=== PATIENT | female | born 1980 | race Caucasian/White ===

== ENCOUNTER 2020-05-04 12:46 | Emergency (ER) | payer BC, SELFPAY ==
[2020-05-04 13:30] VITALS: BP 128/87; PULSE 71; RESP 19; TEMP 36.8; O2SAT 98; BMI 35.1
--- NOTE | 2020-05-04 13:54 | HMH.EDUTC ---
[facility] [place] Clinical Impression: Exposure to COVID-19 virus Disposition: Home, Self-Care Condition on Discharge: Good Instructions: DI for COVID-19 (Suspected or Confirmed ), COVID-19: Testing and Tracing, Preventing the Spread of Coronavirus Discharge Instructions Additional Instructions: *Monitor Temp, Over the counter Motrin or Tylenol as directed/as needed Tylenol every 4 hours and Motrin every 6 hours (as long as your family doctor has told you that you can take it) for fever or pain. and straight to ER if unable to lower temp less than 101.0 after medication given Follow up IMMEDIATELY for new or worsening symptoms or no Noticeable improvement over the next 48-72 hours. 911 for difficulty breathing or swallowing You were tested for today for COVID19 your test result should be back in the next 24-48 hours, you may call to the [facility] to see if your test results are back in the next 48 hours [phone] [facility] hours are 9am-9pm You was given a handout with instructions for Self Quarantine and Self isolation for while you wait on test results and what to do if they are positive If you are positive the Health Dept will be contacting you also Referrals: Jemima Hayes MD [Primary Care Provider] - As needed Forms: Work/School Release Time of Disposition: 13:55 Medical Decision Making - Molina Inquiry Pt receiving controlled substance: No Molina was queried for this patient: No Vital Signs: 05/04/20 13:30 Temperature 98.2 F Temperature Source Oral Pulse Rate [Right Brachial] 71 Respiratory Rate 19 Blood Pressure [Right Arm] 128/87 Blood Pressure Mean [Right Arm] 100 Blood Pressure Source [Right Arm] Automatic Cuff Blood Pressure Position [Right Arm] Sitting 02 Sat by Pulse Oximetry 98 Oxygen Delivery Method Room Air Orders (Tests/Meds): ORDERS Category Date Time Status Covid-19 Nasal PCR ([facility]) Routine Lab 05/04/20 13:30 Received [facility] [place] - General Stated complaint: covid test Time Seen by Provider: 05/04/20 13:54 Mode of Arrival: Ambulatory Source of Information: Patient Limitations: No Limitations Description of Symptoms (Recalled from Triage Doc. by RN): PATIENT REQUESTING COVID TEST D/T EXPOSURE; DENIES SYMPTOMS HEENT Symptoms (Recalled from RN notes): No Resp Symptoms (Recalled from RN notes): No Skin Symptoms (Recalled from RN notes): No MS Symptoms (Recalled from RN notes): No Functional Status (Recalled from RN notes): WNL - History of Present Illness Provider Complaint: Patient states that she was recently around both her children that has since tested positive for COVID States that she isnt having any symptoms but wanted to get tested - Related Data Home Medications Medication Instructions Recorded Confirmed Buspirone HCl [Buspar 5mg tablet] 5 mg PO DAILY 11/17/17 02/28/19 Eletriptan Hydrobromide [Relpax] 20 mg PO NEEDED PRN 02/28/19 02/28/19 Allergies Allergy/AdvReac Type Severity Reaction Status Date / Time No Known Allergies Allergy Verified 02/28/19 15:00 - Worker's Comp Is this a Worker's Comp case?: No [facility] History - Hepatitis A Screen Drug use history?: No High risk sexual behaviors?: No History of sexually transmitted infection?: No Currently employed?: No Childcare worker?: No Do you have indoor plumbing?: Yes Do you have electricity?: Yes Attestation statement:: This patient has been screened for Hepatitis A risk factors. I have reviewed the patient's past medical history: Yes Medical History: Denies:: Cancer, Diabetes Mellitus Type 1, Diabetes Mellitus Type 2, MRSA Amputation: No Fractures: No - Social History Smoking Status: Current every day smoker # Packs/Day (cigarettes): 1 Alcohol Intake: never Occupational Status: other Household Members: children Family Hx:: Cancer, Coronary Artery Disease, Hyperlipidemia, Hypertension ROS Obtained: Yes All systems reviewed & no additional complaints, Yes Systems reviewed as appropriate & n
[2020-05-04 14:08] VITALS: BP 128/87; PULSE 71; RESP 19; TEMP 36.8; O2SAT 98
== END 2020-05-04 14:10 | disposition home or self-care (01) ==
PROVIDERS: Emergency Provider Nurse Practitioner; PCP Family Medicine
DX: Z20.822 Contact with and (suspected) exposure to COVID-19 (principal)
CPT/HCPCS: 99202; G0463; U0003

== ENCOUNTER 2020-05-13 10:23 | Emergency (ER) | payer BC, SELFPAY ==
[2020-05-13 10:23] VITALS: BP 133/68; PULSE 77; RESP 18; TEMP 36.6; O2SAT 98; BMI 30.9
--- NOTE | 2020-05-13 10:43 | HMH.EDUTC ---
[facility] [place] Disposition Clinical Impression: Encounter for laboratory testing for COVID-19 virus Disposition: Home, Self-Care Condition on Discharge: Good Instructions: DI for COVID-19 (Suspected or Confirmed ), Coronavirus Disease 2019, Preventing the Spread of Coronavirus Discharge Instructions Additional Instructions: *Monitor Temp, Over the counter Motrin or Tylenol as directed/as needed Tylenol every 4 hours and Motrin every 6 hours (as long as your family doctor has told you that you can take it) for fever or pain. and straight to ER if unable to lower temp less than 101.0 after medication given Follow up IMMEDIATELY for new or worsening symptoms or no Noticeable improvement over the next 48-72 hours. 911 for difficulty breathing or swallowing You were tested for today for COVID19 your test result should be back in the next 24-48 hours, you may call to the [facility] to see if your test results are back in the next 48 hours [phone] [facility] hours are 9am-9pm You was given a handout with instructions for Self Quarantine and Self isolation for while you wait on test results and what to do if they are positive If you are positive the Health Dept will be contacting you also Referrals: Jemima Hayes MD [Primary Care Provider] - As needed Forms: Work/School Release Time of Disposition: 10:45 Medical Decision Making - Molina Inquiry Pt receiving controlled substance: No Molina was queried for this patient: No Vital Signs: 05/13/20 10:23 Temperature 97.8 F Temperature Source Oral Pulse Rate [Right] 77 Respiratory Rate 18 Blood Pressure [Right Arm] 133/68 Blood Pressure Mean [Right Arm] 89 02 Sat by Pulse Oximetry 98 Orders (Tests/Meds): ORDERS Category Date Time Status Covid-19 Nasal PCR Sendout P&C Stat Lab 05/13/20 10:25 Ordered [facility] [place] HPI - General Stated complaint: exposure Time Seen by Provider: 05/13/20 10:43 Description of Symptoms (Recalled from Triage Doc. by RN): pt request covid test pt has no symptoms HEENT Symptoms (Recalled from RN notes): No Resp Symptoms (Recalled from RN notes): No Skin Symptoms (Recalled from RN notes): No MS Symptoms (Recalled from RN notes): No Functional Status (Recalled from RN notes): wnl - History of Present Illness Provider Complaint: Patient states that she needs to get a COVID test to return to work State that her daughters recently was positive for COVID and she has to have a test to return to work - Related Data Home Medications Medication Instructions Recorded Confirmed Buspirone HCl [Buspar 5mg tablet] 5 mg PO DAILY 11/17/17 02/28/19 Eletriptan Hydrobromide [Relpax] 20 mg PO NEEDED PRN 02/28/19 02/28/19 Allergies Allergy/AdvReac Type Severity Reaction Status Date / Time No Known Allergies Allergy Verified 05/13/20 10:39 - Worker's Comp Is this a Worker's Comp case?: No Is this an H Worker's Comp?: No Is this a Leo Worker's Comp?: No [facility] History - Hepatitis A Screen Drug use history?: No High risk sexual behaviors?: No History of sexually transmitted infection?: No Currently employed?: No Childcare worker?: No Do you have indoor plumbing?: Yes Do you have electricity?: Yes Attestation statement:: This patient has been screened for Hepatitis A risk factors. I have reviewed the patient's past medical history: Yes Medical History: Denies:: Cancer, Diabetes Mellitus Type 1, Diabetes Mellitus Type 2, MRSA Amputation: No Fractures: No - Social History Smoking Status: Current every day smoker # Packs/Day (cigarettes): 1 Alcohol Intake: never Occupational Status: other Household Members: children Family Hx:: Cancer, Coronary Artery Disease, Hyperlipidemia, Hypertension ROS Obtained: Yes All systems reviewed & no additional complaints, Yes Systems reviewed as appropriate & no additional complaints - Constitutional Constitutional: Reports system reviewed and no additional complaints, except as docu, Denies body ache,
[2020-05-13 10:51] VITALS: BP 133/68; PULSE 77; RESP 18; TEMP 36.6; O2SAT 98
[2020-05-14 11:39] LABS: Covid-19 Nasal PCR Sendout P&C NEGATIVE
== END 2020-05-13 10:57 | disposition home or self-care (01) ==
PROVIDERS: Emergency Provider Nurse Practitioner; PCP Family Medicine
DX: Z20.822 Contact with and (suspected) exposure to COVID-19 (principal); F17.210 Nicotine dependence, cigarettes, uncomplicated
CPT/HCPCS: 99202; G0463; U0004

== ENCOUNTER → 2020-09-18 07:58 | Outpatient (CLI) | payer BC, SELFPAY ==
--- NOTE | 2020-09-18 08:05 | US_ITS ---
PROCEDURE: US ABDOMEN COMPLETE CLINICAL INDICATION: RUQ PAIN COMPARISON: US RUQ US RUQ-(ABD LTD)1ORGAN/QUAD/FU from 08/12/2016 FINDINGS: PANCREAS: Unremarkable. No obvious mass or abnormal fluid collection. No ductal dilatation LIVER: No focal liver lesions demonstrated. Homogeneous echogenicity. No intrahepatic biliary ductal dilatation evident. There is appropriate direction of blood flow within a non dilated portal vein RIGHT KIDNEY: Unremarkable. Normal size and echogenicity. No hydronephrosis LEFT KIDNEY: Unremarkable. Normal size and echogenicity. No hydronephrosis GALLBLADDER: No gallstones, gallbladder wall thickening, pericholecystic fluid, or biliary dilatation. AORTA: No evidence of aneurysmal dilatation. SPLEEN: Unremarkable. Normal size and echogenicity ASCITES: None demonstrated. IMPRESSION: Unremarkable abdominal ultrasound. Dictated by: Marcus Ferreira MD 09/19/2020 07:09 Marcus Ferreira MD in [place] 09/19/2020 07:09
== END ==
PROVIDERS: PCP Family Medicine; Visit Provider Family Medicine
DX: R10.11 Right upper quadrant pain (principal)
CPT/HCPCS: 76700

== ENCOUNTER → 2020-10-13 10:06 | Outpatient (CLI) | payer BC, SELFPAY ==
--- NOTE | 2020-10-13 10:09 | NM_ITS ---
PROCEDURE: NM HEPATOBILIARY W PHARM CLINICAL INDICATION: RUQ PAIN COMPARISON: No exams were available for comparison FINDINGS: There is normal homogeneous uptake within the liver with normal uptake in the biliary tree and gallbladder and normal excretion of radiotracer into the duodenum by 1 hour. With IV injection of CCK, the gallbladder ejection fraction is normal at 50 percent (normal is 35 percent or greater). The patient did complain of mild 3/10 upper abdominal pain with IV injection of CCK. IMPRESSION: Normal hepatobiliary scan with normal gallbladder ejection fraction of 50 percent. Mild 3/10 upper abdominal pain with IV injection of CCK. Dictated by: Delonte Ying MD 10/13/2020 15:47 Delonte Ying MD in [place] 10/13/2020 15:47
--- NOTE | 2020-10-13 10:43 | HMH.ITSHM ---
Current Home Medications as stated by this patient Tori Earl or commercial representative. []MARIAELENA
== END ==
PROVIDERS: PCP Family Medicine; Visit Provider Family Medicine
DX: R10.11 Right upper quadrant pain (principal)
CPT/HCPCS: 78227; A9537; J2805

== ENCOUNTER 2020-12-28 09:14 | Emergency (ER) | payer BC, SELFPAY ==
[2020-12-28 10:05] VITALS: BP 123/74; PULSE 76; RESP 19; TEMP 37.1; O2SAT 98; BMI 33.0
--- NOTE | 2020-12-28 10:35 | HMH.EDUTC ---
[facility] [place] Disposition Clinical Impression: Encounter for laboratory testing for COVID-19 virus Disposition: Home, Self-Care Condition on Discharge: Good Instructions: DI for COVID-19 (Suspected or Confirmed ), Preventing the Spread of Coronavirus Discharge Instructions Additional Instructions: *Monitor Temp, Over the counter Motrin or Tylenol as directed/as needed Tylenol every 4 hours and Motrin every 6 hours (as long as your family doctor has told you that you can take it) for fever or pa-in. and straight to ER if unable to lower temp less than 101.0 after medication given Follow up IMMEDIATELY for new or worsening symptoms or no Noticeable improvement over the next 48-72 hours. 911 for difficulty breathing or swallowing You were tested for today for COVID19 your test result should be back in the next 24-48 hours, Check the [facility] Portal to see if your test results are back in the next 48 it may say detected that means your result is positive.You was given handout instructions on how log on and see your results. If you do not have internet access you may call the [facility] for your results [phone] You was given a handout with instructions for Self Quarantine and Self isolation for while you wait on test results and what to do if they are positive If you are positive the Health Dept will be contacting you also Make sure to take your Vitamins Vit. C Vit D and Zinc if you can take them Referrals: Ronak Reyna MD [Primary Care Provider] - As needed Forms: Work/School Release Time of Disposition: 10:36 Medical Decision Making - Molina Inquiry Pt receiving controlled substance: No Molina was queried for this patient: No Vital Signs: 12/28/20 10:05 Temperature 98.7 F Temperature Source Oral Pulse Rate [Right Brachial] 76 Respiratory Rate 19 Blood Pressure [Right Arm] 123/74 Blood Pressure Mean [Right Arm] 90 Blood Pressure Source [Right Arm] Automatic Cuff Blood Pressure Position [Right Arm] Sitting 02 Sat by Pulse Oximetry 98 Oxygen Delivery Method Room Air [facility] [place] HPI - General Stated complaint: covid test Time Seen by Provider: 12/28/20 10:36 Mode of Arrival: Ambulatory Source of Information: Patient Limitations: No Limitations Description of Symptoms (Recalled from Triage Doc. by RN): COVID TEST D/T EXPOSURE. DENIES SYMPTOMS HEENT Symptoms (Recalled from RN notes): No Resp Symptoms (Recalled from RN notes): No Skin Symptoms (Recalled from RN notes): No MS Symptoms (Recalled from RN notes): No Functional Status (Recalled from RN notes): WNL - History of Present Illness Provider Complaint: Patient state that she has been on quarantine at work due to exposure to COVID State that she has to have a negative COVID test before she can return to work Denies symptoms - Related Data Home Medications Medication Instructions Recorded Confirmed Buspirone HCl [Buspar 5mg tablet] 5 mg PO DAILY 11/17/17 02/28/19 Eletriptan Hydrobromide [Relpax] 20 mg PO NEEDED PRN 02/28/19 02/28/19 Allergies Allergy/AdvReac Type Severity Reaction Status Date / Time No Known Allergies Allergy Verified 05/13/20 10:39 - Worker's Comp Is this a Worker's Comp case?: No [facility] History - Hepatitis A Screen Drug use history?: No High risk sexual behaviors?: No History of sexually transmitted infection?: No Currently employed?: No Childcare worker?: No Do you have indoor plumbing?: Yes Do you have electricity?: Yes Attestation statement:: This patient has been screened for Hepatitis A risk factors. I have reviewed the patient's past medical history: Yes Medical History: Denies:: Cancer, Diabetes Mellitus Type 1, Diabetes Mellitus Type 2, MRSA Amputation: No Fractures: No - Social History Smoking Status: Current every day smoker # Packs/Day (cigarettes): 1 Alcohol Intake: never Occupational Status: other Household Members: children Family Hx:: Cancer, Coronary Artery Disease, Hyperlipidemia, Hypertension R
[2020-12-28 10:40] VITALS: BP 123/74; PULSE 76; RESP 19; TEMP 37.1; O2SAT 98
--- NOTE | 2020-12-29 12:48 | PC.NURSE ---
Notified pt of positive results
== END 2020-12-28 10:44 | disposition home or self-care (01) ==
PROVIDERS: Emergency Provider Nurse Practitioner; PCP Family Medicine
DX: U07.1 COVID-19 (principal); F17.210 Nicotine dependence, cigarettes, uncomplicated
CPT/HCPCS: 99202; G0463; U0003

== ENCOUNTER 2021-01-04 20:01 | Emergency (ER) | payer BC, SELFPAY ==
[2021-01-04 20:45] VITALS: BP 150/80; PULSE 63; RESP 18; TEMP 36.4; O2SAT 97; BMI 33.0
--- NOTE | 2021-01-04 21:16 | HMH.EDUTC ---
[facility] [place] Disposition Clinical Impression: Encounter for laboratory testing for COVID-19 virus Disposition: Home, Self-Care Condition on Discharge: Good Instructions: DI for COVID-19 (Suspected or Confirmed ), Preventing the Spread of Coronavirus Discharge Instructions Additional Instructions: *Monitor Temp, Over the counter Motrin or Tylenol as directed/as needed Tylenol every 4 hours and Motrin every 6 hours (as long as your family doctor has told you that you can take it) for fever or pain. and straight to ER if unable to lower temp less than 101.0 after medication given Follow up IMMEDIATELY for new or worsening symptoms or no Noticeable improvement over the next 48-72 hours. 911 for difficulty breathing or swallowing You were tested for today for COVID19 your test result should be back in the next 24-48 hours, You was given instructions to check on [facility] for your results if you do not have internet access you may call the [facility] You was given a handout with instructions for Self Quarantine and Self isolation for while you wait on test results and what to do if they are positive If you are positive the Health Dept will be contacting you also Make sure to take your Vitamins Vit. C Vit D and Zinc if you can take them Referrals: Ronak Reyna MD [Primary Care Provider] - As needed Forms: Work/School Release Time of Disposition: 21:20 Medical Decision Making - Molina Inquiry Pt receiving controlled substance: No Molina was queried for this patient: No Vital Signs: 01/04/21 20:45 Temperature 97.5 F L Temperature Source Oral Pulse Rate [Right Brachial] 63 Respiratory Rate 18 Blood Pressure [Right Arm] 150/80 H Blood Pressure Mean [Right Arm] 103 Blood Pressure Source [Right Arm] Automatic Cuff Blood Pressure Position [Right Arm] Sitting 02 Sat by Pulse Oximetry 97 Oxygen Delivery Method Room Air Orders (Tests/Meds): ORDERS Category Date Time Status Covid-19 Nasal PCR ([facility]) Routine Lab 01/04/21 21:11 Ordered [facility] HPI - General Stated complaint: Covid test (12/28 Was +) Time Seen by Provider: 01/04/21 21:16 Mode of Arrival: Ambulatory Source of Information: Patient Limitations: No Limitations Description of Symptoms (Recalled from Triage Doc. by RN): PATIENT TESTED POSITIVE A WEEK AGO. NEEDING NEGATIVE COVID TEST TO RETURN TO WORK HEENT Symptoms (Recalled from RN notes): No Resp Symptoms (Recalled from RN notes): No Skin Symptoms (Recalled from RN notes): No MS Symptoms (Recalled from RN notes): No Functional Status (Recalled from RN notes): WNL - History of Present Illness Provider Complaint: Patient states that she was exposed to COVID several weeks ago and was in quarantine States that they made her get tested for COVID before she could return on 12/28 and she was positive for COVID states that she is not having any symptoms and came back in to get tested again to see if she was negative so she can return to work - Related Data Home Medications Medication Instructions Recorded Confirmed Buspirone HCl [Buspar 5mg tablet] 5 mg PO DAILY 11/17/17 02/28/19 Eletriptan Hydrobromide [Relpax] 20 mg PO NEEDED PRN 02/28/19 02/28/19 Allergies Allergy/AdvReac Type Severity Reaction Status Date / Time No Known Allergies Allergy Verified 05/13/20 10:39 - Worker's Comp Is this a Worker's Comp case?: No [facility] History - Hepatitis A Screen Drug use history?: No High risk sexual behaviors?: No History of sexually transmitted infection?: No Currently employed?: No Childcare worker?: No Do you have indoor plumbing?: Yes Do you have electricity?: Yes Attestation statement:: This patient has been screened for Hepatitis A risk factors. I have reviewed the patient's past medical history: Yes Medical History: Denies:: Cancer, Diabetes Mellitus Type 1, Diabetes Mellitus Type 2, MRSA Amputation: No Fractures: No - Social History Smoking Status: Current every day smoker # P
[2021-01-04 21:22] VITALS: BP 150/80; PULSE 63; RESP 18; TEMP 36.4; O2SAT 97
== END 2021-01-04 21:23 | disposition home or self-care (01) ==
PROVIDERS: Emergency Provider Nurse Practitioner; PCP Family Medicine
DX: Z20.822 Contact with and (suspected) exposure to COVID-19 (principal)
CPT/HCPCS: 99202; G0463; U0003

== ENCOUNTER → 2021-02-17 17:59 | Outpatient (CLI) | payer BC, SELFPAY | PROVIDERS: PCP Family Medicine; Visit Provider Nurse Practitioner | DX: Z20.822 Contact with and (suspected) exposure to COVID-19 (principal) | CPT/HCPCS: C9803; U0003; U0005 ==

== ENCOUNTER 2021-03-13 18:55 | Emergency (ER) | payer BC, SELFPAY ==
[2021-03-13 19:00] VITALS: BP 177/81; PULSE 88; RESP 18; TEMP 37.1; O2SAT 97; BMI 30.8
[2021-03-13 19:34] LABS: UTC Strep Screen (Rapid) Negative (Negative)
--- NOTE | 2021-03-13 19:48 | HMH.EDUTC ---
[facility] [place]ression: Bronchitis Disposition: Home, Self-Care Condition on Discharge: Good Instructions: Acute Bronchitis, DI for Acute Bronchitis Additional Instructions: Start antibiotic today. Be sure to complete entire prescription even if feeling better Tylenol and ibuprofen as needed for pain or fever Humidifier/vaporizer/hot steamy shower Follow-up with primary care tomorrow. Follow-up immediately in the ER of the [facility] for new or worsening symptoms or no noticeable improvement over the next 48-72 hours. Stop smoking Yolanda Isabel will not cause drowsiness to use at bedtime to help stop cough so that she can get some sleep Start steroids tomorrow. Helps with inflammation therefore coughing and wheezing. Follow directions on package. Prescriptions: predniSONE [Prednisone 20mg Tab] 20 mg PO BID #10 tab Transmission Status: Pending to [facility] Azithromycin [Zithromax 250mg tab] 250 mg PO DIRECTED 4 Days #4 tab Transmission Status: Pending to [facility] Referrals: Ronak Reyna MD [Primary Care Provider] - Time of Disposition: 19:52 Medical Decision Making - Molina Inquiry Pt receiving controlled substance: No Vital Signs: 03/13/21 19:00 Temperature 98.7 F Temperature Source Oral Pulse Rate [Right Brachial] 88 Respiratory Rate 18 Blood Pressure [Left Arm] 177/81 H Blood Pressure Mean [Left Arm] 113 Blood Pressure Source [Left Arm] Automatic Cuff Blood Pressure Position [Left Arm] Sitting 02 Sat by Pulse Oximetry 97 Oxygen Delivery Method Room Air - Lab Data Lab Results 03/13/21 19:16: Strep Scn Rapid Clinic Negative Orders (Tests/Meds): ORDERS Category Date Time Status Strep Screen Confirmation Stat Micro 03/13/21 19:16 Re[place] [facility] [place] - General Chief complaint: [facility] Stated complaint: sore throat, wheezing,cough Time Seen by Provider: 03/13/21 19:48 Mode of Arrival: Ambulatory Source of Information: Patient Limitations: No Limitations Description of Symptoms (Recalled from Triage Doc. by RN): PATIENT C/O SORE THROAT, COUGH AND WHEEZING SINCE MONDAY HEENT Symptoms (Recalled from RN notes): Yes Resp Symptoms (Recalled from RN notes): Yes Skin Symptoms (Recalled from RN notes): No MS Symptoms (Recalled from RN notes): No Functional Status (Recalled from RN notes): WNL - History of Present Illness Provider Complaint: 40 yr old female presents for sore throat, cough, wheezing and congestion since monday. - Related Data Home Medications Medication Instructions Recorded Confirmed Buspirone HCl [Buspar 5mg tablet] 5 mg PO DAILY 11/17/17 02/28/19 Eletriptan Hydrobromide [Relpax] 20 mg PO NEEDED PRN 02/28/19 02/28/19 Previous Rx's Medication Instructions Recorded Azithromycin [Zithromax 250mg 250 mg PO DIRECTED 4 Days #4 tab 03/13/21 tab] predniSONE [Prednisone 20mg 20 mg PO BID #10 tab 03/13/21 Tab] Allergies Allergy/AdvReac Type Severity Reaction Status Date / Time No Known Allergies Allergy Verified 05/13/20 10:39 - Worker's Comp Is this a Worker's Comp case?: No [facility] History - Hepatitis A Screen Drug use history?: No High risk sexual behaviors?: No History of sexually transmitted infection?: No Currently employed?: No Childcare worker?: No Do you have indoor plumbing?: Yes Do you have electricity?: Yes Attestation statement:: This patient has been screened for Hepatitis A risk factors. I have reviewed the patient's past medical history: Yes Medical History: Denies:: Cancer, Diabetes Mellitus Type 1, Diabetes Mellitus Type 2, MRSA Amputation: No Fractures: No - Social History Smoking Status: Current every day smoker # Packs/Day (cigarettes): 1 Alcohol Intake: never Occupational Status: other Household Members: children Family Hx:: Cancer, Coronary Artery Disease, Hyperlipidemia, Hypertension ROS Obtained: Yes Systems reviewed as appr
[2021-03-13 19:56] VITALS: BP 177/81; PULSE 88; RESP 18; TEMP 37.1; O2SAT 97
== END 2021-03-13 20:00 | disposition home or self-care (01) ==
PROVIDERS: Emergency Provider Nurse Practitioner Family; PCP Family Medicine
DX: J20.9 Acute bronchitis, unspecified (principal); F17.210 Nicotine dependence, cigarettes, uncomplicated
CPT/HCPCS: 87880; 99202; G0463

== ENCOUNTER 2021-05-01 11:34 | Emergency (ER) | payer BC, SELFPAY ==
[2021-05-01 11:48] VITALS: BP 200/110; PULSE 67; RESP 16; TEMP 37.1; O2SAT 97; BMI 26.6
--- NOTE | 2021-05-01 12:19 | HMH.EDGENADL ---
ED Disposition Clinical Impression: Migraine Qualifiers: Migraine type: with aura Status migrainosus presence: without status migrainosus Intractability: not intractable Qualified Code(s): G43.109 - Migraine with aura, not intractable, without status migrainosus Disposition: Home, Self-Care Condition on Discharge: Good Instructions: DI for Migraine Additional Instructions: You have been evaluated for migraine headaches. Please continue to monitor your symptoms. Keep a headache journal. Take medication as prescribed. Avoid migraine triggers. Follow-up with your primary care doctor and neurologist. Return to the emergency department at once for any new or worsening symptoms. Referrals: Jemima Hayes MD [Primary Care Provider] - Time of Disposition: 13:55 - Critical Care Critical Care Time: No Attestation: On 05/01/21, the high probability of a clinically significant, sudden or life threatening deterioration of the following system(s) required my full and direct attention, intervention and personal management. The time I documented below is in addition to time spent performing reported procedures but includes the following listed in this critical care notation. Medical Decision Making - Medical Records Medical records reviewed: Yes: I reviewed the patient's medical records. - Molina Inquiry Pt receiving controlled substance: No Vital Signs: 05/01/21 11:48 Temperature 98.7 F Temperature Source Oral Pulse Rate [Left Radial] 67 Respiratory Rate 16 02 Sat by Pulse Oximetry 97 - Lab Data Lab Results 05/01/21 12:07: Urine HCG, Qual Negative 05/01/21 12:20: WBC 10.6, RBC 4.83, Hgb 14.8, Hct 45.8, MCV 94.7, MCH 30.6, MCHC 32.3, RDW 14.5, Plt Count 320, MPV 7.8, Neut % (Auto) 75.4, Lymph % (Auto) 18.3, [place] % (Auto) 4.3, Eos % (Auto) 1.0, Baso % (Auto) 0.8, Neut # (Auto) 8.0 H, Lymph # (Auto) 2.0, [place] # (Auto) 0.5, Eos # (Auto) 0.1, Baso # (Auto) 0.1 05/01/21 12:20: Sodium 137, Potassium 3.4 L, Chloride 96 L, Carbon Dioxide 32 H, Anion Gap 12.4, BUN 9, Creatinine 0.80, Estimated Creat Clear 122, Estimated GFR 80, Est GFR ( Amer) 97, Glucose 117 H, Calcium 9.2, Total Bilirubin 0.4, AST 27, ALT 17, Alkaline Phosphatase 82, Total Protein 7.2, Albumin 4.3, Globulin 2.9, Albumin/Globulin Ratio 1.5 Result diagrams: 05/01/21 12:20 05/01/21 12:20 Orders (Tests/Meds): ED MEDICATIONS Discontinued Medications Generic Name Dose Route Start Last Admin Trade Name Romulo PRN Reason Stop Dose Admin Dexamethasone Sodium Phosphate 8 mg 05/01/21 12:39 05/01/21 12:50 Dexamethasone 4mg/Ml 1ml Vial IV 05/01/21 12:40 8 mg ONCE ONE Administration Diphenhydramine HCl 25 mg 05/01/21 12:39 05/01/21 12:51 Diphenhydramine 50mg/Ml Vial IV 05/01/21 12:40 25 mg ONCE ONE Administration Sodium Chloride 1,000 mls @ 999 mls/hr 05/01/21 12:45 05/01/21 13:10 Sod Chlor 0.9% 1000ml Bag IV 05/01/21 13:45 999 mls/hr .Q1H1M HANNAH Administration Ketorolac Tromethamine 15 mg 05/01/21 12:39 05/01/21 12:51 Ketorolac 30mg/Ml Vial IV 05/01/21 12:40 15 mg ONCE ONE Administration Metoclopramide HCl 10 mg 05/01/21 12:39 05/01/21 12:51 Metoclopramide Hcl 10mg/2ml Vial IVP 05/01/21 12:40 10 mg ONCE ONE Administration Medical Decision Narrative: In summary this is a 40-year-old female with history of migraine headaches presenting to the emergency department with a headache. Patient clinically stable on arrival. Vital signs within normal limits. Most likely diagnosis is migraine. Will obtain screening CBC, CMP, hCG. CT negative. Laboratory results show slight hypokalemia. No other acute abnormality. Patient given IV Toradol, Reglan, Benadryl, dexamethasone. On reassessment, after fluids and medication she was feeling better. Headache had decreased to more than 50%. No new or concerning features. No vision changes. No dizziness. No nausea or vomiting. Offered her next line m
[2021-05-01 12:25] LABS: Urine Pregnancy, HCG Qual. Negative (Negative)
[2021-05-01 12:30] VITALS: BP 190/98; PULSE 64; RESP 18; O2SAT 98
[2021-05-01 12:51] LABS: Basophils # 0.1 K/mm3 (0-0.2); Basophils % 0.8 % (0.1-2.0); Eosinophils # 0.1 K/mm3 (0.0-0.4); Hematocrit 45.8 % (37.0-47.0); Hemoglobin 14.8 g/dL (12.2-16.2); Lymphocytes % 18.3 % (10-50); Mean Corpuscular HGB Conc 32.3 g/dL (31.8-35.4); Mean Corpuscular Hemoglobin 30.6 pg (27.0-31.2); Mean Corpuscular Volume 94.7 fl (81-99); Mean Platelet Volume 7.8 fl (7.4-10.4); Monocytes # 0.5 K/mm3 (0.1-1.0); Monocytes % 4.3 % (1.7-9.3); Neutrophils % 75.4 % (37.0-80.0); Platelet Count 320 K/mm3 (142-424); Red Blood Count 4.83 M/mm3 (4.20-5.40); Red Cell Distribution Width 14.5 % (11.5-17.5); White Blood Count 10.6 K/mm3 (4.8-10.8)
[2021-05-01 12:52] LABS: Chloride 96 mmol/L (98-107); Sodium 137 mmol/L (136-145)
[2021-05-01 12:53] LABS: Potassium 3.4 mmoL/L (3.5-5.1)
[2021-05-01 12:55] LABS: Alanine Aminotransferase 17 U/L (12-78); Alkaline Phosphatase 82 U/L (38-126); Anion Gap 12.4 mEq/L (5-15); Aspartate Amino Transferase 27 U/L (14-36); Bilirubin,Total 0.4 mg/dl (0.2-1.3); Blood Urea Nitrogen 9 mg/dl (7-17); Calcium 9.2 mg/dl (8.4-10.2); Carbon Dioxide 32 mmol/L (22.0-30.0); Creatinine Clearance Estimated 122 mL/min (50-200); Estimated Glomerular Filt Rate 80 ml/min (>60); GFR (African American) 97 ML/MIN (>60); Glucose 117 mg/dl (74-100)
[2021-05-01 12:56] LABS: Albumin Level 4.3 g/dl (3.5-5.0); Albumin/Globulin Ratio 1.5 (1.1-1.8); Globulin 2.9 g/dL (1.3-3.2); Total Protein,Serum 7.2 g/dl (6.3-8.2)
[2021-05-01 13:13] VITALS: BP 192/91; PULSE 66; RESP 17; O2SAT 99
[2021-05-01 14:22] VITALS: BP 189/86; PULSE 70; RESP 17; TEMP 37.1; O2SAT 99
== END 2021-05-01 14:25 | disposition home or self-care (01) ==
PROVIDERS: Emergency Provider Emergency Medicine; PCP Family Medicine
DX: G43.109 Migraine with aura, not intractable, without status migrainosus (principal); F17.210 Nicotine dependence, cigarettes, uncomplicated
CPT/HCPCS: 80053; 81025; 85025; 96365; 96375; 99283

== ENCOUNTER → 2021-05-03 13:03 | Outpatient (CLI) | payer BC, SELFPAY | PROVIDERS: PCP Family Medicine; Visit Provider Nurse Practitioner | DX: Z20.822 Contact with and (suspected) exposure to COVID-19 (principal) | CPT/HCPCS: C9803; U0003; U0005 ==

== ENCOUNTER 2021-05-09 13:09 | Emergency (ER) | payer BC, SELFPAY ==
[2021-05-09 14:30] VITALS: BP 133/87; PULSE 96; RESP 20; TEMP 38.1; O2SAT 96; BMI 30.2
[2021-05-09 14:44] LABS: Adenovirus,PCR Not Detected (NotDetected); Bordetella Pertussis Not Detected (NotDetected); Chlamydophila Pneumoniae, PCR Not Detected (NotDetected); Coronavirus 19, PCR Not Detected (NotDetected); Coronavirus 229E Not Detected (NotDetected); Coronavirus NL63 Not Detected (NotDetected); Coronavirus OC43 Not Detected (NotDetected); Coronovirus HKU1,PCR Not Detected (NotDetected); Human Metapneumovirus Not Detected (NotDetected); Influenza A, PCR Not Detected (NotDetected); Influenza AH1, 2009 Not Detected (NotDetected); Influenza AH1, PCR Not Detected (NotDetected); Influenza AH3,PCR Not Detected (NotDetected); Influenza B, PCR Not Detected (NotDetected); Mycoplasma Pneumoniae, PCR Not Detected (NotDetected); Parainfluenza 1, PCR Not Detected (NotDetected); Parainfluenza 2, PCR Not Detected (NotDetected); Parainfluenza 3, PCR Not Detected (NotDetected); Parainfluenza 4, PCR Not Detected (NotDetected); Respiratory Syncytial Virus Not Detected (NotDetected); Rhinovirus/Enterovirus Not Detected (NotDetected)
[2021-05-09 14:46] LABS: UTC Influenza A Antigen Negative (Negative)
[2021-05-09 14:47] LABS: UTC Influenza B Antigen Negative (Negative)
--- NOTE | 2021-05-09 15:37 | HMH.EDUTC ---
[facility] [place] Disposition Clinical Impression: Encounter for laboratory testing for COVID-19 virus, Upper respiratory infection, viral Disposition: Home, Self-Care Condition on Discharge: Good Instructions: DI for Viral Upper Respiratory Infection -- Adult Additional Instructions: covid swab was sent to lab, call tomorrow for results. self isolate until test results are known to be negative No sign of a bacterial infection. Likely viral. Viruses can take 7-14 days to run their course. Nasal saline and bulb syringe or nose Lavonne to remove nasal drainage to help with nasal congestion. Hard to eat, drink, sleep with nasal congestion so important to keep this cleaned out. Monitor temp. Tylenol or Motrin as needed for pain or fever Encourage fluids, water, Gatorade, Powerade, Pedialyte if infant/toddler/child Warm salt water gargles Warm fluids Sore throat lozenges Sleep elevated Humidifier/vaporizer Follow-up immediately for new or worsening symptoms or no noticeable improvement over the next 48-72 hours. Referrals: Jemima Hayes MD [Primary Care Provider] - Time of Disposition: 15:40 Medical Decision Making - Molina Inquiry Pt receiving controlled substance: No Vital Signs: 05/09/21 14:30 Temperature 100.5 F H Temperature Source Oral Pulse Rate [Right Brachial] 96 H Respiratory Rate 20 Blood Pressure [Right Arm] 133/87 Blood Pressure Mean [Right Arm] 102 Blood Pressure Source [Right Arm] Automatic Cuff Blood Pressure Position [Right Arm] Sitting 02 Sat by Pulse Oximetry 96 Oxygen Delivery Method Room Air - Lab Data Lab Results 05/09/21 14:35: Influenza Type A Ag Negative, Influenza Type B Ag Negative Orders (Tests/Meds): ORDERS Category Date Time Status Full Resp Panel w/COVID ([facility]) Routine Lab 05/09/21 14:[address] [facility] [place] HPI - General Chief complaint: [facility] Stated complaint: covid test, symptoms Time Seen by Provider: 05/09/21 15:37 Mode of Arrival: Ambulatory Source of Information: Patient Limitations: No Limitations Description of Symptoms (Recalled from Triage Doc. by RN): PATIENT C/O FEVER, FATIGUE AND FEELING BAD THIS WEEKEND. REQUESTING COVID TEST HEENT Symptoms (Recalled from RN notes): No Resp Symptoms (Recalled from RN notes): No Skin Symptoms (Recalled from RN notes): No MS Symptoms (Recalled from RN notes): No Functional Status (Recalled from RN notes): WNL - History of Present Illness Provider Complaint: 40 yr old female presnets for cough,body aches,sore throat and nasal congestion request covid test - Related Data Home Medications Medication Instructions Recorded Confirmed Buspirone HCl [Buspar 5mg tablet] 5 mg PO DAILY 11/17/17 02/28/19 Eletriptan Hydrobromide [Relpax] 20 mg PO NEEDED PRN 02/28/19 02/28/19 Previous Rx's Medication Instructions Recorded Azithromycin [Zithromax 250mg 250 mg PO DIRECTED 4 Days #4 tab 03/13/21 tab] Benzonatate [Benzonatate 100mg 100 mg PO BID PRN 7 Days #14 cap 03/13/21 cap] predniSONE [Prednisone 20mg 20 mg PO BID #10 tab 03/13/21 Tab] Allergies Allergy/AdvReac Type Severity Reaction Status Date / Time No Known Allergies Allergy Verified 05/13/20 10:39 - Worker's Comp Is this a Worker's Comp case?: No [facility] History - Hepatitis A Screen Drug use history?: No High risk sexual behaviors?: No History of sexually transmitted infection?: No Currently employed?: No Childcare worker?: No Do you have indoor plumbing?: Yes Do you have electricity?: Yes Attestation statement:: This patient has been screened for Hepatitis A risk factors. I have reviewed the patient's past medical history: Yes Medical History: Denies:: Cancer, Diabetes Mellitus Type 1, Diabetes Mellitus Type 2, MRSA Amputation: No Fractures: No - Social History Smoking Status: Current every day smoker # Packs/Day (cigarettes): 1 Alcohol Intake: never Occupational Status: other Household Membe
[2021-05-09 15:41] VITALS: BP 133/87; PULSE 96; RESP 20; TEMP 38.1; O2SAT 96
== END 2021-05-09 15:48 | disposition home or self-care (01) ==
PROVIDERS: Emergency Provider Nurse Practitioner Family; PCP Family Medicine
DX: Z20.822 Contact with and (suspected) exposure to COVID-19 (principal); J06.9 Acute upper respiratory infection, unspecified; F17.210 Nicotine dependence, cigarettes, uncomplicated
CPT/HCPCS: 87581; 87632; 87798; 87804; 99202; C9803; G0463; U0003; U0005

== ENCOUNTER 2021-05-16 10:24 | Emergency (ER) | payer BC, SELFPAY ==
[2021-05-16 13:54] VITALS: BP 126/91; PULSE 82; RESP 20; TEMP 36.5; O2SAT 95; BMI 26.6
--- NOTE | 2021-05-16 14:37 | HMH.EDUTC ---
[facility] [place] Clinical Impression: Viral syndrome, Bronchitis, Exposure to COVID-19 virus Disposition: Home, Self-Care Condition on Discharge: Good Instructions: Acute Bronchitis, DI for Acute Bronchitis, DI for Viral Syndrome, DI for COVID-19 (Suspected or Confirmed ), Preventing the Spread of Coronavirus Discharge Instructions Additional Instructions: Drink plenty of fluids. Take tylenol or ibuprofen for pain or fever. Take the medications as directed. Follow up with your regular doctor. GO TO THE ER FOR ANY WORSENING SYMPTOMS Quarantine until you know the results of your covid-19 test. Notify your school or workplace of your results and follow their instructions regarding return to work/school. The cough medication (promethazine dm) will make you drowsy, so don't drive or operate heavy machinery after taking it. Prescriptions: Promethazine/Dextromethorphan [Promethazine-Dm Syrup] 5 ml PO Q6HP PRN #240 ml PRN Reason: Cough Transmission Status: Received by [facility] methylPREDNISolone [Medrol] 4 mg PO DIRECTED 6 Days #21 packet Transmission Status: Received by [facility] Azithromycin [Z-Iker 250mg Tab*] 250 mg PO UD DOSE PK #6 tab Transmission Status: Received by [facility] Referrals: Jemima Hayes MD [Primary Care Provider] - Forms: Work/School Release Time of Disposition: 15:04 Medical Decision Making - Medical Records Medical records reviewed: No: I reviewed the patient's medical records. - Molina Inquiry Pt receiving controlled substance: No Vital Signs: 05/16/21 13:54 05/16/21 15:12 Temperature 97.7 F 97.7 F Temperature Source Oral Pulse Rate 82 Pulse Rate [Left] 82 Respiratory Rate 20 20 Blood Pressure 126/91 H Blood Pressure [Right Arm] 126/91 H Blood Pressure Mean [Right Arm] 102 02 Sat by Pulse Oximetry 95 - Lab Data Lab results reviewed: Yes: I reviewed the patient's lab results. Lab Results 05/16/21 13:53: Group A Strep Rapid Negative 05/16/21 14:09: Influenza Type A Ag Negative, Influenza Type B Ag Negative Orders (Tests/Meds): ORDERS Category Date Time Status Strep Screen Confirmation Stat Micro 05/16/21 13:53 Received [facility] [place]PI - General Stated complaint: covid test Time Seen by Provider: 05/16/21 14:37 Mode of Arrival: Ambulatory Source of Information: Patient Limitations: No Limitations Description of Symptoms (Recalled from Triage Doc. by RN): pt c/o fever, nausea, sore throat and congestion. daughter is positive for covid. HEENT Symptoms (Recalled from RN notes): Yes (sore throat and congestion) Resp Symptoms (Recalled from RN notes): No Skin Symptoms (Recalled from RN notes): No MS Symptoms (Recalled from RN notes): No Functional Status (Recalled from RN notes): wnl - History of Present Illness Provider Complaint: She states that she has had a cough and sinus congestion for the past 2 weeks. She has had 4 negative covid test prior to today. But, her daughter tested positive for covid-19 last night on a PCR test here. She denies fever, but she has had chills, sore throat, cough, and chest congestion. - Related Data Home Medications Medication Instructions Recorded Confirmed Buspirone HCl [Buspar 5mg tablet] 5 mg PO DAILY 11/17/17 02/28/19 Eletriptan Hydrobromide [Relpax] 20 mg PO NEEDED PRN 02/28/19 02/28/19 Previous Rx's Medication Instructions Recorded Azithromycin [Zithromax 250mg 250 mg PO DIRECTED 4 Days #4 tab 03/13/21 tab] Benzonatate [Benzonatate 100mg 100 mg PO BID PRN 7 Days #14 cap 03/13/21 cap] predniSONE [Prednisone 20mg 20 mg PO BID #10 tab 03/13/21 Tab] Azithromycin [Z-Iker 250mg Tab*] 250 mg PO UD DOSE PK #6 tab 05/16/21 Promethazine/Dextromethorphan 5 ml PO Q6HP PRN #240 ml 05/16/21 [Promethazine-Dm Syrup] methylPREDNISolone [Medrol] 4 mg PO DIRECTED 6 Days #21 05/16/21 packet Allergies Allergy/AdvReac Type Severity Reaction St
[2021-05-16 14:38] LABS: UTC Influenza A Antigen Negative (Negative); UTC Influenza B Antigen Negative (Negative)
[2021-05-16 14:53] LABS: Strep Scrn Group A (Rapid) Negative (Negative)
[2021-05-16 15:12] VITALS: BP 126/91; PULSE 82; RESP 20; TEMP 36.5
== END 2021-05-16 15:13 | disposition home or self-care (01) ==
PROVIDERS: Emergency Provider Nurse Practitioner Family; PCP Family Medicine
DX: U07.1 COVID-19 (principal); J20.9 Acute bronchitis, unspecified
CPT/HCPCS: 87430; 87804; 99203; C9803; G0463; U0003; U0005

== ENCOUNTER → 2021-05-21 17:05 | Outpatient (CLI) | payer BC, SELFPAY | PROVIDERS: Visit Provider Nurse Practitioner | DX: U07.1 COVID-19 (principal) | CPT/HCPCS: C9803; U0003; U0005 ==

== ENCOUNTER 2021-11-01 08:01 | Emergency (ER) | payer BC, SELFPAY ==
[2021-11-01 08:02] VITALS: BP 118/79; PULSE 60; RESP 18; TEMP 36.9; O2SAT 99; BMI 33.0
--- NOTE | 2021-11-01 08:19 | HMH.EDGENADL ---
ED Disposition Clinical Impression: Contact dermatitis Qualifiers: Contact dermatitis type: unspecified Disposition: Home, Self-Care Condition on Discharge: Fair Instructions: Poison [place], Poison [place], Poison [place], Contact Dermatitis, DI for Contact Dermatitis Additional Instructions: Follow-up with your primary care doctor in about 1 week if you do not feel any better. Return to the emergency department if you feel worse in any way. Prescriptions: hydrOXYzine HCL [Hydroxyzine HCl] 25 mg PO QID PRN #20 tab PRN Reason: itching Transmission Status: Pending to [id number] Referrals: Jemima Hayes MD [Primary Care Provider] - - Critical Care Critical Care Time: No Attestation: On , the high probability of a clinically significant, sudden or life threatening deterioration of the following system(s) required my full and direct attention, intervention and personal management. The time I documented below is in addition to time spent performing reported procedures but includes the following listed in this critical care notation. Medical Decision Making - Molina Inquiry Pt receiving controlled substance: No Vital Signs: 11/01/21 08:02 Temperature 98.5 F Temperature Source Oral Pulse Rate [Right Radial] 60 Respiratory Rate 18 Blood Pressure [Right Arm] 118/79 Blood Pressure Mean [Right Arm] 92 Blood Pressure Source [Right Arm] Automatic Cuff Blood Pressure Position [Right Arm] Sitting 02 Sat by Pulse Oximetry 99 Oxygen Delivery Method Room Air General Adult HPI - General Chief complaint: Skin/Abscess/Foreign Body Stated complaint: insect in ear Time Seen by Provider: 11/01/21 08:19 Mode of Arrival: Ambulatory Limitations: No Limitations Description of Symptoms (Recalled from ER Triage Doc. by RN): Pt reports a bug in her R ear. Pt reports flushed her ear with peroxide this morning [employer] but was unable to get bug out. - History of Present Illness HPI narrative: The patient states that there is an insect in her right ear. She felt a buzzing and heard a buzzing on the way here. Denies any pain. - Related Data Home Medications Medication Instructions Recorded Confirmed Buspirone HCl [Buspar 5mg tablet] 5 mg PO DAILY 11/17/17 02/28/19 Eletriptan Hydrobromide [Relpax] 20 mg PO NEEDED PRN 02/28/19 02/28/19 Previous Rx's Medication Instructions Recorded Azithromycin [Zithromax 250mg 250 mg PO DIRECTED 4 Days #4 tab 03/13/21 tab] Benzonatate [Benzonatate 100mg 100 mg PO BID PRN 7 Days #14 cap 03/13/21 cap] predniSONE [Prednisone 20mg 20 mg PO BID #10 tab 03/13/21 Tab] Azithromycin [Z-Iker 250mg Tab*] 250 mg PO UD DOSE PK #6 tab 05/16/21 Promethazine/Dextromethorphan 5 ml PO Q6HP PRN #240 ml 05/16/21 [Promethazine-Dm Syrup] methylPREDNISolone [Medrol] 4 mg PO DIRECTED 6 Days #21 05/16/21 packet hydrOXYzine HCL [Hydroxyzine HCl] 25 mg PO QID PRN #20 tab 11/01/21 Allergies Allergy/AdvReac Type Severity Reaction Status Date / Time No Known Allergies Allergy Verified 05/13/20 10:39 [facility] History - Hepatitis A Screen Drug use history?: No Attestation statement:: This patient has been screened for Hepatitis A risk factors. Medical History: Denies:: Cancer, Diabetes Mellitus Type 1, Diabetes Mellitus Type 2, MRSA Amputation: No Fractures: No - Social History Smoking Status: Current every day smoker # Packs/Day (cigarettes): 1 Alcohol Intake: never Occupational Status: other Household Members: children Family Hx:: Cancer, Coronary Artery Disease, Hyperlipidemia, Hypertension ROS Obtained: Yes All systems reviewed & no additional complaints - Integumentary/Breasts Skin/Breast: Reports other (The patient complains of generalized pruritus for the last 2 weeks) Physical Exam - General General appearance: alert - Head Head exam: atraumatic, normocephalic, normal inspection - Eye Eye exam: Present: normal appearance, PERRL, EOMI
[2021-11-01 08:32] VITALS: BP 121/74; PULSE 62; RESP 16; TEMP 36.6; O2SAT 98
== END 2021-11-01 08:33 | disposition home or self-care (01) ==
PROVIDERS: Emergency Provider Emergency Medicine; PCP Family Medicine
DX: L25.9 Unspecified contact dermatitis, unspecified cause
CPT/HCPCS: 99282

== ENCOUNTER 2021-11-28 14:48 | Emergency (ER) | payer BC, SELFPAY ==
--- NOTE | 2021-11-28 14:58 | HMH.EDUTC ---
[facility] – [place], [place] Disposition Clinical Impression: COVID-19 Disposition: Home, Self-Care Condition on Discharge: Good Instructions: DI for COVID-19 (Suspected or Confirmed ), Preventing the Spread of Coronavirus Discharge Instructions Additional Instructions: Drink plenty of fluids. Take tylenol or ibuprofen for pain or fever. Take the medications as directed. Follow up with your regular doctor. GO TO THE ER FOR ANY WORSENING SYMPTOMS Quarantine until you know the results of your covid-19 test. Notify your school or workplace of your results and follow their instructions regarding return to work/school. Prescriptions: Ondansetron [Zofran 4mg ODT] 4 mg PO Q8HP PRN #20 tab PRN Reason: Nausea Transmission Status: Received by [id number] Benzonatate [Benzonatate 100mg cap] 100 mg PO TIDP PRN #30 cap PRN Reason: Cough Transmission Status: Received by [id number] Referrals: Jemima Hayes MD [Primary Care Provider] - Forms: Work/School Release Time of Disposition: 15:31 Medical Decision Making - Medical Records Medical records reviewed: No: I reviewed the patient's medical records. - Molina Inquiry Pt receiving controlled substance: No Vital Signs: 11/28/21 15:06 11/28/21 15:32 Temperature 98.6 F 98.6 F Temperature Source Oral Pulse Rate 88 Pulse Rate [Left] 88 Respiratory Rate 15 15 Blood Pressure 123/83 Blood Pressure [Right Arm] 123/83 Blood Pressure Mean [Right Arm] 96 02 Sat by Pulse Oximetry 98 [facility] [place], [place] HPI - General Stated complaint: covid test, congestion Time Seen by Provider: 11/28/21 15:10 - History of Present Illness Provider Complaint: She tested positive on a home covid test. She needs a pcr test for her work. She states that her symptoms began 2 days ago. - Related Data Home Medications Medication Instructions Recorded Confirmed Buspirone HCl [Buspar 5mg tablet] 5 mg PO DAILY 11/17/17 02/28/19 Eletriptan Hydrobromide [Relpax] 20 mg PO NEEDED PRN 02/28/19 02/28/19 Previous Rx's Medication Instructions Recorded Azithromycin [Zithromax 250mg 250 mg PO DIRECTED 4 Days #4 tab 03/13/21 tab] Benzonatate [Benzonatate 100mg 100 mg PO BID PRN 7 Days #14 cap 03/13/21 cap] predniSONE [Prednisone 20mg 20 mg PO BID #10 tab 03/13/21 Tab] Azithromycin [Z-Iker 250mg Tab*] 250 mg PO UD DOSE PK #6 tab 05/16/21 Promethazine/Dextromethorphan 5 ml PO Q6HP PRN #240 ml 05/16/21 [Promethazine-Dm Syrup] methylPREDNISolone [Medrol] 4 mg PO DIRECTED 6 Days #21 05/16/21 packet hydrOXYzine HCL [Hydroxyzine HCl] 25 mg PO QID PRN #20 tab 11/01/21 Benzonatate [Benzonatate 100mg 100 mg PO TIDP PRN #30 cap 11/28/21 cap] Ondansetron [Zofran 4mg ODT] 4 mg PO Q8HP PRN #20 tab 11/28/21 Allergies Allergy/AdvReac Type Severity Reaction Status Date / Time No Known Allergies Allergy Verified 11/28/21 15:09 [facility] History - Hepatitis A Screen Attestation statement:: This patient has been screened for Hepatitis A risk factors. I have reviewed the patient's past medical history: Yes Medical History: Denies:: Cancer, Diabetes Mellitus Type 1, Diabetes Mellitus Type 2, MRSA Amputation: No Fractures: No - Social History Smoking Status: Current every day smoker # Packs/Day (cigarettes): 1 Alcohol Intake: never Occupational Status: other Household Members: children Family Hx:: Cancer, Coronary Artery Disease, Hyperlipidemia, Hypertension ROS Obtained: Yes All systems reviewed & no additional complaints - Constitutional Constitutional: Reports as per HPI - Eyes Eyes: Denies eye discharge - ENT Ears, Nose, Mouth, and Throat: Denies dizziness, Denies otalgia, Reports sore throat - Cardiovascular Cardiovascular: Denies chest pain - Respiratory Respiratory: Denies chest congestion, Reports cough Physical Exam - General General appearance: alert, in no apparent distress - Head Head exam: atra
[2021-11-28 15:06] VITALS: BP 123/83; PULSE 88; RESP 15; TEMP 37; O2SAT 98; BMI 33.0
[2021-11-28 15:32] VITALS: BP 123/83; PULSE 88; RESP 15; TEMP 37
== END 2021-11-28 15:36 | disposition home or self-care (01) ==
PROVIDERS: Emergency Provider Nurse Practitioner Family; PCP Family Medicine
DX: U07.1 COVID-19 (principal)
CPT/HCPCS: 99212; C9803; G0463; U0003; U0005

== ENCOUNTER 2023-05-13 10:08 | Outpatient (CLI) | payer BC, SELFPAY ==
[2023-05-13 10:12] LABS: Microscopic, Urine URINE MICROSCOPIC (MICROSCOPIC)
[2023-05-13 10:57] LABS: Appearance,Urine CLEAR (Clear); Bilirubin,Urine Negative (Negative); Blood, Urine 2+ (Negative); Color,Urine YELLOW (Yellow); Glucose,Urine (UA) Negative (Negative); Ketones,Urine Negative (Negative); Leukocyte Esterase,Urine Negative (Negative); Nitrate,Urine Negative (Negative); Protein,Urine Negative (Negative); Urobilinogen,Urine 0.2 EU/dl (0.2)
[2023-05-13 11:02] LABS: Basophils # 0.1 K/mm3 (0-0.2); Basophils % 0.7 % (0.1-2.0); Eosinophils # 0.2 K/mm3 (0.0-0.4); Eosinophils % 1.4 % (0.1-12.0); Hematocrit 44.2 % (37.0-47.0); Lymphocytes # 2.7 K/mm3 (0.7-4.5); Lymphocytes % 25.7 % (10-50); Mean Corpuscular Hemoglobin 30.9 pg (27.0-31.2); Mean Platelet Volume 8.5 fl (7.4-10.4); Monocytes # 0.5 K/mm3 (0.1-1.0); Monocytes % 4.5 % (1.7-9.3); Neutrophils # 7.1 K/mm3 (1.8-7.8); Neutrophils % 67.8 % (37.0-80.0); Platelet Count 297 K/mm3 (142-424); Red Blood Count 4.86 M/mm3 (4.20-5.40); White Blood Count 10.5 K/mm3 (4.8-10.8)
[2023-05-13 11:07] LABS: Bacteria,Urine Trace /lpf; RBC,Urine Occasional #/hpf (0-3)
[2023-05-13 11:15] LABS: Hemoglobin A1C 5.3 % (4.0-6.0)
[2023-05-13 11:19] LABS: Chloride 99 mmol/L (98-107)
[2023-05-13 11:20] LABS: Potassium 3.3 mmoL/L (3.5-5.1); Sodium 139 mmol/L (136-145)
[2023-05-13 11:22] LABS: Alanine Aminotransferase 19 U/L (12-78); Albumin Level 4.3 g/dl (3.5-5.0); Albumin/Globulin Ratio 1.5 (1.1-1.8); Alkaline Phosphatase 78 U/L (38-126); Anion Gap 10.3 mEq/L (5-15); Aspartate Amino Transferase 25 U/L (14-36); Bilirubin,Total 0.5 mg/dl (0.2-1.3); Blood Urea Nitrogen 13 mg/dl (7-17); Carbon Dioxide 33 mmol/L (22.0-30.0); Estimated Glomerular Filt Rate 69 ml/min (>60); GFR (African American) 83 ML/MIN (>60); Globulin 2.8 g/dL (1.3-3.2); Total Protein,Serum 7.1 g/dl (6.3-8.2)
[2023-05-13 11:23] LABS: Calcium 9.2 mg/dl (8.4-10.2); Chol/HDL Ratio 6.3 (1-3.5); Cholesterol 222 mg/dl (140-200); Glucose 93 mg/dl (74-100); HDL Cholesterol 35 mg/dl (40-60); Magnesium 1.9 mg/dl (1.6-2.3); Triglycerides 184 mg/dl (30-150); VLDL Cholesterol 37 mg/dL (0-40)
[2023-05-13 11:35] LABS: Direct LDL Cholesterol 142.09 mg/dL (100-129)
[2023-05-13 11:40] LABS: Free T4 (Free Thyroxine) 1.07 ng/dl (0.78-2.19)
[2023-05-13 11:43] LABS: 25-OH Vitamin D, Total 45.4 ng/mL (30-100)
[2023-05-13 11:54] LABS: Thyroid Stimulating Hormone 1.55 uIU/mL (0.465-4.68)
[2023-05-13 13:20] LABS: Vitamin B12 450 pg/mL (239-931)
== END 2023-05-13 23:59 ==
LOC: LAB 10:09
PROVIDERS: PCP Nurse Practitioner Family; Visit Provider Nurse Practitioner Family
DX: R53.83 Other fatigue (principal); E78.5 Hyperlipidemia, unspecified; F41.9 Anxiety disorder, unspecified; I10 Essential (primary) hypertension; E83.42 Hypomagnesemia; E66.9 Obesity, unspecified; Z68.31 Body mass index [BMI] 31.0-31.9, adult; Z79.899 Other long term (current) drug therapy
CPT/HCPCS: 36415; 80053; 80061; 81001; 82306; 82607; 83036; 83735; 84439; 84443; 85025; 87086

== ENCOUNTER 2023-05-28 10:20 | Emergency (ER) | payer BC, SELFPAY ==
[2023-05-28 10:40] VITALS: BP 119/77; PULSE 64; RESP 18; TEMP 37; O2SAT 96; BMI 29.4
--- NOTE | 2023-05-28 10:42 | ED_ITS ---
Discharge Plan Disposition Patient Disposition: Home, Self-Care Condition: Good Prescriptions Prescriptions: New ondansetron 4 mg Tablet,Disintegrating 4 mg PO Q8H PRN (Reason: Nausea) Qty: 12 0RF No Action cyclobenzaprine 10 mg tablet 10 mg PO DAILY PRN benzoyl peroxide 10 % cleanser 1 applic topical DAILY eletriptan 40 mg tablet 40 mg PO BID PRN fluocinonide 0.05 % solution 1 applic topical DAILY ketoconazole 2 % shampoo 1 applic topical ONCE amlodipine 10 mg tablet 10 mg PO DAILY Qty: 90 3RF atorvastatin 10 mg tablet 10 mg PO DAILY Qty: 90 3RF bupropion HCl 150 mg tablet sustained-release 12 hr 150 mg PO BID Qty: 180 3RF Vraylar 1.5 mg capsule 1.5 mg PO DAILY Qty: 90 1RF fluoxetine [Prozac] 40 mg capsule 40 mg PO DAILY Qty: 90 3RF hydrochlorothiazide 25 mg tablet 25 mg PO DAILY Qty: 90 3RF trazodone 50 mg tablet 25 mg PO HS Qty: 45 3RF ondansetron 4 MG tablet,disintegrating 4 mg PO Q8HP PRN (Reason: Nausea) Qty: 20 0RF Referrals Follow up/Referrals: Cristela Ceja APRN [Primary Care Provider] - See instructions Activity Restrictions/Add. Instructions Additional Instructions/Restrictions: Drink plenty of fluids. Take tylenol or ibuprofen for pain or fever. Follow up with your regular doctor. GO TO THE ER FOR ANY WORSENING SYMPTOMS Clinical Impressions Clinical Impression: Acute viral syndrome, Exposure to 2019 novel coronavirus Instructions Patient Instructions: Coronavirus Disease 2019, Preventing the Spread of Coronavirus Discharge Instructions Discharge ED Provider: Delonte Fontenot [facility] General Stated complaint: Runny nose,wants covid test Time Seen by Provider: 05/28/23 10:42 History of Present Illness Provider Complaint: She states that for the past 2 days she has had fever/chills/body aches, cough and malaise. Related Data Home Medications Medication Instructions Recorded Confirmed benzoyl peroxide 10 % topical 1 applic topical DAILY 05/11/23 05/11/23 cleanser cyclobenzaprine 10 mg tablet 10 mg PO DAILY PRN 05/11/23 05/11/23 eletriptan 40 mg tablet 40 mg PO BID PRN 05/11/23 05/11/23 fluocinonide 0.05 % topical 1 applic topical DAILY 05/11/23 05/11/23 solution ketoconazole 2 % shampoo 1 applic topical ONCE 05/11/23 05/11/23 Previous Rx's Medication Instructions Recorded ondansetron 4 mg disintegrating 4 mg PO Q8HP PRN Nausea #20 tabs 11/28/21 tablet amlodipine 10 mg tablet 10 mg PO DAILY #90 tabs 05/24/23 atorvastatin 10 mg tablet 10 mg PO DAILY #90 tabs 05/24/23 bupropion HCl 150 mg tablet,12 hr 150 mg PO BID #180 ea 05/24/23 sustained-release cariprazine 1.5 mg capsule 1.5 mg PO DAILY #90 caps 05/24/23 (Vraylar) fluoxetine 40 mg capsule (Prozac) 40 mg PO DAILY #90 caps 05/24/23 hydrochlorothiazide 25 mg tablet 25 mg PO DAILY #90 tabs 05/24/23 trazodone 50 mg tablet 25 mg PO HS #45 tabs 05/24/23 ondansetron 4 mg disintegrating 4 mg PO Q8H PRN Nausea #12 tabs 05/28/23 tablet Allergies Allergy/AdvReac Type Severity Reaction Status Date / Time No Known Allergies Allergy Verified 05/28/23 11:05 [facility] Disclaimer: The information contained in this section may have been updated after the patient was seen, as this information can be updated by other users. Medical History Anxiety Bronchitis Contact dermatitis COVID-19 Encounter for laboratory testing for COVID-19 virus Exposure to COVID-19 virus Hyperlipidemia Hypertension Hypomagnesemia Laceration Ocular migraine Upper respiratory infection, viral Viral syndrome Surgical History Hx of section Family History Father Diabetes Hypertension Mother Hypertension Social History Smoking Status: Current every day smoker tobacco type: cigarettes packs per day: 1 alcohol intake: never substance use type: denies use current occupational status: employed Travel in the last 8 weeks: Inside the [place] household members: children caffeine: Yes ROS Obtained: Yes All systems reviewed & no additional complaints except as documented Constitutional Constitutional: Reports chills and Reports fever(s) Eyes Eyes: Denies eye discharge ENT Ears, Nose, Mouth, and Throat: Reports as per HPI Cardiovascular Cardiovascular: Denies chest pain Respiratory Respiratory: Denies chest congestion and Reports cough Gastrointestinal Gastrointestingal: Reports nausea; Denies abdominal pain, constipation, cramping, diarrhea or vomiting Musculoskeletal Musculoskeletal: Denies arthralgias Integumentary/Breasts Skin/Breast: Denies rash Neurologic Neurologic: Denies paresthesias Physical Exam General General appearance: alert and in no apparent distress Head Head exam: atraumatic, normocephalic and normal inspection Eye Eye exam: Present normal appearance, PERRL and EOMI ENT ENT exam: Present normal exam, normal oropharynx, mucous membranes moist, TM's normal bilaterally and normal external ear exam Neck Neck exam: Present normal inspection, full ROM and trachea midline; Absent meningismus or lymphadenopathy Chest Chest inspection: Present normal inspection and symmetric chest wall rise; Absent tenderness Respiratory Respiratory exam: Present normal lung sounds bilaterally; Absent respiratory distress Cardiovascular Cardiovascular exam: Present regular rate and normal rhythm; Absent JVD Abdominal Exam Abdominal exam: Present soft and normal bowel sounds; Absent distention, tenderness or guarding Extremities Exam Extremities exam: Present normal inspection, full ROM and normal capillary refill; Absent calf tenderness Back Exam Back exam: Present normal inspection; Absent tenderness Neurological Exam Neurological exam: Present alert and oriented X3 Psychiatric Psychiatric exam: Present normal affect and normal mood Skin Skin exam: Present warm, dry, intact and normal color Lymphatic Lymphatic Findings: no adenopathy Medical Decision Making Medical Records Medical records reviewed: No I reviewed the patient's medical records. [place] Inquiry Pt receiving controlled substance: No Lab Data Lab results reviewed: Yes I reviewed the patient's lab results. Orders (Tests/Meds): ORDERS Category Date Time Status Covid-19 Nasal PCR ([facility]) Routine Lab 05/28/23 10:41 Ordered
[2023-05-28 11:06] VITALS: BP 119/77; PULSE 64; RESP 18; TEMP 37; O2SAT 96
== END 2023-05-28 11:06 | disposition home or self-care (01) ==
PROVIDERS: Emergency Provider Nurse Practitioner Family; PCP Nurse Practitioner Family
DX: R05.9 Cough, unspecified (principal); R09.81 Nasal congestion; R50.9 Fever, unspecified; M79.18 Myalgia, other site; R53.81 Other malaise; B34.9 Viral infection, unspecified; Z20.822 Contact with and (suspected) exposure to COVID-19; F17.210 Nicotine dependence, cigarettes, uncomplicated; I10 Essential (primary) hypertension; E78.5 Hyperlipidemia, unspecified
CPT/HCPCS: 87635; 99212; 99214; G0463

== ENCOUNTER 2023-11-16 19:09 | Outpatient (CLI) | payer BC, SELFPAY ==
[2023-11-16 20:26] LABS: Chol/HDL Ratio 6.5 (1-3.5); Cholesterol 241 mg/dl (140-200); HDL Cholesterol 37 mg/dl (40-60); Triglycerides 129 mg/dl (30-150); VLDL Cholesterol 26 mg/dL (0-40)
[2023-11-16 20:37] LABS: Direct LDL Cholesterol 175.68 mg/dL (100-129)
== END 2023-11-16 23:59 | disposition home or self-care (01) ==
LOC: LAB.DROPOF 19:10
PROVIDERS: PCP Nurse Practitioner Family; Visit Provider Nurse Practitioner Family
DX: E78.5 Hyperlipidemia, unspecified (principal)
CPT/HCPCS: 80061

== ENCOUNTER 2024-07-02 15:28 | Outpatient (CLI) | payer BC, SELFPAY ==
[2024-07-02 13:33] LABS: Coronavirus 19, PCR Not Detected (NotDetected); Human Rhinovirus Not Detected (NotDetected); Influenza A, PCR Not Detected (NotDetected); Influenza B, PCR Not Detected (NotDetected); Respiratory Syncytial Virus Not Detected (NotDetected)
== END 2024-07-02 23:59 | disposition home or self-care (01) ==
LOC: LAB.DROPOF 15:28
PROVIDERS: PCP Nurse Practitioner Family; Visit Provider Nurse Practitioner Family
DX: J06.9 Acute upper respiratory infection, unspecified (principal)
CPT/HCPCS: 87631

== ENCOUNTER 2024-11-11 11:59 | Outpatient (CLI) | payer BC, SELFPAY ==
[2024-11-11 16:36] LABS: Hematocrit 47.3 % (37.0-47.0); Hemoglobin 15.7 g/dL (12.2-16.2); Immature Granulocytes % 0.6 %; Mean Corpuscular HGB Conc 33.2 g/dL (31.8-35.4); Mean Corpuscular Hemoglobin 29.2 pg (27.0-31.2); Mean Corpuscular Volume 88.1 fl (81-99); Nucleated Red Blood Cells % 0 %; Platelet Count 287 K/mm3 (142-424); Red Blood Count 5.37 M/mm3 (4.20-5.40); Red Cell Distribution Width-SD 43.0 fL; White Blood Count 12.1 K/mm3 (4.8-10.8)
[2024-11-11 17:05] LABS: Alanine Aminotransferase 14 U/L (12-78); Albumin Level 5.0 g/dl (3.5-5.0); Albumin/Globulin Ratio 1.6 (1.1-1.8); Alkaline Phosphatase 86 U/L (38-126); Anion Gap 19.3 mEq/L (5-15); Aspartate Amino Transferase 20 U/L (14-36); Bilirubin,Total 0.7 mg/dl (0.2-1.3); Blood Urea Nitrogen 11 mg/dl (7-17); Calcium 10.5 mg/dl (8.4-10.2); Carbon Dioxide 28 mmol/L (22.0-30.0); Chloride 94 mmol/L (98-107); Cholesterol 225 mg/dl (140-200); Creatinine,Serum 1.00 mg/dl (0.52-1.04); Estimated Glomerular Filt Rate 61 ml/min (>60); GFR (African American) 73 ML/MIN (>60); Globulin 3.1 g/dL (1.3-3.2); Glucose 105 mg/dl (74-100); HDL Cholesterol 39 mg/dl (40-60); Potassium 3.3 mmoL/L (3.5-5.1); Sodium 138 mmol/L (136-145); Total Protein,Serum 8.1 g/dl (6.3-8.2); Triglycerides 202 mg/dl (30-150)
[2024-11-11 17:22] LABS: 25-OH Vitamin D, Total 48.3 ng/mL (30-100); Free T4 (Free Thyroxine) 1.09 ng/dl (0.78-2.19)
[2024-11-11 17:36] LABS: Thyroid Stimulating Hormone 1.61 uIU/mL (0.465-4.68)
[2024-11-11 17:50] LABS: Iron 94 ug/dL (37-170)
[2024-11-11 17:55] LABS: Vitamin B12 317 pg/mL (239-931)
[2024-11-11 17:59] LABS: Total Iron Binding Capacity 366 ug/dL (265-497)
[2024-11-11 18:22] LABS: Hepatitis C Ab Qual. W/ RFX NEGATIVE (Negative)
[2024-11-11 20:32] LABS: Hemoglobin A1C 6.8 % (4.0-6.0)
[2024-11-11 21:55] LABS: Ferritin 41.5 ng/ml (6.24-137)
== END 2024-11-11 23:59 | disposition home or self-care (01) ==
LOC: LAB.DROPOF 11-12 12:31
PROVIDERS: PCP Nurse Practitioner Family; Visit Provider Nurse Practitioner Family
DX: E78.5 Hyperlipidemia, unspecified (principal); I10 Essential (primary) hypertension; R53.83 Other fatigue; Z11.4 Encounter for screening for human immunodeficiency virus [HIV]; Z11.59 Encounter for screening for other viral diseases; Z13.1 Encounter for screening for diabetes mellitus
CPT/HCPCS: 80053; 80061; 80074; 82306; 82607; 82728; 83036; 83540; 83550; 84439; 84443; 85025; 87389

== ENCOUNTER 2024-11-14 11:45 | Outpatient (CLI) | payer BC, SELFPAY ==
--- OUTSIDE RECORDS SUMMARY | 2024-10-11 08:22 | XMS_ITS | Encounter Summary ---
Author Organization [facility] Address [address] [place] [address] Care Team Providers Care [place] Name Role Phone Cristela Ceja APRN Primary Care Provider [phone] Reason for Referral * MRI/CAT/PET Scan (Routine) - Closed Specialty Diagnoses / Procedures Referred By Saumya huizar Referred To Contact Radiology Diagnoses At high risk for breast cancer Procedures MRI Breast Bilateral Screening With & Without Contrast CHG MRI BREAST WITHOUT&WITH CONTRAST W/CAD BILATERAL Rita Araya APRN [address] [facility] [address] [place] [address] Phone: tel: fax: [address] [address] Phone: tel: Referral ID Status Reason Start Date Expiration Date Visits Re quested Visits Authorized [id number] Closed 08/30/2024 11/29/2025 1 1 Reason for Visit * MRI/CAT/PET Scan (Routine) - Closed Specialty Diagnoses / Procedures [facility] Referred To Contact Radiology Diagnoses At high risk for breast cancer Procedures MRI Breast Bilateral Screening With & Without Contrast CHG MRI BREAST WITHOUT&WITH CONTRAST W/CAD BILATERAL Rita Araya APRN [address] [facility] [address] [place] [address] Phone: tel: fax: [place] [address] [address] [place] [address] Phone: tel: Referral ID Status Reason Start Date Expiration Date Visits Re quested Visits Authorized [id number] Closed 08/30/2024 11/29/2025 1 1 Encounter Details Date Type Department Care Team (Latest Contact Info) Description 10/11/2024 8:22 AM EDT - 10/11/2024 11:59 PM EDT Hospital Encounter [facility] MRI AT [facility] [address] [place] [phone] Rita Araya, 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 [address] [facility] [address] [place] [address] At high risk for breast [...] Description 03/13/2025 11:15 AM EST Office Visit [facility] [address] [facility] [address] [place] [phone] Alexey Lee MD [address] [facility] [address] [place] [phone] 04/21/2025 10:20 AM EST Appointment [facility] [address] [place] [phone] 08/29/2025 9:30 AM EDT Office Visit [address] [phone] Rita Araya APRN [address] [facility] [address] [place] [address] documented as of this encounter Procedures Procedure [...] images were also obtained. A CAD system (SERPs) was utilized for data analysis. This examination [...] image 174, sagittal image 51 and the Gozent software is a focal asymmetry that may [...] axillary adenopathy is appreciated. us Rita Araya 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 IMG MRI ORDERABLES Final R esult documented [...] mL documented in this encounter Care Teams [place] Relationship Specialty Start Date End Date Cristela Ceja APRN [address] [place] [address] [place] [address] PCP - General Nurse Practitioner 05/19/23 documented as of this encounter
--- OUTSIDE RECORDS SUMMARY | 2024-11-08 08:06 | XMS_ITS | Encounter Summary ---
Author Organization [facility] Address [address] [place] [address] Care Team Providers Care Refrigeration Engineering Teacher Name Role Phone Cristela Ceja APRN Primary Care Provider [phone] Reason for Referral * Diagnostic Imaging (Routine) - Closed Specialty Diagnoses / Procedures Referred By Saumya huizar Referred To Contact Radiology Diagnoses Breast cancer screening, high risk patient Abnormal magnetic resonance imaging of breast Procedures Mammo Diagnostic Digital Tomosynthesis Left With CAD Rita Araya APRN [address] [facility] [address] [place] [address] Phone: tel: fax: Referral ID Status Reason [...] Left With CAD Rita Araya APRN [address] [facility] [address] [place] [address] Phone: tel: fax: Referral ID Status Reason Start Date Expiration Date Visits Re quested Visits Authorized Closed 10/15/2024 01/14/2026 1 1 Encounter Details Date Type Department Care Team (Latest Contact Info) Description 11/08/2024 8:06 AM EDT - 11/08/2024 11:59 PM EDT Hospital Encounter [facility] [address] [place] [address] Breast cancer screening, high risk patient; Abnormal [...] Description 03/13/2025 11:15 AM EST Office Visit [facility] [address] [facility] [address] [place] [address] Alexey Lee MD [address] [facility] [address] [place] [address] 04/21/2025 10:20 AM EST Appointment [facility] [address] [place] [phone] 08/29/2025 9:30 AM EDT Office Visit [facility] [address] [facility] [address] [place] [phone] Rita Araya APRN [address] [facility] [address] [place] [address] documented as of this encounter Procedures Procedure [...] breast documented in this encounter Care Teams Refrigeration Engineering Teacher Relationship Specialty Start Date End Date Marcial JESSY Archibald [address] [place] [address] PCP - General Nurse Practitioner 05/19/23 documented as of this encounter
--- OUTSIDE RECORDS SUMMARY | 2024-11-08 08:07 | XMS_ITS | Encounter Summary ---
Author Organization [facility] Address [address] [place] [address] Care Team Providers Care Instrumental Music Teacher Name Role Phone Cristela Ceja APRN Primary Care Provider [phone] Reason for Referral * Diagnostic Imaging (Routine) - Closed Specialty Diagnoses / Procedures Referred By Saumya huizar Referred To Contact Radiology Diagnoses Breast cancer screening, high risk patient Abnormal magnetic resonance imaging of breast Procedures US Guided Breast Biopsy With & Without Device initial Rita Araya APRN [address] [facility] [address] [place] [address] Phone: tel: fax: Referral ID Status Reason Start Date Expiration Date Visits Re quested Visits Authorized Closed 10/15/2024 01/14/2026 1 1 Reason for Visit * Diagnostic Imaging (Routine) - Closed Specialty Diagnoses / Procedures [facility] Referred To Contact Radiology Diagnoses Breast cancer screening, high risk patient Abnormal magnetic resonance imaging of breast Procedures US Guided Breast Biopsy With & Without Device initial Rita Araya APRN [address] [facility] [address] [place] [address] Phone: tel: fax: Referral ID Status Reason Start Date Expiration Date Visits Re quested Visits Authorized [id number] Closed 10/15/2024 01/14/2026 1 1 Encounter Details Date Type Department Care Team (Latest Contact Info) Description 11/08/2024 8:07 AM EDT - 11/08/2024 11:59 PM EDT Hospital Encounter [facility] [address] [place] [address] Breast cancer screening, high risk [...] Visit [facility]UR[facility] [address] [facility] [address] [place] [phone] Alexey Lee MD [address] [facility] [address] [place] [address] 04/21/2025 10:20 AM EST Appointment [facility] [address] [place] [phone] 08/29/2025 9:30 AM EDT Office Visit [facility] [address] [facility] [address] [place] [phone] Rita Araya APRN [address] [facility] [address] [place] [address] Pending Results Name Type Priority Associated Diagnoses Date /Time US Guided Breast Biopsy With & Without Device initial Imaging Routine Breast cancer screening, high risk patient Abnormal magnetic resonance imaging of breast 11/08/2024 11:02 AM EDT Scheduled Orders Name Type Priority Associated Diagnoses Orde r Schedule US Guided Breast Biopsy With & Without Device initial Imaging Routine Breast cancer screening, high risk patient Abnormal magnetic resonance imaging of breast Once for 1 Occurrences starting 11/08/2024 until 11/08/2024 documented as of this encounter Procedures Procedure Name Priority Date/Time Associated Diagnosis Comments TISSUE PATHOLOGY EXAM Routine 11/08/2024 10:35 AM EDT documented in this encounter Results * Tissue Pathology Exam (11/08/2024 10:35 AM EDT) Case Report Surgical Pathology Report Case: [id number] Authorizing Provider: Lucina Ramirez MD Collected: 11/08/2024 10:35 AM Ordering Location: [facility] Received: 11/08/2024 12:08 PM [facility] [address] Pathologist: Pedro Wray MD Specimen: Breast, Left, Left breast 6:00 9mm mass 11/11/2024 10:25 AM EDT [facility] Clinical Information Breast 6:00 9 mm mass 11/11/2024 10:25 AM EDT [facility] Final Diagnosis LEFT BREAST, 6:00, BIOPSY: 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 11/11/2024 10:25 AM EDT [facility] Gross Description 1. Breast, [...] 72 hours. HDM 11/11/2024 10:25 AM EDT [facility] Microscopic Description The slides are reviewed and demonstrate histopathologic features supporting the above rendered diagnosis. 11/11/2024 10:25 AM EDT [facility] Tissue Left breast structure / Unknown Collection / Unknown 11/08/2024 10:35 AM EDT 11/08/2024 12:08 PM EDT us Lucina Ramirez MD PATHOLOGY/CYTOLOGY ORDERABL ES Final Result [facility]
[address] [place] [address], documented in this encounter Visit Diagnoses Diagnosis [...] EDT 1 mL lidocaine 1% - EPINEPHrine 1:327847 (XYLOCAINE W/EPI) 1 %-1:054798 injection 10 mL 10 mL, Injection, Once, On Mon11/08/24 at 0941, For 1 dose Given 11/08/2024 10:30 AM EDT 1 mL documented in this encounter Care Teams Instrumental Music Teacher Relationship Specialty Start Date End Date Cristela Ceja APRN [address] [place] [address] PCP - General Nurse Practitioner 05/19/23 documented as of this encounter
--- OUTSIDE RECORDS SUMMARY | 2024-11-08 09:37 | XMS_ITS | Encounter Summary ---
Author Organization [facility] Address [address] [place] [address] Care Team Providers Care Gusset Edger Name Role Phone Cristela Ceja APRN Primary Care Provider [phone] Reason for Referral * Diagnostic Imaging (Routine) - Pending Review Specialty Diagnoses / Procedures Referred By [facility] Referred To Contact Radiology Diagnoses Breast cancer screening, high risk patient Abnormal magnetic resonance imaging of breast Procedures US Guided Breast Biopsy With & Without Device Each Additional Rita Araya APRN [address] [facility] [address] [place] [address] Phone: tel: fax: Referral ID Status Reason Start Date Expiration Date V isits Requested Visits Authorized Pending Review 11/08/2024 02/07/2026 1 1 Reason for Visit * Diagnostic Imaging (Routine) - Pending Review Specialty Diagnoses / Procedures Referred By [facility] Referred To Contact Radiology Diagnoses Breast cancer screening, high risk patient Abnormal magnetic resonance imaging of breast Procedures US Guided Breast Biopsy With & Without Device Each Additional Rita Araya APRN [address] [facility] [address] [place] [address] Phone: tel: fax: Referral ID Status Reason Start Date Expiration Date V isits Requested Visits Authorized Pending Review 11/08/2024 02/07/2026 1 1 Encounter Details Date Type Department Care Team (Latest Contact Info) Description 11/08/2024 9:37 AM EDT - 11/08/2024 11:59 PM EDT Hospital Encounter [facility] [address] [place] [address] Breast cancer screening, high risk [...] mouth Daily. documented as of this encounter Progress Notes * Gina Mills RN - 11/08/2024 9:40 AM EDT Alert and oriented. Denies discomfort, no active bleeding, steri-strips not visualized, gauze dressing intact. Cold packs given. Questions answered, support given. Verbalizes and demonstrates understanding of post-care instructions, written copy given. documented in this encounter Plan of Treatment Upcoming Encounters Date Type Department Care Team (Late st Contact Info) Description 03/13/2025 11:15 AM EST Office Visit [facility] [address] [facility] [address] [place] [phone] Alexey Lee MD [address] [facility] [address] [place] [address] 04/21/2025 10:20 AM EST Appointment [facility] [address] [place] [phone] 08/29/2025 9:30 AM EDT Office Visit [address] [phone] Rita Araya APRN [address] [facility] [address] [place] [address] Pending Results Name Type Priority Associated Diagnoses Date /Time US Guided Breast Biopsy With & Without Device Each Additional Imaging Routine Breast cancer screening, high risk patient Abnormal magnetic resonance imaging of breast 11/08/2024 11:05 AM EDT Scheduled Orders Name Type Priority Associated Diagnoses Orde r Schedule US Guided Breast Biopsy With & Without Device Each Additional Imaging Routine Breast cancer screening, high risk patient Abnormal magnetic resonance imaging of breast Once for 1 Occurrences starting 11/08/2024 until 11/08/2024 documented as of this encounter Procedures Procedure Name Priority Date/Time Associated Diagnosis Comments TISSUE PATHOLOGY EXAM Routine 11/08/2024 10:43 AM EDT documented in this encounter Results * Tissue Pathology Exam (11/08/2024 10:43 AM EDT) Case Report Surgical Pathology Report Case: [id number] Authorizing Provider: Lucina Ramirez MD Collected: 11/08/2024 10:43 AM Ordering Location: [facility] Received: 11/08/2024 12:09 PM [facility] [address] Pathologist: Pedro Wray MD Specimen: Breast, Left, Left breast 11:00 7mm mass 11/11/2024 10:25 AM EDT [facility] Clinical Information Breast cancer screening, high risk patient, abnormal MRI, left breast 11:00 7 mm mass 11/11/2024 10:25 AM EDT [facility] Final Diagnosis LEFT BREAST, 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 11/11/2024 10:25 AM EDT [facility] Gross Description 1. Breast, Left. Received in formalin labeled left breast 11:00 ultrasound biopsy is a 1 x 1 x 0.3 cm aggregate of yellow-pink fibrofatty breast tissue fragments placed in formalin at 1043 on 11/08/2024, now submitted in block 1A. The cold ischemic time is less than 60 minutes, total time in formalin is greater than 6 and less than 72 hours. HDM 11/11/2024 10:25 AM EDT [facility] Microscopic Description The slides are reviewed and demonstrate histopathologic features supporting the above rendered diagnosis. 11/11/2024 10:25 AM EDT [facility] Tissue Left breast structure / Unknown Collection / Unknown 11/08/2024 10:43 AM EDT 11/08/2024 12:09 PM EDT us Lucina Ramirez MD PATHOLOGY/CYTOLOGY ORDERABL ES Final Result [facility]
[address] [place] [address], documented in this encounter Visit Diagnoses Diagnosis Breast cancer screening, high risk patient Screening mammogram for high-risk patient Abnormal magnetic resonance imaging of breast documented in this encounter Administered Medications Inactive Administered Medications - up to 3 most recent administrations Medication Order MAR Action Action Date Dose Rate Site lidocaine (XYLOCAINE) 1 % injection 5 mL 5 mL, Injection, Once, On Mon11/08/24 at 0943, For 1 dose Given 11/08/2024 10:37 AM EDT 1 mL lidocaine 1% - EPINEPHrine 1:873435 (XYLOCAINE W/EPI) 1 %-1:724582 injection 10 mL 10 mL, Injection, Once, On Mon11/08/24 at 0943, For 1 dose Given 11/08/2024 10:38 AM EDT 1 mL documented in this encounter Care Teams Gusset Edger Relationship Specialty Start Date End Date Cristela Ceja APRN [address] [place] [address] PCP - General Nurse Practitioner 05/19/23 documented as of this encounter
--- OUTSIDE RECORDS SUMMARY | 2024-11-08 09:42 | XMS_ITS | Encounter Summary ---
Author Organization [facility] Address [address] [place] [address] Care Team Providers Care Clinical Data Coordinator Name Role Phone Cristela Ceja APRN Primary Care Provider [phone] Reason for Referral * Diagnostic Imaging (Routine) - Pending Review Specialty Diagnoses / Procedures Referred By Contac t Referred To Contact Radiology Diagnoses Breast cancer screening, high risk patient Abnormal magnetic resonance imaging of breast Procedures Mammo Post Device Placement Left Rita Araya APRN [address] [facility] [address] [place] [address] Phone: tel: fax: Referral ID Status Reason Start Date Expiration Date V isits Requested Visits Authorized [id number] Pending Review 11/08/2024 02/07/2026 1 1 Reason for Visit * Diagnostic Imaging (Routine) - Pending Review Specialty Diagnoses / Procedures Referred By Contandrew t Referred To Contact Radiology Diagnoses Breast cancer screening, high risk patient Abnormal magnetic resonance imaging of breast Procedures Mammo Post Device Placement Left Rita Araya APRN [address] [facility] [address] [place] [address] Phone: tel: fax: Referral ID Status Reason Start Date Expiration Date V isits Requested Visits Authorized Pending Review 11/08/2024 02/07/2026 1 1 Encounter Details Date Type Department Care Team (Latest Contact Info) Description 11/08/2024 9:42 AM EDT - 11/08/2024 11:59 PM EDT Hospital Encounter [facility] [address] [place] [address] Breast cancer screening, high risk patient; Abnormal [...] Visit [facility] [address] [facility] [address] [place] [address] Alexey Lee MD [address] [facility] [address] [place] [address] 04/21/2025 10:20 AM EST Appointment [facility] [address] [place] [phone] 08/29/2025 9:30 AM EDT Office Visit [facility] [address] [facility] [address] [place] [address] Rita Araya APRN [address] [facility] [address] [place] [address] Pending Results Name Type Priority Associated Diagnoses Date /Time Mammo Post Device Placement Left Imaging Routine Breast cancer screening, high risk patient Abnormal magnetic resonance imaging of breast 11/08/2024 11:05 AM EDT Scheduled Orders Name Type Priority Associated Diagnoses Orde r Schedule Mammo Post Device Placement Left Imaging Routine Breast cancer screening, high risk patient Abnormal magnetic resonance imaging of breast Once for 1 Occurrences starting 11/08/2024 until 11/08/2024 documented as of this encounter Visit Diagnoses Diagnosis Breast cancer screening, high risk patient Screening mammogram for high-risk patient Abnormal magnetic resonance imaging of breast documented in this encounter Care Teams Clinical Data Coordinator Relationship Specialty Start Date End Date Cristela Ceja APRN [address] [place] [address] PCP - General Nurse Practitioner 05/19/23 documented as of this encounter
[2024-11-14 13:07] LABS: Microscopic, Urine URINE MICROSCOPIC (MICROSCOPIC)
[2024-11-14 13:26] LABS: Bilirubin,Urine Negative (Negative); Color,Urine YELLOW (Yellow); Glucose,Urine (UA) Negative (Negative); Ketones,Urine Negative (Negative); Leukocyte Esterase,Urine Negative (Negative); PH,Urine 7.0 (5.0-8.5); Protein,Urine Negative (Negative); Specific Gravity, Urine 1.010 (1.005-1.030); Urobilinogen,Urine 0.2 EU/dl (0.2)
[2024-11-14 13:28] LABS: Bacteria,Urine Trace /lpf; RBC,Urine Occasional #/hpf (0-3)
--- OUTSIDE RECORDS SUMMARY | 2024-11-18 09:27 | XMS_ITS | Encounter Summary ---
Author Organization [facility] Address [address] [place] [address] Care Team Providers Care Sleeve Turner Name Role Phone Marcial Cristela JESSY Primary Care Provider Encounter Details Date Type Department Care Team (Late st Contact Info) Description 11/11/2024 Telephone [place] [id number] Gina Mills RN Social History Tobacco Use Types Packs/Day Years [...] on file documented as of this encounter Miscellaneous Notes * Telephone Encounter - Gina Mills RN - 11/11/2024 10:35 AM EDT Patient notified of pathology results. Patient notified report has not been made available by radiologist; notified the radiologist will review the results before making a final decision about a recommendation. Patient is aware she will be notified if recommendation is other than return in 6 monthsfor ultrasound and MRI. Verbalizes understanding. Denies discomfort. Denies any signs and symptoms of infection. Questions answered, support given, verbalized understanding. documented in this encounter Plan of Treatment Upcoming Encounters Date Type Department Care Team (Late st Contact Info) Description 03/13/2025 11:15 AM EST Office Visit [facility] [address] [facility] [address] [place] [address] Alexey Lee MD [address] [facility] [address] [place] [address] 04/21/2025 10:20 AM EST Appointment [facility] [place] [address] 08/29/2025 9:30 AM EDT Office Visit [facility] [address] [facility] [address] [place] [phone] Rita Araya APRN [address] [facility] [address] [place] [address] documented as of this encounter Visit Diagnoses Not on filedocumented in this encounter Care Teams Sleeve Turner Relationship Specialty Start Date End Date Cristela Ceja APRN [address] [place] [address] PCP - General Nurse Practitioner 05/19/23 documented as of this encounter
--- OUTSIDE RECORDS SUMMARY | 2024-11-18 09:27 | XMS_ITS | Clinical Summary ---
Author Organization [facility] Address [address] [place] [address] Care Team Providers Care Bit Sander Name Role Phone Cristela Ceja APRN Primary Care Provider Allergies No known active allergies Medications FLUoxetine (PROzac) 40 MG capsule Take 1 capsule by mouth Daily. 1 Active amLODIPine (NORVASC) 10 MG tablet Take 1 tablet by mouth Daily. 2 Active hydroCHLOROthiazid e 25 MG tablet Take 1 tablet by mouth Every Morning. 2 Active atorvastatin (LIPITOR) 40 MG tablet Take 1 tablet by mouth Daily. Active traZODone (DESYREL) 50 MG tablet Take 0.5 tablets by mouth Every Night. Active promethazine (PHENERGAN) 12.5 MG tablet Take by mouth As Needed. 3 Active ondansetron ODT (ZOFRAN-ODT) 4 MG disintegrating tablet Take by mouth As Needed. 3 Active Vraylar 1.5 MG capsule capsule Take 1 capsule by mouth Daily. Active buPROPion XL (Wellbutrin XL) 300 MG 24 hr tablet Take 1 tablet by mouth Daily. Active FIBER PO Take by mouth Daily. Active melatonin 5 MG tablet tablet Take 1 tablet by mouth Every Night. Active eletriptan (RELPAX) 40 MG tablet Take 1 tablet by mouth 1 (One) Time As Needed for Migraine. may repeat in 2 hours if necessary Active Hospital, Clinic, or Other Facility Administered Medication Ordered Dose Route Frequency Start Date End Date Status lidocaine (XYLOCAINE) 1 % injection 5 mL 5 mL IJ Once 11/08/2024 11/08/2024 Ended lidocaine 1% - EPINEPHrine 1:630756 (XYLOCAINE W/EPI) 1 %-1:724999 injection 10 mL 10 mL IJ Once 11/08/2024 11/08/2024 Ended lidocaine (XYLOCAINE) 1 % injection 5 mL 5 mL IJ Once 11/08/2024 11/08/2024 Ended lidocaine 1% - EPINEPHrine 1:696093 (XYLOCAINE W/EPI) 1 %-1:184862 injection 10 mL 10 mL IJ Once 11/08/2024 11/08/2024 Ended Active Problems Problem Noted Date Diagnosed Date At high risk for breast cancer 08/30/2024 Encounters Date Type Department Care Team Description 11/11/2024 Telephone [facility] [address] [address] Gina Mills RN 11/08/2024 9:42 AM EDT - 11/08/2024 11:59 PM EDT Hospital Encounter [facility] [address] [address] Breast cancer screening, high risk patient; Abnormal magnetic resonance imaging of breast Discharge Disposition: Home or Self Care 11/08/2024 9:37 AM EDT - 11/08/2024 11:59 PM EDT Hospital Encounter [facility] 1760 [facility] [address] [address] Breast cancer screening, high risk patient; Abnormal magnetic resonance imaging of breast Discharge Disposition: Home or Self Care 11/08/2024 8:07 AM EDT - 11/08/2024 11:59 PM EDT Hospital Encounter [facility] 17[address] [facility] [address] [address] Breast cancer screening, high risk patient; Abnormal magnetic resonance imaging of breast Discharge Disposition: Home or Self Care 11/08/2024 8:06 AM EDT - 11/08/2024 11:59 PM EDT Hospital Encounter [facility] [address] [address] Breast cancer screening, high risk patient; Abnormal magnetic resonance imaging of breast Discharge Disposition: Home or Self Care 11/08/2024 Travel 10/15/2024 Telephone [facility] MRI AT [address] [address] Stephanie Serna 10/11/2024 8:22 AM EDT - 10/11/2024 11:59 PM EDT Hospital Encounter [facility] MRI AT [address] [address] Rita Araya APRN At high risk for breast cancer Discharge Disposition: Home or Self Care 10/11/2024 Travel 09/12/2024 Patient [place] [place] [facility] [address] [facility] [address] [place] [address] Roshni Stokes 09/09/2024 10:30 AM EDT Office Visit [facility] [address] [facility] [address] [place] [address] Alexey Lee MD II (idiopathic intracranial hypertension) (Primary Dx); Migraine without aura and without status migrainosus, not intractable 09/09/2024 Travel 08/30/2024 10:00 AM EDT Office Visit [facility] [address] [facility] [address] [place] [id number] Rita Araya APRN At high risk for breast cancer (Primary Dx) 08/30/2024 Travel from Last 3 Months Family History Medical History Relation Name Comments Migraines Daughter Tonsil cancer Father Breast cancer Maternal Aunt 1 Vulva cancer Maternal Aunt 2 Lung cancer Maternal Uncle Skin cancer Mother Thyroid cancer Mother Breast cancer Paternal Aunt Alzheimer's disease Paternal Grandmother Colon cancer Paternal Grandmother Breast cancer Sister Ovarian cancer Neg Hx Uterine cancer Neg Hx Relation Name Status Comments Daughter Alive Father Alive Maternal Aunt 1 Maternal Aunt 2 Alive Maternal Uncle Mother Alive Paternal Aunt Alive Paternal Grandmother Sister Alive age 39 Social History Tobacco Use Types Packs/Day Years Used Date Smoking Tobacco: Every Day Cigarettes 0.5 27 Passive Smoke Exposure: Past Smokeless Tobacco: Never Tobacco Cessation:Ready to Q uit: Not Asked; Counseling Given: Not Answered Comments:1.5 ppd Alcohol Use Standard Drinks/Week Comments [...] on file Sexual Orientation Not on file Last Filed Vital Signs Vital Sign Reading Time Taken Comments Blood Pressure 112/74 09/09/2024 10:45 AM EDT Pulse 58 09/09/2024 10:45 AM EDT Temperature 36.4 C (97.6 F) 08/30/2024 9:54 AM EDT Respiratory Rate 16 08/30/2024 9:54 AM EDT Oxygen Saturation 97% 09/09/2024 10:45 AM EDT Inhaled Oxygen Concentration - - Weight 79.4 kg (175 lb) 10/11/2024 9:14 AM EDT Height 154.9 cm (5' 1 ) 10/11/2024 9:14 AM EDT Body Mass Index 33.07 10/11/2024 9:14 AM EDT Plan of Treatment Upcoming Encounters Date Type Department Care Team (Late st Contact Info) Description 03/13/2025 11:15 AM EST Office Visit [facility] [address] [facility] [address] [place] [address] Alexey Lee MD [address] [facility] [address] [place] [address] 04/21/2025 10:20 AM EST Appointment [place] [address] [place] [address] 08/29/2025 9:30 AM EDT Office Visit [facility] [address] [facility] [address] [place] [address] Rita Araya APRN [address] [facility] [address] [place] [address] Health Maintenance Due Date Last Done Comments Pneumococcal Vaccine 0-49 (1 of 2 - PCV) 2000 ANNUAL PHYSICAL 02/02/2021 HEPATITIS C SCREENING 02/02/2021 Annual Gynecologic Pelvic an d Breast Exam 06/26/2022 06/25/2021, 02/02/2021 PAP SMEAR 08/10/2023 08/09/2022, 12/31, 06/25/2021, Additional history exists COVID-19 Vaccine (3 - 2023-2 5 season) 2023 03/29/2021, 02/25/2021 INFLUENZA VACCINE 01/29/2025 Annual Breast MRI 10/11/2025 10/11/2024 MAMMOGRAM TCS >= 20 11/08/2025 11/08/2024, 04/11/2024, 07/10/2023, Additional history exists TDAP/TD VACCINES (3 - Td or Tdap) 02/08/2029 019, 11/17/2017 COLONOSCOPY 02/01/2031 02/01/2021 COLORECTAL CANCER SCREENING 02/01/2031 MAMMOGRAM Discontinued 11/08/2024, 03/31, 07/10/2023, Additional history exists Procedures Procedure Name Priority Date/Time Associated Diagnosis Comments TISSUE PATHOLOGY EXAM Routine 11/08/2024 10:43 AM EDT TISSUE PATHOLOGY EXAM Routine 11/08/2024 10:35 AM EDT MAMMO DIAGNOSTIC DIGITAL TOMOSYNTHESIS LEFT W CAD Routine 11/08/2024 8:54 AM EDT Breast cancer screening, high risk patient Abnormal magnetic resonance imaging of breast MRI BREAST BILATERAL SCREENING W WO CONTRAST Routine 10/11/2024 10:07 AM EDT At high risk for breast cancer LIQUID-BASED PAP SMEAR WITH HPV GENOTYPING IF ASCUS, [facility] ([facility]) Routine 08/09/2022 5:56 PM EDT Atypical squamous cells of undetermined significance on cytologic smear of cervix (ASC-US) SCANNED - PAP SMEAR 06/25/2021 from Last 3 Months or Most Recently Relevant to Health Maintenance Results * Tissue Pathology Exam (11/08/2024 10:43 AM EDT) Only the most recent of2 resultswithin the time period is included. 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 11/11/2024 10:25 AM EDT [facility] Gross Description 1. Breast, Left. [...] 72 hours. HDM 11/11/2024 10:25 AM EDT [facility] Microscopic Description The slides are reviewed and demonstrate histopathologic features supporting the above rendered diagnosis. 11/11/2024 10:25 AM EDT [facility] Tissue Left breast structure / Unknown Collection / Unknown 11/08/2024 10:43 AM EDT 11/08/2024 12:09 PM EDT us Lucina Ramirez MD PATHOLOGY/CYTOLOGY ORDERABL ES Final Result [facility]
[address] [place] [address], * (ABNORMAL) Mammo Diagnostic Digital Tomosynthesis Left [...] Ramirez MD IMG MAMMOGRAPHY ORDERABLES Final Result * (ABNORMAL) MRI Breast Bilateral Screening With [...] images were also obtained. A CAD system (SimpleReach) was utilized for data analysis. This examination [...] image 174, sagittal image 51 and the DynaCAD software is a focal asymmetry that may [...] DynaCAD software. No axillary adenopathy is appreciated. [facility] Final R esult * LIQUID-BASED PAP SMEAR WITH HPV GENOTYPING IF ASCUS ([facility]) (08/09/2022 5:56 PM EDT) Reference Lab Report [facility] [address] [place] [address] or [phone] Hernan Nielsen M.D., Cst PATIENT NAME [facility]. [id number] AGE SEX SSN CLIENT REF # [facility] 41 1980 F [id number] [address] [facility] [id number] REQUESTING Amairani. ATTENDING [place] [address] ESEQUIEL TELLES DATE COLLECTED DATE RECEIVED DATE REPORTED 08/09/2022 08/10/2022 08/12/2022 ThinPrep Pap with Cytyc Imaging DIAGNOSIS: Negative for intraepithelial lesion or malignancy Multiple factors can influence accuracy of Pap tests; therefore, screening at regular intervals is necessary for early cancer detection. SPECIMEN ADEQUACY: SATISFACTORY FOR EVALUATION Transformation zone is present. SOURCE OF SPECIMEN: CERVICAL/ENDOCERV ICAL SLIDES: 1 CLINICAL HISTORY: Atypical squamous cells of undetermined significance on cytologic smear of cervix (ASC-US) OCEANOGRAPHER PHYSICAL: SHREYA SHARIF (ASCP) CPT CODES: [id number] 08/12/2022 5:42 AM EDT [facility] ThinPrep Vial Cervix uteri structure / Unknown Collection / Unknown 08/09/2022 5:56 PM EDT 08/09/2022 5:56 PM EDT us Esequiel Telles MD PATHOLOGY/CYTOLOGY ORDERABLES F inal Result [facility]
[address] [place] [address], * SCANNED - PAP SMEAR (06/25/2021) us Esequiel Telles MD CHART REVIEW TABS Final Resu lt from Last 3 Months or Most Recently Relevant to Health Maintenance Insurance [facility] PPO Member Subscriber Plan / Payer (Ef fective 2021-Present) Name:Tori Earl Relation to Subscriber:Self Name:Tori Earl Payer ID:[id number] ([facility]) Type:Not on file Address: [facility] [address] [place] [id number] Care Teams Bit Sander Relationship Specialty Start Date End Date Cristela Ceja APRN [address] [place] [address] [place] [address] PCP - General Nurse Practitioner 05/19/23
--- OUTSIDE RECORDS SUMMARY | 2024-11-18 09:27 | XMS_ITS | Encounter Summary ---
Author Organization [facility] Address [address] [place] [address] Care Team Providers Care Stripper Soft Plastic Name Role Phone Cristela Ceja JESSY Primary Care Provider [phone] Encounter Details Date Type Department Care Team (Latest Contact Info) Description 11/08/2024 Travel Social History Tobacco Use Types Packs/Day Years [...] on file documented as of this encounter Plan of Treatment Upcoming Encounters Date Type Department Care Team (Late st Contact Info) Description 03/13/2025 11:15 AM EST Office Visit [facility] [address] [facility] [address] [place] [address] Alexey Lee MD [address] [facility] [address] [place] [address] 04/21/2025 10:20 AM EST Appointment [facility] [place] [address] 08/29/2025 9:30 AM EDT Office Visit [facility] [address] [facility] [address] [place] [address] Rita Araya APRN [address] [facility] [address] [place] [address] documented as of this encounter Visit Diagnoses Not on filedocumented in this encounter Care Teams Stripper Soft Plastic Relationship Specialty Start Date End Date Cristela Ceja APRN [address] [place] [address] [place] [address] PCP - General Nurse Practitioner 05/19/23 documented as of this encounter
--- OUTSIDE RECORDS SUMMARY | 2024-11-18 09:27 | XMS_ITS | Data Portability ---
Author Organization [facility] Address [address] [place] [address] Care Team Providers Care Rn Discharge Name Role Phone TOBIAS LEMONSA Primary Care Provider Assessment Encounter Date Assessment Date Assessment LastModified by Organization Details LastModified Time 11/08/2021 11/08/2021 1. Controlled migraine 2. Controlled/resol gabriel BIH 3. No recurrence of BIH sx off acetazolamide 4. Overweight wt 170 lbs, BMI 32 5. Smoker, 1 enio per day Plan 1. Recheck in 6 months 2. No new med changes 3. No changes in management [email or web address] Not available 11/09/2021 06:12:51 03/21/2022 03/21/2022 1. Migraine 2. Improved migraine health, decrease frequency and intensity of migraine since she eliminated equal sweetener 3. Migraine trigger Equal, sweetener, she stopped this and migraine decreased dramatically 4. Relpax, excellent rescue benefit 5. No symptoms of benign intracranial hypertension (BIH) 6. Successful weight loss, has dropped 25 lbs , current 164 lbs, BMI 31 7. Anxiety, controlled 8. Depression, partially controlled 9. Overweight, improved today 164 lbs, BMI 31 10. Cigarette smoking, 1 pack/day; I encouraged wean down to 1/2 pack per day 11. Under exercised, I encouraged walk in halls at school after students leave start a routine 20 minutes walking 3 times per week 12 insomnia Plan 1. Continue current Relpax 2. Continue trazadone 3. Continue weight loss efforts 4. Add exercise with walking for 20 minutes 3 times per week (I encouraged walk halls after school at end of the school day, Walk for 20 minutes before going home 5. I strongly encouraged wean down to 1/2 pack cigarettes per day 6. Recent eye exam with Dr. Parker and got a good report 7. I renewed her prescription for trazodone 8. Follow-up in 6 months, sooner if needed. [email or web address] Not available 03/21/2022 21:57:48 05/17/2022 05/17/2022 1. Benign Intracranial hypertension, no supine headache, no tinnitus, no vision changes 2. Migraine, success with Advil and Relpax 3. Overweight, successful wt loss 30 lbs , current 159 lbs with clothes, BMI 30 4. Hypertension follows with Dr. Rosetta Hayes 3 or 4 times per year follows with Dr. Alejandra Parker once per year Plan 1. continue relpax , I renewed Rx for 3 month supply and 3 refills 2. Recheck in 1 year [email or web address] Not available 08/10/2022 14:02:32 05/16/2023 05/16/2023 Assessment: 1. Benign Intracranial Hypertension, in remission not on medication This is going well no changes and no med needed 2. Normal vision, corrected with glasses 3. Normal fundus exam; no disc edema 4. Rare episodes of brief tinnitus 5. Most of time , symptom free, (None of the BIH triad of sx - headache, vision darkening and tinnitus only rare episode of transient tinnitus 6. She is safe to remain off BIH treatment meds 7. Migraine 8. Rare episode of migraine headache; has great rescue benefit from eletriptan prn 9 Overweight. 161 lbs, BMI 30.5 10. Cigarette smoker. 1 pack per day 11. Anxiety/depressi on, on meds Plan 1. Doing well with BIH in remission 2. Does not need Rx for BIH 3. Continue Ophthalmology follow with dr. Hernan Parker office 4. Follow up here in 1 year with Agueda Clemente PA-C 5. I advised stop smoking- for 1 week, remove 1 cig from pack that AM 2nd week, remove 2 cigs from pack that AM 3rd week, remove 3 cigs from pack that AM onward by the week 5. 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 Pt and mother are well aware of BIH sx; she will call if sx return 7 I encouraged keep Ophth and Neuro F/up at least one visit per year, may need each 6 months. DB [email or web address] Not available 05/16/2023 17:54:06 10/17/2023 10/17/2023 43 yo here today for 6m recheck on BIH, migraines She continues to be symptoms free from the BIH, however she has noted about 10lb weight gain in the last 6m, feels appetite hasn't changed any and she isn't eating that much. Doesn't exercise much. Recommend regular exercise, increasing protein intake. Further discuss Vraylar with prescribing provider. Refill on ondansetron sent in for her. Doesn't need eletriptan at this time RTC 6m, sooner if problems. [email or web address] Not available 10/17/2023 09:42:07 Plan of Treatment Reminders Order Date Submit Date Provider Last Modified By Organization Details Last Modified Time Details Appointments None recorded. Lab None recorded. Referral None recorded. Procedures None recorded. Surgeries None recorded. Imaging None recorded. Medication Orders ondansetron 4 mg disintegrat ing tablet 2023 024 [employer] [address] [place], [address], 4 09:31:44 ondansetron 4 mg disintegrat ing tablet 2023 024 [email or web address] [facility] [employer] [address], [place], [address], 4 07:54:18 eletriptan 40 mg tablet 2022 023 [employer] [address], [place], [address], 3 08:48:28 Patient TargetsNo targets recorded. Patient Instructions Encounter Date Encounter Id Patient Instructions Last Modified By Organization Details Last Modified Time 11/08/2021 [id number] Body Mass Index: Care Instructions- [email or web address] Not available 11/08/2021 08:57:22 05/16/2023 [id number] Body Mass Index: Care Instructions- [email or web address] Not available 05/16/2023 17:59:22 Reason for Referral None Reported. Problems Name Problem SNOMED Code Status Onset Date Resolution Date Notes Provider Name and Address Organization Details Recorded Time Benign intracran ial hypertens ion 50387344 Active 2015 From Automated Load;Provi lindsey: Ezequiel Puri;Stat us: Active Not Available [facility] 6 01:25:57 Headache 60697556 Active 2015 From Automated Load;Provi lindsey: Ezequiel Puri;Stat us: Active Not Available [facility] 6 01:25:57 Visual disturban ce 96923645 Active 2015 From Automated Load;Provi lindsey: Ezequiel Puri;Stat us: Active Not Available [facility] 6 01:25:57 Optic disc edema 032300812 Active 2015 From Automated Load;Provi lindsey: Ezequiel Puri;Stat us: Active Not Available [facility] 6 01:25:57 Obesity 387924833 Active 2015 From Automated Load;Provi lindsey: Ezequiel Puri;Stat us: Active Not Available [facility] 6 01:25:57 Migraine 79324798 Active 2018 Marilyn rutledge [facility] 9 10:23:31 Problem Notes None recorded. Procedures Surgical History Date Name Laterality Status Provider Name and Address Organization Details Recorded Time Tonsillectomy completed Regla Negra [facility] 05/16/2023 09:48:02 myringotomy and insertion of tympanic ventilation tube completed Regla Negra [facility] 05/16/2023 09:48:13 Caesarean Section completed Christopher rios [facility] 06/14/2016 12:11:04 Imaging Results None recorded. Procedure Notes None recorded. Medical Equipment None Reported. Allergies No known drug allergies Medications Name Sig Start Date Stop Date Status Note LastModified by Organization Details LastModified Time Prescript ion - Prior Authoriza tion Request 03/23 completed Not Available Not Available Not Available fluoxetin e 40 mg capsule Take 1 capsule every day by oral route. active Not Available Not Available No t Available bupropion HCl SR 150 mg tablet,12 hr sustained -release Take 1 tablet twice a day by oral route. active Not Available Not Available No t Available trazodone 50 mg tablet Take 0.5 tablets every day by oral route as needed for 30 days. 2021 active Not Available Not Available Not Avai lable atorvasta tin 10 mg tablet Take 1 tablet every day by oral route. active Not Available Not Available No t Available acetazola mide 250 mg tablet 4 tabs po BID 07/30 completed Not Available Not Available Not Available tramadol 50 mg tablet Every six hours 06/19 completed Duration : 30 days;Obdulio quency: q6h;Alt Frequenc y: prn;Medi cation Descript ion: tramadol ; Dosage:1 -2; Route:or al; refills: 5; Quantity :100 tablet Not Available Not Available Not Available bupropion HCl 100 mg tablet Take 1 tablet twice a day by oral route. 05/16 completed Not Available Not Available Not Available potassium chloride 20 mEq oral packet Take 1 packet 4 times a day by oral route. 10/16 completed Not Available Not Available Not Available amlodipin e 10 mg tablet Take 1 tablet every day by oral route. active Not Available Not Available No t Available buspirone 10 mg tablet Take 1 tablet 3 times a day by oral route. 03/23 completed Not Available Not Available Not Available hydrochlo rothiazid e 12.5 mg capsule Take 1 capsule every day by oral route. active Not Available Not Available No t Available furosemid e 20 mg tablet Two times a day 09/19 completed Duration : 30 days;Ins truction s: 1 tab po BID;Freq uency: bid;Medi cation Descript ion: furosemi de; Dosage:1 ; Route:or al; refills: 3; Quantity :180 tablet Not Available Not Available Not Available ondansetr on 4 mg disintegr ating tablet 1 pill on the tongue each 4 hours as needed for nausea 2023 active Not Available Not Available Not Avai lable fluoxetin e 20 mg capsule Take 1 capsule every day by oral route. 05/16 completed Not Available Not Available Not Available Celexa 40 mg tablet Daily 09/04 completed Frequenc y: daily;Me dication Descript ion: citalopr am; Dosage:1 ; Route:or al; refills: 0; Quantity :30 tablet Not Available Not Available Not Available eletripta n 40 mg tablet 1 tab at start of migraine and may repeat once only after 2 hours if needed. do not exceed 2 tabs per 24 hours 2022 active Not Available Not Available Not Avai [email or web address] angel Klor-Con M20 mEq tablet,ex tended release Daily 09/19 completed Frequenc y: daily;Me dication Descript ion: potassiu m chloride ; Dosage:1 ; Route:or al; refills: 3; Quantity :90 tablet, extended release Not Available Not Available Not Available melatonin active Not Available Not Lizy ilable Not Available Nicoderm 05/13 completed Not Available Not Available Not Available fluoxetin e 08/10 completed Not Available Not Available Not Available vitamin B complex 03/23 completed Not Available Not Available Not Available amlodipin e 05/16 completed Not Available Not Available Not Available Nicorette 10/16 completed Not Available Not Available Not Available trazodone 06/19 completed Medicati on Descript ion: trazodon e; refills: 0 Not Available Not Available Not Available magnesium malate 06/19 completed Medicati on Descript ion: OTC; refills: 0 Not Available Not Available Not Available Chantix Continuin g Month Box 03/23 completed Not Available Not Available Not Available Fioricet with Codeine 50 mg-300 mg-40 mg-30 mg capsule Every six to eight hours 06/19 completed Instruct ions: 1 tab po Q6-8hr as needed for headache max 2 per day;Freq uency: q6-8h;Me dication Descript ion: acetamin ophen/bu talbital /caffein e/codein e; Dosage:1 ; Route:or al; refills: 5; Quantity :60 capsule Not Available Not Available Not Available Fiber Therapy (ca polycarbo ph) active Not Available Not Available Not Available Vraylar 1.5 mg capsule Take 1 capsule every day by oral route. active Not Available Not Available No t Available Ajovy Syringe 225 mg/1.5 mL subcutane ous Inject 1.5 mL every month by subcutan eous route as directed for 30 days. 10/10 completed Not Available Not Available Not Available Aimovig Autoinjec tor 140 mg/mL subcutane ous auto-inje ctor Inject 1 mL every month by subcutan eous route. 10/14 completed Not Available Not Available Not Available Vitals Date Recorded Body height Body mass index (BMI) Body weight Heart rate Oxygen saturation Oxygen saturation in Arterial blood by Pulse oximetry Systolic And Diastolic Provider Name and Address Organization Details Last Updated DateTime 4 154.94 cm 30.5 kg/m2 71382.1 7 g 72 /min 97 % 97 % 122/84 mm[Hg] Regla Negra [facility] 4 09:49:31 Date Recorded Body height Body mass index (BMI) Body weight Systolic And Diastolic Provider Name and Address Organization Details Last Updated DateTime 05/17/2022 154.94 cm 30.1 kg/m2 30053.89 g 128/86 mm[Hg] [facility]17[place] 08:30:35 Date Recorded Body height Body mass index (BMI) Body weight Heart rate Oxygen saturation Oxygen saturation in Arterial blood by Pulse oximetry Systolic And Diastolic Provider Name and Address Organization Details Last Updated DateTime 4 154.94 cm 32.5 kg/m2 86665.5 9 g 71 /min 96 % 96 % 110/72 mm[Hg] Regla Negra [facility] 4 09:10:08 Date Recorded Body height Body mass index (BMI) Body weight Provider Name and Address Organization Details Last Updated DateTime 11/08/2021 154.94 cm 32.1 kg/m2 44158.7 g Jenny Navarro [facility] 11/08/2021 08:21:54 Date Recorded Body height Body mass index (BMI) Body weight Systolic And Diastolic Provider Name and Address Organization Details Last Updated DateTime 03/21/2022 154.94 cm 31 kg/m2 84505.85 g 124/80 mm[Hg] [facility] 03/21/2022 09:34:43 Social History Question Answer Notes LastModified by Organizat ion Details LastModified Time Tobacco Smoking Status Current Every Day [facility] 09:40:48 What Is Your Level Of Caffeine Consumption? Moderate [email or web address] Information not available 06/14/2016 How Much Tobacco Do You Chew? None [email or web address] Information not available 07/30/2018 Live Alone Or With Others? With Others Information not available 02/05/2019 Marital Status Informatio n not available 02/05/2019 What Was The Date Of Your Most Recent Tobacco Screening? 10/17/2023 Information not available 10/17/2023 At What Age Did You Start Smoking Tobacco? 16 Information not available 10/17/2023 How Much Tobacco Do You Smoke? 1 PPD [email or web address] Information not available 10/14/2020 Has Tobacco Cessation Counseling Been Provided? Yes [email or web address] Information not available 09/04/2017 On What Date Was Tobacco Cessation Counseling Provided? 07/30/2018 [email or web address] Information not available 07/30/2018 Sex: Unknown Functional Status Question Answer Note LastModified by Organizat ion Details LastModified Time What is your level of alcohol consumption? Moderate [email or web address] Information not available 06/14/2016 Do you or have you ever used smokeless tobacco? Never used smokeless tobacco Information not available 02/05/2019 Do you or have you ever used e-cigarettes or vape? Never used electronic cigarettes Information not available 02/05/2019 Mental Status None recorded. Family History Relationship Description Onset Age of this Age Resolved Age Notes LastModified by Organization Details LastModified Time Unspecified Relation Family history of malignant neoplasm [email or web address] Not available 2016 12:10:03 Unspecified Relation Diabetes mellitus [email or web address] Not available 2016 12:10:10 Unspecified Relation Heart disease [email or web address] Not available 2016 12:10:20 Unspecified Relation Hypertensive disorder [email or web address] Not available 2016 12:10:28 Unspecified Relation Family history of stroke [email or web address] Not available 2017 11:12:55 Medical History Condition Response Coronary Artery Disease N Other N Thyroid Disease N Gallbladder Disease N COPD N Colon Polyps N Heart Attack (CA) N Diabetes N Congestive Heart Failure (CHF) N Stroke N Diverticulitis N Asthma N Crohn's Disease N Liver Disease N Heart Disease N Hypertension N Kidney Disease N Gynecological HistoryNo gynecological history recorded. Obstetrics History GPAL:G 0 P 0 0 0 0 Past Encounters Encounter ID Performer Location Encounter Start Date Encounter Closed Date Diagnosis/Indication Diagnosis SNOMED-CT Code Diagnosis ICD10 Code Diagnosis Note [id number] EZEQUIEL PURI MD [facility] [address] [place] [address] 06/15/2016 15:55:15 06/15/2016 16:50:55 Headache 69264784 R51 Benign int racranial hypertension 88189009 G93.2 Long-term drug therapy 096479999 Z79.640 [id number] EZEQUIEL PURI MD [facility] [place] [facility] [address] [address] 09/19/2016 09:35:48 09/19/2016 10:47:53 Headache 19493874 R51 Benign int racranial hypertension 30816252 G93.2 Long-term drug therapy 369186433 Z79.899 Cigarette smoker 0253134 7 F17.088 [id number] EZEQUIEL PURI MD [facility] [place] [facility] [address] [place] [address] 02/07/2017 14:47:51 02/07/2017 15:30:54 Benign intracranial hypertension 76397454 G93.2 Long-term drug therapy 596607213 Z79.546 [id number] EZEQUIEL PURI MD [facility] [place] [address] [place] [address] 06/19/2017 11:07:19 06/19/2017 12:05:17 Migraine without aura 19289950 G43.009 Benign int racranial hypertension 20681363 G93.2 Long-term drug therapy 288701133 Z79.461 [id number] EZEQUIEL PURI MD [facility] [place] [facility] [address] [address] 09/04/2017 14:43:14 09/04/2017 16:17:11 Benign intracranial hypertension 44795574 G93.2 Tobacco user 403807956 Z 72.0 Migraine without aura 56 325104 G43.610 [id number] EZEQUIEL PURI MD [facility] [place] [facility] [address] [place] [address] 03/12/2018 14:32:27 03/12/2018 15:29:47 Optic disc edema 156652781 H47.10 Migraine without aura 56 003416 G43.009 Benign int racranial hypertension 50019631 G93.2 Obesity 716391103 E66.9 [id number] EZEQUIEL PURI MD [facility] [place] [facility] [address] [facility] [address] [address] 07/30/2018 12:38:59 07/30/2018 13:49:31 Headache 30258255 R51 Migraine without aura 56 272425 G43.009 Benign int racranial hypertension 29303684 G93.2 Cigarette smoker 3152231 7 F17.210 Body mass index 30+ - obesity 892063238 Z68.32 [id number] EZEQUIEL PURI MD [facility] [place] [address] [facility] [address] [place] [address] 2 10/09/2018 14:57:51 10/09/2018 16:19:18 Migraine without aura 77472067 G43.009 Benign int racranial hypertension 60689696 G93.2 Visual disturbance 84186 001 H53.9 [id number] EZEQUIEL PURI MD [facility] [address] [place] [address] 1 02/05/2019 10:31:19 02/05/2019 10:51:42 Migraine 57707161 G43.143 [id number] EZEQUIEL PURI MD [facility] [address] [place] [address] 1 10/14/2019 10:42:51 10/14/2019 11:38:32 Migraine 58563771 G43.909 Long-term drug therapy 114964080 Z79.256 [id number] EZEQUIEL PURI MD [facility] [address] [place] [address] 1 10/14/2020 09:30:51 10/14/2020 11:22:18 Migraine 98696925 G43.909 Benign int racranial hypertension 32558068 G93.2 Headache 20983564 R51.9 [id number] EZEQUIEL PURI MD [facility] [address] [place] [address] 1 03/23/2021 09:28:34 03/23/2021 10:48:51 Migraine 97523985 G43.909 Headache 62909468 R51.9 Benign int racranial hypertension 86313751 G93.2 History of idiopathic intracranial hypertension 0550844670 7248153 Z86.69 [id number] EZEQUIEL PURI MD [facility] [address] [place] [address] 1 05/13/2021 14:22:37 05/13/2021 16:07:59 Migraine 63485589 G43.336 [id number] EZEQUIEL PURI MD [facility] [address] [place] [address] 1 08/10/2021 15:24:35 08/10/2021 16:45:07 Migraine 95324564 G43.878 [id number] EZEQUIEL PURI MD [facility] [address] [place] [address] 1 11/08/2021 08:06:20 11/08/2021 11:47:09 Migraine 44561134 G43.909 Benign int racranial hypertension 30780329 G93.2 Body mass index 30+ - obesity 383428907 Z68.32 Moderate s moker (20 or less per day) 08010733 F17.210 [id number] EZEQUIEL PURI MD [facility] [address] [place] [address] 1 03/21/2022 09:25:45 03/21/2022 11:02:08 Migraine 33435347 G43.909 Benign int racranial hypertension 15789773 G93.2 Insomnia 746585567 G47.0 0 Heavy ciga rette smoker (20-39 cigs/day) 298863693 Z72.0 [id number] EZEQUIEL PURI MD [facility] [address] [place] [address] 1 05/17/2022 08:24:31 05/17/2022 15:31:09 Migraine 47886226 G43.909 Benign int racranial hypertension 56978052 G93.2 [id number] EZEQUIEL PURI MD [facility] [address] [place] [id number] 05/16/2023 09:37:24 05/18/2023 04:59:55 Migraine 88169200 G43.909 Benign int racranial hypertension 52830797 G93.2 Tinnitus 07671619 H93.19 Long-term current use of drug therapy 306892132 Z79.899 Body mass index 30+ - obesity 092631102 Z68.32 Z68.30 Heavy ciga rette smoker (20-39 cigs/day) 032773807 Z72.0 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 [id number] TOAN CLEMENTE PA-C [facility] [address] [place] [address] 10/17/2023 08:59:22 10/18/2023 05:10:56 Migraine 93003902 G43.909 Health Concerns Section Related Observation LastModified by Organization Detai ls LastModified Time None Recorded Concern Status LastModified by Organization Details LastModified Time None Recorded Advance Directives Directive None Recorded Payers Insurance Date Sequence Insurance Name Policy Number Policy Barbosa Covered Member ID Barbosa Member ID Guarantor Name 03/21/2022 1 [place] [id number] Tori Killian Rajat [id number] Tori Killian Rajat 04/13/2024 1 [place] [id number] Tori Earl [id number] Tori Earl Notes Date Note Type Note Provider Name and Address Organization Details Recorded Time 11/08/2021 text/html Recheck 41 year old woman overall doing well no recurrence of BIH sx headaches under control history of BIH, has been away from acetazolamide for about 2 years take djaoms88 mg formerly tried aimovig 140 mg however stopped due to inadequate benefit occasional ringing in ears rare dark spots in vision overall doing well EZEQUIEL PURI MD [address] [place] [address], [phone], [facility] 11/09/2021 06:15:16 03/21/2022 text/html Recheck 41 year old woman, She is doing well. 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 Parker and she says she got a good report Weight loss 25 pounds, she says related to stress today 164 lbs, in September 189 lbs smokes 1 pack per day; I encouraged wean down to 1/2 pack per dayno alcohol use EZEQUIEL PURI MD [address] [place] [address], [phone], [facility] 03/21/2022 21:59:56 05/17/2022 text/html Recheck 41 year old woman Migraine Pt stated she has not had any migraines in the past month Pt stated the Relpax 40 mg is helping w/migraines Pt overall doing well EZEQUIEL PURI MD [address] [place] [address], [phone], [facility] 08/10/2022 14:02:40 05/16/2023 text/html Recheck for Rickie gn Intracranial Hypertension 42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 She is present with her mother, Kendal Haynes (retired nurse) Benign Intracranial HypertensionI quizzed the patient on how she is doing with [facility], she says doing well Does not have any of the 3 major sxno vision darkeningno tinnitusno headaches when lying flat Generally, she does not have headachesbut today she has a headache related to poor sleep. She says rare episodes of tinnitus. She denies any darkening of her vision. Migraine is rare with good relief with eletriptan rescue Rx. Current Medications:Ondanse gato 4mgAmlodipine 10mgAtorvastatin 10mgBupropion HCL SR 150mgEletriptan 40mgFluoxetine 40mgHydrochlorothia zide 12.5mgMelatoninTraz adone 50mgVraylar 1.5mg EZEQUIEL PURI MD [address] [place], [phone], [facility] 05/17/2023 08:33:24 10/17/2023 text/html 43 yo here today for 6m recheck. Last saw Dr. Puri on 05/16/23: 1. Doing well with BIH in remission2. Continue Ophthalmology follow with dr. Hernan Parker office3. I advised stop smoking- for 1 week, remove 1 cig from pack that AM2nd week, remove 2 cigs from pack that AM3rd week, remove 3 cigs from pack that AMonward by the week4. Pt and mother are well aware of BIH sx; she will call if sx return5. I encouraged keep Ophth and Neuro F/up at least one visit per year, may need each 6 months. BIH: historically acetazolamide 250mg 1 BIDx1 week then 2 BID x 1 week then 3 BIDMigraines: eletriptan 40mg, ondansetron No symptoms of BIH (blacking out of vision, tinnitus, worsening MANCINI when laying down), has noted some weight gain that seems to correspond with the Vraylar so she is worried about that.Has appt with them next month and will discuss. she isn't having any swelling or other indication of holding onto fluid.Migraines are less, hasn't had one in a while, the eletriptan works well for her. They do often come around period time. TOAN CLEMENTE PA-C [address] [place], [address], [facility] 10/17/2023 09:42:21 OBGyn Episode No OBEpisode recorded.
--- OUTSIDE RECORDS SUMMARY | 2024-11-18 09:28 | XMS_ITS | Encounter Summary ---
Author Organization [facility] Address [address] [place] [address] Care Team Providers Care Car Scrubber Name Role Phone Cristela Ceja JESSY Primary Care Provider [phone] Encounter Details Date Type Department Care Team (Latest Contact Info) Description 10/11/2024 Travel Social History Tobacco Use Types Packs/Day [...] 03/13/2025 11:15 AM EST Office Visit [facility] [address] [facility] [address] [place] [address] Alexey Lee MD [address] [facility] [address] [place] [address] 04/21/2025 10:20 AM EST Appointment [facility] [place] [address] 08/29/2025 9:30 AM EDT Office Visit [facility] [address] [facility] [address] [place] [address] Rita Araya APRN [address] [facility] [address] [place] [address] documented as of this encounter Visit Diagnoses Not on filedocumented in this encounter Care Teams Car Scrubber Relationship Specialty Start Date End Date Cristela Ceja APRN [address] [place] [address] PCP - General Nurse Practitioner 05/19/23 documented as of this encounter
--- OUTSIDE RECORDS SUMMARY | 2024-11-18 09:28 | XMS_ITS | Encounter Summary ---
Author Organization [facility] Address [address] [place] [address] Care Team Providers Care Stock Cutter Name Role Phone Cristela Ceja APRN Primary Care Provider [phone] Encounter Details Date Type Department Care Team (Late st Contact Info) Description 10/15/2024 Telephone [facility] MRI AT [address] [address] Stephanie Seran Social History Tobacco Use Types Packs/Day Years [...] encounter Miscellaneous Notes * Telephone Encounter - Stephanie Serna - 10/15/2024 2:14 PM EDT Called patient with MRI Breast results. Recommended DX MMG and 2nd Look scheduled for 7/11 at 8:30 and 10:00 at the [address]. Pt not on BT. Pt expressed understanding and was encouraged to call withany further questions or concerns. documented in this encounter Plan of Treatment Upcoming Encounters Date Type Department Care Team (Late st Contact Info) Description 03/13/2025 11:15 AM EST Office Visit [facility]OLOG[facility] [address] [facility] [address] [place] [address] Alexey Lee MD [address] [facility] [address] [place] [address] 04/21/2025 10:20 AM EST Appointment [facility] [address] [place] [address] 08/29/2025 9:30 AM EDT Office Visit [facility] [address] [facility] [address] [place] [address] Rita Araya APRN [address] [facility] [address] [place] [address] documented as of this encounter Visit Diagnoses Not on filedocumented in this encounter Care Teams Stock Cutter Relationship Specialty Start Date End Date Cristela Ceja APRN [address] [place] [address] PCP - General Nurse Practitioner 05/19/23 documented as of this encounter
== END 2024-11-14 23:59 | disposition home or self-care (01) ==
LOC: LAB.DROPOF 11-18 09:25
PROVIDERS: PCP Nurse Practitioner Family; Visit Provider Nurse Practitioner Family
DX: E87.6 Hypokalemia (principal); I10 Essential (primary) hypertension; R53.83 Other fatigue; E11.9 Type 2 diabetes mellitus without complications; E83.52 Hypercalcemia
CPT/HCPCS: 81001; 82043; 82570; 84156; 87086

== ENCOUNTER 2024-11-22 12:17 | Outpatient (CLI) | payer BC, SELFPAY ==
--- OUTSIDE RECORDS SUMMARY | 2024-10-11 08:22 | XMS_ITS | Encounter Summary ---
Author Organization [facility] Address [address] [place] [address] Care Team Providers Care Retail And Promotions Coordinator Name Role Phone Cristela Ceja APRN Primary Care Provider [phone] Reason for Referral * MRI/CAT/PET Scan (Routine) - Closed Specialty Diagnoses / Procedures Referred By Sauyma Referred To Contact Radiology Diagnoses At high risk for breast cancer Procedures MRI Breast Bilateral Screening With & Without Contrast CHG MRI BREAST WITHOUT&WITH CONTRAST W/CAD BILATERAL Rita Araya APRN [address] [facility] [address] [place] [address] Phone: tel: fax: [address] [address] Phone: tel: Referral ID Status Reason Start Date Expiration Date Visits Re quested Visits Authorized [id number] Closed 08/30/2024 11/29/2025 1 1 Reason for Visit * MRI/CAT/PET Scan (Routine) - Closed Specialty Diagnoses / Procedures [facility] Referred To Contact Radiology Diagnoses At high risk for breast cancer Procedures MRI Breast Bilateral Screening With & Without Contrast CHG MRI BREAST WITHOUT&WITH CONTRAST W/CAD BILATERAL Rita Araya APRN [address] [facility] [address] [place] [address] Phone: tel: fax: [address] [address] [place] [address] Phone: tel: Referral ID Status Reason Start Date Expiration Date Visits Re quested Visits Authorized [id number] Closed 08/30/2024 11/29/2025 1 1 Encounter Details Date Type Department Care Team (Latest Contact Info) Description 10/11/2024 8:22 AM EDT - 10/11/2024 11:59 PM EDT Hospital Encounter [facility] [address] [place] [phone] Rita Araya, [employer]UCK DRIVER [address] [place] [address] At high risk for breast cancer Discharge Disposition: Home or Self Care Social History Tobacco Use Types Packs/Day Years Used Date Smoking Tobacco: Every Day Cigarettes 0.5 27 Passive Smoke Exposure: Past Smokeless Tobacco: Never Comments:1.5 ppd Alcohol Use Standard Drinks/Week Comments Not Currently 0 (1 standard drink = 0.6 oz pur e alcohol) AUDIT-C Answer Date Recorded Q1: How often do you have a drink containing alc ohol? Never 02/02/2021 Average Number of Drinks Not on file 021 Frequency of Binge Drinking Not on file 08/2020 PHQ-2 Answer Date Recorded Patient Health Questionnaire-2 Score 0 08/30/2024 Comments No Sex and Gender Information Value Date Recorded Sex Assigned at Female 09/08/2024 1:18 PM EDT Legal Sex Female 1:14 PM EDT Gender Identity Not on file Sexual Orientation Not on file documented as of this encounter Medications at Time of Discharge amLODIPine (NORVASC) 10 MG tablet Take 1 tablet by mouth Daily. 06/08/2021 atorvastatin (LIPITOR) 40 MG tablet Take 1 tablet by mouth Daily. buPROPion XL (Wellbutrin XL) 300 MG 24 hr tablet Take 1 tablet by mouth Daily. eletriptan (RELPAX) 40 MG tablet Take 1 tablet by mouth 1 (One) Time As Needed for Migraine. may repeat in 2 hours if necessary FIBER PO Take by mouth Daily. FLUoxetine (PROzac) 40 MG capsule Take 1 capsule by mouth Daily. 01/17/2021 hydroCHLOROthiazide 25 MG tablet Take 1 tablet by mouth Every Morning. 06/18/2021 melatonin 5 MG tablet tablet Take 1 tablet by mouth Every Night. ondansetron ODT (ZOFRAN-ODT) 4 MG disintegrating tablet Take by mouth As Needed. 06/28/2022 promethazine (PHENERGAN) 12.5 MG tablet Take by mouth As Needed. 06/01/2022 traZODone (DESYREL) 50 MG tablet Take 0.5 tablets by mouth Every Night. Vraylar 1.5 MG capsule capsule Take 1 capsule by mouth Daily. documented as of this encounter Plan of Treatment Upcoming Encounters Date Type Department Care Team (Late st Contact Info) Description 03/13/2025 11:15 AM EST Office Visit [facility] [address] [facility] [address] [place] [phone] Alexey Lee MD [address] [facility] [address] [place] [phone] 04/21/2025 10:20 AM EST Appointment [facility] [address] [place] [phone] 08/29/2025 9:30 AM EDT Office Visit [address] [phone] Rita Araya APRN [address] [facility] [address] [place] [address] documented as of this encounter Procedures Procedure Name Priority Date/Time Associated Diagnosis Comments MRI BREAST BILATERAL SCREENING W WO CONTRAST Routine 10/11/2024 10:07 AM EDT At high risk for breast cancer documented in this encounter Results * (ABNORMAL) MRI Breast Bilateral Screening With & Without Contrast (10/11/2024 10:07 AM EDT) Anatomical Region Laterality Modality Breast Bilateral Magnetic Resonan ce 10/12/2024 4:30 PM EDT Impressions 10/12/2024 4:34 PM EDT 2 areas of enhancement in the left breast which may reflect overlapping tissue and/or vascular structures. RECOMMENDATIONS: Diagnostic left mammogram using 2D 3D technique with second look ultrasound. If no suspicious findings are identified in 6-month follow-up breast MRI would be recommended BI-RADS CATEGORY: 0 incomplete exam Physician Order Diagnostic Mammogram with Breast Ultrasound if needed. Diagnosis: Abnormal Mammogram 10/12/2024 4:[address] Lucina Ramirez MD on Narrative 10/12/2024 4:34 PM EDT BILATERAL BREAST MRI HISTORY: Baseline High risk screening breast MRI in a 44-year-old female with a 30.4% lifetime risk for the development of breast cancer. TECHNIQUE: MRI was performed on a 1.5 Delma magnet utilizing an 8 channel Sentinelle breast coil. Pre-contrast spin-echo T1 weighted and T2 weighted sequences were obtained in the axial plane. Routine dynamic images were performed following the administration of 16 ml of Multihance contrast. Four postcontrast runs were obtained. No contrast complications occurred. Delayed high resolution post contrast T1 weighted sagittal images were also obtained. A CAD system (FastSoft) was utilized for data analysis. This examination was timed with the patient's menstrual cycle. COMPARISON: There are no prior MRIs available for comparison comparison is made to diagnostic mammogram dated 04/11/2024 FINDINGS: There is normal vascular enhancement and marked background enhancement. Marked background enhancement can limit the evaluation of breast MRI for abnormal areas of enhancement or enhancing masses. The breast tissue is heterogeneously dense. Scattered simple cysts are identified on T2 weighted sequences. RIGHT BREAST: There are no areas of abnormal morphology or enhancement in the right breast to indicate right breast malignancy. LEFT BREAST: In the upper inner quadrant of the right breast best visualized on axial subtracted image 174, sagittal image 51 and the TUBE software is a focal asymmetry that may or may not reflect a true mass but may reflect overlapping fibroglandular tissue and blood vessels. Kinetic analysis demonstrates progressive kinetics. At 6:00 in the anterior left breast is an 8.8 mm oval area of enhancement that may have a central lucency. This may reflect a true mass and/or overlying blood vessels best visualized on axial subtracted image 201, sagittal image 46 on the DynaCAD software. No axillary adenopathy is appreciated. us Rita Araya [employer] IMG MRI ORDERABLES Final R esult documented in this encounter Visit Diagnoses Diagnosis At high risk for breast cancer documented in this encounter Administered Medications Inactive Administered Medications - up to 3 most recent administrations Medication Order MAR Action Action Date Dose Rate Site gadobenate dimeglumine (MULTIHANCE) injection 16 mL 16 mL, Intravenous, Once in Imaging, On Mon10/11/24 at 0946, For 1 dose, Vesicant; admin as rapid bolus; flush with 5 mL NS after admin or 20 mL for renal or aortoiliofemoral vasculature Given 10/11/2024 9:54 AM EDT 16 mL documented in this encounter Care Teams Retail And Promotions Coordinator Relationship Specialty Start Date End Date Cristela Ceja APRN [address] [place] [address] [place] [address] PCP - General Nurse Practitioner 05/19/23 documented as of this encounter
--- OUTSIDE RECORDS SUMMARY | 2024-11-08 08:06 | XMS_ITS | Encounter Summary ---
Author Organization [facility] Address [address] [place] [address] Care Team Providers Care Split And Drum Room Supervisor Name Role Phone Cristela Ceja APRN Primary Care Provider [phone] Reason for Referral * Diagnostic Imaging (Routine) - Closed Specialty Diagnoses / Procedures Referred By Saumya huizar Referred To Contact Radiology Diagnoses Breast cancer screening, high risk patient Abnormal magnetic resonance imaging of breast Procedures Mammo Diagnostic Digital Tomosynthesis Left With CAD Rita Araya APRN [address] [facility] [address] [place] [address] Phone: tel: fax: Referral ID Status Reason [...] Left With CAD Rita Araya APRN [address] [facility] [address] [place] [address] Phone: tel: fax: Referral ID Status Reason Start Date Expiration Date Visits Re quested Visits Authorized Closed 10/15/2024 01/14/2026 1 1 Encounter Details Date Type Department Care Team (Latest Contact Info) Description 11/08/2024 8:06 AM EDT - 11/08/2024 11:59 PM EDT Hospital Encounter [facility] [address] [place] [address] Breast cancer screening, high risk patient; Abnormal [...] Description 03/13/2025 11:15 AM EST Office Visit [facility] [address] [facility] [address] [place] [address] Alexey Lee MD [address] [facility] [address] [place] [address] 04/21/2025 10:20 AM EST Appointment [facility] [address] [place] [phone] 08/29/2025 9:30 AM EDT Office Visit [facility] [address] [facility] [address] [place] [phone] Rita Araya APRN [address] [facility] [address] [place] [address] documented as of this encounter Procedures Procedure [...] breast documented in this encounter Care Teams Split And Drum Room Supervisor Relationship Specialty Start Date End Date Marcial JESSY Archibald [address] [place] [address] PCP - General Nurse Practitioner 05/19/23 documented as of this encounter
--- OUTSIDE RECORDS SUMMARY | 2024-11-08 08:07 | XMS_ITS | Encounter Summary ---
Author Organization [facility] Address [address] [place] [address] Care Team Providers Care Hemmer Chainstitch Name Role Phone Cristela Ceja APRN Primary Care Provider [phone] Reason for Referral * Diagnostic Imaging (Routine) - Closed Specialty Diagnoses / Procedures Referred By Saumya huizar Referred To Contact Radiology Diagnoses Breast cancer screening, high risk patient Abnormal magnetic resonance imaging of breast Procedures US Guided Breast Biopsy With & Without Device initial Rita Araya APRN [address] [facility] [address] [place] [address] Phone: tel: fax: Referral ID Status Reason Start Date Expiration Date Visits Re quested Visits Authorized Closed 10/15/2024 01/14/2026 1 1 Reason for Visit * Diagnostic Imaging (Routine) - Closed Specialty Diagnoses / Procedures [facility] Referred To Contact Radiology Diagnoses Breast cancer screening, high risk patient Abnormal magnetic resonance imaging of breast Procedures US Guided Breast Biopsy With & Without Device initial Rita Araya APRN [address] [facility] [address] [place] [address] Phone: tel: fax: Referral ID Status Reason Start Date Expiration Date Visits Re quested Visits Authorized [id number] Closed 10/15/2024 01/14/2026 1 1 Encounter Details Date Type Department Care Team (Latest Contact Info) Description 11/08/2024 8:07 AM EDT - 11/08/2024 11:59 PM EDT Hospital Encounter [facility] [address] [place] [address] Breast cancer screening, high risk patient; Abnormal [...] Description 03/13/2025 11:15 AM EST Office Visit [facility] [address] [facility] [address] [place] [address] Alexey Lee MD [address] [facility] [address] [place] [address] 04/21/2025 10:20 AM EST Appointment [facility] [address] [place] [phone] 08/29/2025 9:30 AM EDT Office Visit [facility] [address] [facility] [address] [place] [phone] Rita Araya APRN [address] [facility] [address] [place] [address] documented as of this encounter Procedures Procedure Name Priority Date/Time Associated Diagnosis Comments US GUIDED BREAST BIOPSY W WO DEVICE INITIAL Routine 11/08/2024 11:02 AM EDT Breast cancer screening, high risk patient Abnormal magnetic resonance imaging of breast TISSUE PATHOLOGY EXAM Routine 11/08/2024 10:35 AM EDT documented in this encounter Results * US Guided Breast Biopsy With & Without Device initial (11/08/2024 11:02 AM EDT) Anatomical Region Laterality Modality Breast N/A Ultrasound Tissue 11/08/2024 11:0 7 AM EDT Narrative 11/25/2024 10:23 AM EDT 12 Gauge Marquee ULTRASOUND GUIDED CORE BIOPSY History: 9 mm oval hypoechoic mass 6:00 left breast corresponding to an area of masslike enhancement on baseline High risk screening breast MRI Procedure: Written and verbal consent was obtained for ultrasound guided core biopsy of a 0.9 cm left breast mass located 6:00. Time out was observed to verify the patient's identity and correct location of the breast abnormality. The presence of the lesion was confirmed ultrasound and a lateral approach was chosen. The breast was prepped and draped in the usual sterile fashion and 2 cc 1% lidocaine with and without epinephrine was utilized for local anesthesia. A small skin incision was made with a scalpel and a 12gauge needle was introduced into the breast under direct sonographic guidance. The needle was placed into to the mass. A total of 6 core samples were obtained. The specimens were placed in formalin and forwarded to the pathology department. A post biopsy marking clip was placed. Post biopsy mammographic images were obtained. Upon completion of the procedure, compression was applied to the biopsy site until all appreciable bleeding subsided and a sterile dressing was applied. Post biopsy instructions were reviewed with the patient by our clinical breast imaging staff. A written copy of these instructions was also given to the patient. The patient tolerated the procedure well and no immediate complications occurred. SUMMARY: 12 gauge ultrasound guided core biopsy of a 0.9 cm left breast mass located 6:00. A post biopsy marking clip was placed. Pathology results are pending. 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 Negative for atypia or malignancy. Result is concordant 12 Gauge Marquee ULTRASOUND GUIDED CORE BIOPSY History: 7 mm oval mass 11:00 left breast corresponding to an area of masslike enhancement on baseline High risk screening breast MRI Procedure: Written and verbal consent was obtained for ultrasound guided core biopsy of a 0.7 cm left breast mass located 11:00. Time out was observed to verify the patient's identity and correct location of the breast abnormality. The presence of the lesion was confirmed ultrasound and a lateral approach was chosen. The breast was prepped and draped in the usual sterile fashion and 2 cc 1% lidocaine with and without epinephrine was utilized for local anesthesia. A small skin incision was made with a scalpel and a 12gauge needle was introduced into the breast under direct sonographic guidance. The needle was placed into to the mass. A total of 3 core samples were obtained. The mass appeared to decrease in size possibly consistent with cyst rupture. The specimens were placed in formalin and forwarded to the pathology department. A post biopsy marking clip was placed. Post biopsy mammographic images were obtained. Upon completion of the procedure, compression was applied to the biopsy site until all appreciable bleeding subsided and a sterile dressing was applied. Post biopsy instructions were reviewed with the patient by our clinical breast imaging staff. A written copy of these instructions was also given to the patient. The patient tolerated the procedure well and no immediate complications occurred. SUMMARY: 12 gauge ultrasound guided core biopsy of a 0.7 cm left breast mass located 11:00. A post biopsy marking clip was placed. Pathology results are pending. Pathology: Fibroadenoma. Negative for atypia or malignancy. Result is concordant. Recommendation: 6-month follow-up targeted bilateral breast ultrasound and 6-month follow-up breast MRI. _ Physician Order Diagnostic 6 Month follow up Mammogram with Breast Ultrasound if needed. Diagnosis: Abnormal Mammogram follow-up 11/25/2024 10:[address] Lucina Ramirez MD on Procedure Note Lucina Ramirez MD - 11/25/2024 12 Gauge Marquee ULTRASOUND GUIDED CORE BIOPSY History: 9 mm oval hypoechoic mass 6:00 left breast corresponding to an area of masslike enhancement on baseline High risk screening breast MRI Procedure: Written and verbal consent was obtained for ultrasound guided core biopsy of a 0.9 cm left breast mass located 6:00. Time out was observed to verify the patient's identity and correct location of the breast abnormality. The presence of the lesion was confirmed ultrasound and a lateral approach was chosen. The breast was prepped and draped in the usual sterile fashion and 2 cc 1% lidocaine with and without epinephrine was utilized for local anesthesia. A small skin incision was made with a scalpel and a 12gauge needle was introduced into the breast under direct sonographic guidance. The needle was placed into to the mass. A total of 6 core samples were obtained. The specimens were placed in formalin and forwarded to the pathology department. A post biopsy marking clip was placed. Post biopsy mammographic images were obtained. Upon completion of the procedure, compression was applied to the biopsy site until all appreciable bleeding subsided and a sterile dressing was applied. Post biopsy instructions were reviewed with the patient by our clinical breast imaging staff. A written copy of these instructions was also given to the patient. The patient tolerated the procedure well and no immediate complications occurred. SUMMARY: 12 gauge ultrasound guided core biopsy of a 0.9 cm left breast mass located 6:00. A post biopsy marking clip was placed. Pathology results are pending. 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 Negative for atypia or malignancy. Result is concordant 12 Gauge Marquee ULTRASOUND GUIDED CORE BIOPSY History: 7 mm oval mass 11:00 left breast corresponding to an area of masslike enhancement on baseline High risk screening breast MRI Procedure: Written and verbal consent was obtained for ultrasound guided core biopsy of a 0.7 cm left breast mass located 11:00. Time out was observed to verify the patient's identity and correct location of the breast abnormality. The presence of the lesion was confirmed ultrasound and a lateral approach was chosen. The breast was prepped and draped in the usual sterile fashion and 2 cc 1% lidocaine with and without epinephrine was utilized for local anesthesia. A small skin incision was made with a scalpel and a 12gauge needle was introduced into the breast under direct sonographic guidance. The needle was placed into to the mass. A total of 3 core samples were obtained. The mass appeared to decrease in size possibly consistent with cyst rupture. The specimens were placed in formalin and forwarded to the pathology department. A post biopsy marking clip was placed. Post biopsy mammographic images were obtained. Upon completion of the procedure, compression was applied to the biopsy site until all appreciable bleeding subsided and a sterile dressing was applied. Post biopsy instructions were reviewed with the patient by our clinical breast imaging staff. A written copy of these instructions was also given to the patient. The patient tolerated the procedure well and no immediate complications occurred. SUMMARY: 12 gauge ultrasound guided core biopsy of a 0.7 cm left breast mass located 11:00. A post biopsy marking clip was placed. Pathology results are pending. Pathology: Fibroadenoma. Negative for atypia or malignancy. Result is concordant. Recommendation: 6-month follow-up targeted bilateral breast ultrasound and 6-month follow-up breast MRI. _ Physician Order Diagnostic 6 Month follow up Mammogram with Breast Ultrasound if needed. Diagnosis: Abnormal Mammogram follow-up 11/25/2024 10:[address] Lucina Ramirez MD on us Lucina Ramirez MD IMG US ORDERABLES Final Res ult * Tissue Pathology Exam (11/08/2024 10:35 AM EDT) Case Report Surgical Pathology Report Case: [id number] Authorizing Provider: Lucina Ramirez MD Collected: 11/08/2024 10:35 AM Ordering Location: [facility] Received: 11/08/2024 12:08 PM [facility] [address] Pathologist: Pedro Wray MD Specimen: Breast, Left, Left breast 6:00 9mm mass 11/11/2024 10:25 AM EDT [facility] Clinical Information Breast 6:00 9 mm mass 11/11/2024 10:25 AM EDT [facility] Final Diagnosis LEFT BREAST, 6:00, BIOPSY: 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 11/11/2024 10:25 AM EDT [facility] Gross Description 1. Breast, Left. Received in formalin labeled left breast 6:00 ultrasound biopsy is a 1.2 x 1 x 0.3 cm aggregate of yellow-pink fibrofatty breast tissue fragments placed in formalin at 1035 on 11/08/2024, now submitted in block 1A. The cold ischemic time is less than 60 minutes, total time in formalin is greater than 6 and less than 72 hours. HDM 11/11/2024 10:25 AM EDT [facility] Microscopic Description The slides are reviewed and demonstrate histopathologic features supporting the above rendered diagnosis. 11/11/2024 10:25 AM EDT [facility] Tissue Left breast structure / Unknown Collection / Unknown 11/08/2024 10:35 AM EDT 11/08/2024 12:08 PM EDT us Lucina Ramirez MD PATHOLOGY/CYTOLOGY ORDERABL ES Final Result [facility]
[address] [place] [address], documented in this encounter Visit Diagnoses Diagnosis Breast cancer screening, high risk patient Screening mammogram for high-risk patient Abnormal magnetic resonance imaging of breast documented in this encounter Administered Medications Inactive Administered Medications - up to 3 most recent administrations Medication Order MAR Action Action Date Dose Rate Site lidocaine (XYLOCAINE) 1 % injection 5 mL 5 mL, Injection, Once, On Mon11/08/24 at 0941, For 1 dose Given 11/08/2024 10:30 AM EDT 1 mL lidocaine 1% - EPINEPHrine 1:263573 (XYLOCAINE W/EPI) 1 %-1:596530 injection 10 mL 10 mL, Injection, Once, On Mon11/08/24 at 0941, For 1 dose Given 11/08/2024 10:30 AM EDT 1 mL documented in this encounter Care Teams Hemmer Chainstitch Relationship Specialty Start Date End Date Cristela Ceja APRN [facility] [place] [address] [place] [address] PCP - General Nurse Practitioner 05/19/23 documented as of this encounter
--- OUTSIDE RECORDS SUMMARY | 2024-11-08 09:37 | XMS_ITS | Encounter Summary ---
Author Organization [facility] Address [address] [place] [address] Care Team Providers Care Gastrointestinal Technician Name Role Phone Cristela Ceja APRN Primary Care Provider [phone] Reason for Referral * Diagnostic Imaging (Routine) - Pending Review Specialty Diagnoses / Procedures Referred By [facility] Referred To Contact Radiology Diagnoses Breast cancer screening, high risk patient Abnormal magnetic resonance imaging of breast Procedures US Guided Breast Biopsy With & Without Device Each Additional Rita Araya APRN [address] [facility] [address] [place] [address] Phone: tel: fax: Referral ID Status Reason Start Date Expiration Date V isits Requested Visits Authorized Pending Review 11/08/2024 02/07/2026 1 1 Reason for Visit * Diagnostic Imaging (Routine) - Pending Review Specialty Diagnoses / Procedures Referred By [facility] Referred To Contact Radiology Diagnoses Breast cancer screening, high risk patient Abnormal magnetic resonance imaging of breast Procedures US Guided Breast Biopsy With & Without Device Each Additional Rita Araya APRN [address] [facility] [address] [place] [address] Phone: tel: fax: Referral ID Status Reason Start Date Expiration Date V isits Requested Visits Authorized Pending Review 11/08/2024 02/07/2026 1 1 Encounter Details Date Type Department Care Team (Latest Contact Info) Description 11/08/2024 9:37 AM EDT - 11/08/2024 11:59 PM EDT Hospital Encounter [facility] [address] [place] [address] Breast cancer screening, high risk [...] Description 03/13/2025 11:15 AM EST Office Visit [facility] [address] [facility] [address] [place] [phone] Alexey Lee MD [address] [facility] [address] [place] [phone] 04/21/2025 10:20 AM EST Appointment [facility] [address] [place] [phone] 08/29/2025 9:30 AM EDT Office Visit [address] [phone] Rita Araya APRN [address] [facility] [address] [place] [address] documented as of this encounter Procedures Procedure Name Priority Date/Time Associated Diagnosis Comments US GUIDED BREAST BIOPSY W WO DEVICE EACH ADDITIONAL Routine 11/08/2024 11:05 AM EDT Breast cancer screening, high risk patient Abnormal magnetic resonance imaging of breast TISSUE PATHOLOGY EXAM Routine 11/08/2024 10:43 AM EDT documented in this encounter Results * US Guided Breast Biopsy With & Without Device Each Additional (11/08/2024 11:05 AM EDT) Anatomical Region Laterality Modality Breast [...] Ramirez MD on us Lucina Ramirez MD IM US ORDERABLES Final Res ult * Tissue Pathology Exam (11/08/2024 10:43 AM EDT) Case Report Surgical Pathology Report Case: [id number] Authorizing Provider: Lucina Ramirez MD Collected: 11/08/2024 10:43 AM Ordering Location: [facility] Received: 11/08/2024 12:09 PM [facility] [address] Pathologist: Pedro Wray MD Specimen: Breast, Left, Left breast 11:00 7mm mass 11/11/2024 10:25 AM EDT [facility] Clinical Information Breast cancer screening, high risk patient, abnormal MRI, left breast 11:00 7 mm mass 11/11/2024 10:25 AM EDT [facility] Final Diagnosis LEFT BREAST, 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 11/11/2024 10:25 AM EDT [facility] Gross Description 1. Breast, [...] 72 hours. HDM 11/11/2024 10:25 AM EDT [facility] Microscopic Description The slides are reviewed and demonstrate histopathologic features supporting the above rendered diagnosis. 11/11/2024 10:25 AM EDT [facility] Tissue Left breast structure / Unknown Collection / Unknown 11/08/2024 10:43 AM EDT 11/08/2024 12:09 PM EDT us Lucina Ramirez MD PATHOLOGY/CYTOLOGY ORDERABL ES Final Result [facility]
[address] [place] [address], documented in this encounter Visit Diagnoses Diagnosis [...] EDT 1 mL lidocaine 1% - EPINEPHrine 1:612864 (XYLOCAINE W/EPI) 1 %-1:584298 injection 10 mL 10 mL, Injection, Once, On Mon11/08/24 at 0943, For 1 dose Given 11/08/2024 10:38 AM EDT 1 mL documented in this encounter Care Teams Gastrointestinal Technician Relationship Specialty Start Date End Date Cristela Ceja APRN [address] [facility] [address] [facility] [place] [address] PCP - General Nurse Practitioner 05/19/23 documented as of this encounter
--- OUTSIDE RECORDS SUMMARY | 2024-11-08 09:42 | XMS_ITS | Encounter Summary ---
Author Organization [facility] Address [address] [place] [address] Care Team Providers Care Nurse Aide Name Role Phone Cristela Ceja APRN Primary Care Provider [phone] Reason for Referral * Diagnostic Imaging (Routine) - Pending Review Specialty Diagnoses / Procedures Referred By Contac t Referred To Contact Radiology Diagnoses Breast cancer screening, high risk patient Abnormal magnetic resonance imaging of breast Procedures Mammo Post Device Placement Left Rita Araya APRN [address] [facility] [address] [place] [address] Phone: tel: fax: Referral ID Status Reason Start Date Expiration Date V isits Requested Visits Authorized [id number] Pending Review 11/08/2024 02/07/2026 1 1 Reason for Visit * Diagnostic Imaging (Routine) - Pending Review Specialty Diagnoses / Procedures Referred By Contandrew t Referred To Contact Radiology Diagnoses Breast cancer screening, high risk patient Abnormal magnetic resonance imaging of breast Procedures Mammo Post Device Placement Left Rita Araya APRN [address] [facility] [address] [place] [address] Phone: tel: fax: Referral ID Status Reason Start Date Expiration Date V isits Requested Visits Authorized Pending Review 11/08/2024 02/07/2026 1 1 Encounter Details Date Type Department Care Team (Latest Contact Info) Description 11/08/2024 9:42 AM EDT - 11/08/2024 11:59 PM EDT Hospital Encounter [facility] [address] [place] [address] Breast cancer screening, high risk patient; Abnormal [...] Average Number of Drinks Not on file Frequency of Binge Drinking Not on file [...] Description 03/13/2025 11:15 AM EST Office Visit [facility] [address] [facility] [address] [place] [address] Alexey Lee MD [address] [facility] [address] [place] [address] 04/21/2025 10:20 AM EST Appointment [facility] [address] [place], [place] [address] [address] 08/29/2025 9:30 AM EDT Office Visit [facility] [address] [facility] [address] [place] [address] Rita Araya APRN [address] [facility] [address] [place] [address] documented as of this encounter Procedures Procedure Name Priority Date/Time Associated Diagnosis Comments MAMMO POST DEVICE PLACEMENT LEFT Routine 11/08/2024 11:05 AM EDT Breast cancer screening, high risk patient Abnormal magnetic resonance imaging of breast documented in this encounter Results * Mammo Post Device Placement Left (11/08/2024 11:05 AM EDT) Anatomical Region Laterality Modality Breast Left Mammography 11/08/2024 11:0 7 AM EDT Narrative 11/25/2024 [...] MD on us Lucina Ramirez MD IMG MAMMOGRAPHY ORDERABLES Final Result documented in this encounter Visit Diagnoses Diagnosis Breast cancer screening, high risk patient Screening mammogram for high-risk patient Abnormal magnetic resonance imaging of breast documented in this encounter Care Teams Nurse Aide Relationship Specialty Start Date End Date Cristela Ceja APRN [address] [place] [address] PCP - General Nurse Practitioner 05/19/23 documented as of this encounter
[2024-11-22 18:12] LABS: 25-OH Vitamin D, Total 43.2 ng/mL (30-100)
[2024-11-22 18:38] LABS: Alanine Aminotransferase 20 U/L (12-78); Albumin Level 3.8 g/dl (3.5-5.0); Albumin/Globulin Ratio 1.4 (1.1-1.8); Alkaline Phosphatase 86 U/L (38-126); Anion Gap 12.4 mEq/L (5-15); Aspartate Amino Transferase 24 U/L (14-36); Bilirubin,Total 0.4 mg/dl (0.2-1.3); Blood Urea Nitrogen 8 mg/dl (7-17); Calcium 9.4 mg/dl (8.4-10.2); Carbon Dioxide 28 mmol/L (22.0-30.0); Chloride 104 mmol/L (98-107); Estimated Glomerular Filt Rate 54 ml/min (>60); GFR (African American) 66 ML/MIN (>60); Globulin 2.8 g/dL (1.3-3.2); Glucose 84 mg/dl (74-100); Potassium 3.4 mmoL/L (3.5-5.1); Sodium 141 mmol/L (136-145); Total Protein,Serum 6.6 g/dl (6.3-8.2)
[2024-11-22 19:09] LABS: Creatinine,Serum 1.10 mg/dl (0.52-1.04)
--- OUTSIDE RECORDS SUMMARY | 2024-11-25 12:21 | XMS_ITS | Clinical Summary ---
Author Organization [facility] Address [address] [place] [address] Care Team Providers Care Commodity Director Name Role Phone Cristela Ceja APRN Primary Care Provider [phone] Allergies No known active allergies Medications FLUoxetine [...] 11/08/2024 11/08/2024 Ended lidocaine 1% - EPINEPHrine 1:380008 (XYLOCAINE W/EPI) 1 %-1:005326 injection 10 mL 10 mL IJ Once 11/08/2024 11/08/2024 Ended lidocaine (XYLOCAINE) 1 % injection 5 mL 5 mL IJ Once 11/08/2024 11/08/2024 Ended lidocaine 1% - EPINEPHrine 1:935972 (XYLOCAINE W/EPI) 1 %-1:487489 injection 10 mL 10 mL IJ Once 11/08/2024 11/08/2024 Ended Active Problems Problem Noted Date Diagnosed Date At high risk for breast cancer 08/30/2024 Encounters Date Type Department Care Team Description 11/11/2024 Telephone [facility] [address] [address] Gina Mills RN 11/08/2024 9:42 AM EDT - 11/08/2024 11:59 PM EDT Hospital Encounter [facility] [address] [address] Breast cancer screening, high risk patient; Abnormal magnetic resonance imaging of breast Discharge Disposition: Home or Self Care 11/08/2024 9:37 AM EDT - 11/08/2024 11:59 PM EDT Hospital Encounter [facility] [address] UL[address] [address] Breast cancer screening, high risk patient; Abnormal magnetic resonance imaging of breast Discharge Disposition: Home or Self Care 11/08/2024 8:07 AM EDT - 11/08/2024 11:59 PM EDT Hospital Encounter [facility] [address] UL[address] [address] Breast cancer screening, high risk patient; Abnormal magnetic resonance imaging of breast Discharge Disposition: Home or Self Care 11/08/2024 8:06 AM EDT - 11/08/2024 11:59 PM EDT Hospital Encounter [facility] [address] [address] Breast cancer screening, high risk patient; Abnormal magnetic resonance imaging of breast Discharge Disposition: Home or Self Care 11/08/2024 Travel 10/15/2024 Telephone [facility] MRI AT [address] [address] Stephanie Serna 10/11/2024 8:22 AM EDT - 10/11/2024 11:59 PM EDT Hospital Encounter [facility] MRI AT [address] [address] Rita Araya APRN At high risk for breast cancer Discharge Disposition: Home or Self Care 10/11/2024 Travel 09/12/2024 Patient rounding ([facility]) [facility] [address] [facility] [address] [place] [address] Roshni Stokes 09/09/2024 10:30 AM EDT Office Visit [facility] [address] [facility] [address] [place] [address] Alexey Lee MD II (idiopathic intracranial hypertension) (Primary Dx); Migraine without aura and without status migrainosus, not intractable 09/09/2024 Travel 08/30/2024 10:00 AM EDT Office Visit [facility] [address] [facility] [address] [place] [address] Rita Araya APRN At high risk for [...] Description 03/13/2025 11:15 AM EST Office Visit [facility] [address] [facility] [address] [place] [address] Alexey Lee MD [address] [facility] [address] [place] [address] 04/21/2025 10:20 AM EST Appointment [place] [address] [place] [address] 08/29/2025 9:30 AM EDT Office Visit [facility] [address] [facility] [address] [place] [address] Rita Araya APRN [address] [facility] [address] [place] [address] Health Maintenance Due Date Last Done Comments [...] patient Abnormal magnetic resonance imaging of breast MAMMO POST DEVICE PLACEMENT LEFT Routine 11/08/2024 11:05 AM EDT Breast cancer screening, high risk patient Abnormal magnetic resonance imaging of breast US GUIDED BREAST BIOPSY W WO DEVICE [...] Recently Relevant to Health Maintenance Results * US Guided Breast Biopsy With [...] Ramirez MD on Lucina Ramirez MD IMG US ORDERABLES Final Res ult * Mammo Post Device Placement Left (11/08/2024 [...] MD IMG MAMMOGRAPHY ORDERABLES Final Result * US Guided Breast Biopsy With & [...] included. Case Report Surgical Pathology Report Case: [id number] Authorizing Provider: Lucina Ramirez MD Collected: 11/08/2024 10:43 AM Ordering Location: [facility] Received: 11/08/2024 12:09 PM BREAST CENTER [address] ULTRASOUND Pathologist: Pedro Wray MD Specimen: Breast, Left, Left breast 11:00 7mm mass 11/11/2024 10:25 AM EDT [facility] Clinical Information Breast cancer screening, high risk patient, abnormal MRI, left breast 11:00 7 mm mass 11/11/2024 10:25 AM EDT [facility] Final Diagnosis LEFT BREAST, 11:00, 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 11/11/2024 10:25 AM EDT [facility] Gross Description 1. Breast, Left. [...] 72 hours. HDM 11/11/2024 10:25 AM EDT [facility] Microscopic Description The slides are reviewed and demonstrate histopathologic features supporting the above rendered diagnosis. 11/11/2024 10:25 AM EDT [facility] Tissue Left breast structure / Unknown Collection / Unknown 11/08/2024 10:43 AM EDT 11/08/2024 12:09 PM EDT us Lucina Ramirez MD PATHOLOGY/CYTOLOGY ORDERABL ES Final Result [facility]
[address] [place] [address], * (ABNORMAL) Mammo Diagnostic Digital Tomosynthesis Left [...] images were also obtained. A CAD system (Pixplit) was utilized for data analysis. This examination [...] axillary adenopathy is appreciated. us Rita Araya PEDIATRIC SPEECH LANGUAGE PATHOLOGIST IMG MRI ORDERABLES Final R esult * LIQUID-BASED PAP SMEAR WITH HPV GENOTYPING IF ASCUS (FRANKIE,COR,MAD) (08/09/2022 5:56 PM EDT) Reference Lab Report [facility] [address] [place] [address] or [phone] Hernan Nielsen M.D., Pressed Or Blown Glass Worker PATIENT NAME LABORATORY NO. [address] TORI ROSAS. [id number] AGE SEX SSN CLIENT REF # [id number] 41 1980 F [id number] [id number] REQUESTING Hitesh [place] [address] ESEQUIEL TELLES DATE COLLECTED DATE RECEIVED DATE [...] significance on cytologic smear of cervix (ASC-US) ACDS BLOCK 1 OPERATOR: SHREYA SHARIF (ASCP) CPT CODES: 30922 08/12/2022 5:42 AM EDT [facility] ThinPrep Vial Cervix uteri structure / Unknown Collection / Unknown 08/09/2022 5:56 PM EDT 08/09/2022 5:56 PM EDT us Esequiel Telles MD PATHOLOGY/CYTOLOGY ORDERABLES F inal Result [facility]
[address] [place] [address], * SCANNED - PAP SMEAR (06/25/2021) us Esequiel Telles MD CHART REVIEW TABS Final Resu lt from Last 3 Months or Most Recently Relevant to Health Maintenance Insurance [facility] PPO Care Teams Commodity Director Relationship Specialty Start Date End Date Cristela Ceja APRN [address] [place] [address] PCP - General Nurse Practitioner 05/19/23
--- OUTSIDE RECORDS SUMMARY | 2024-11-25 12:21 | XMS_ITS | Encounter Summary ---
Author Organization [facility] Address [address] [place] [address] Care Team Providers Care Film Developing Machine Operator Name Role Phone Cristela Ceja JESSY Primary Care Provider [phone] Encounter Details Date Type Department Care Team [...] Office Visit [facility]UR[facility] [address] [facility] [address] [place] [address] Alexey Lee MD [address] [facility] [address] [place] [address] 04/21/2025 10:20 AM EST Appointment [facility] [place] [address] 08/29/2025 9:30 AM EDT Office Visit [facility] [address] [facility] [address] [place] [address] Rita Araya APRN [address] [facility] [address] [place] [address] documented as of this encounter Visit Diagnoses Not on filedocumented in this encounter Care Teams Film Developing Machine Operator Relationship Specialty Start Date End Date Cristela Ceja APRN [address] [place] [address] PCP - General Nurse Practitioner 05/19/23 documented as of this encounter
--- OUTSIDE RECORDS SUMMARY | 2024-11-25 12:21 | XMS_ITS | Data Portability ---
Author Organization [facility] ARY Duff [facility] [facility] Address [address] [facility] [address] [place] [address] Care Team Providers Care Buyer Assistant Name Role Phone TOBIAS LEMONSA Primary Care [...] med changes 3. No changes in management [email or web address] Not available 11/09/2021 06:12:51 03/21/2022 03/21/2022 1. [...] Follow-up in 6 months, sooner if needed. [email or web address] Not available 03/21/2022 21:57:48 05/17/2022 05/17/2022 1. [...] 3 refills 2. Recheck in 1 year [email or web address] Not available 08/10/2022 14:02:32 05/16/2023 05/16/2023 Assessment: [...] year, may need each 6 months. DB Not available 05/16/2023 17:54:06 10/17/2023 10/17/2023 42 [...] 4 mg disintegrat ing tablet 2023 024 [employer] [address] [place], [address], 4 09:31:44 ondansetron 4 mg disintegrat ing tablet 2023 024 [email or web address] [facility] [employer] [address] [facility], [place], [address], 4 07:54:18 eletriptan 40 mg tablet 2022 023 [employer] [address] [facility], [place], [address], 3 08:48:28 Patient TargetsNo targets recorded. Patient Instructions Encounter Date Encounter Id Patient Instructions Last Modified By Organization Details Last Modified Time 11/08/2021 [id number] Body Mass Index: Care Instructions- Not available 11/08/2021 08:57:22 05/16/2023 [id number] Body Mass Index: Care Instructions- [email or web address] Not available 05/16/2023 17:59:22 Reason for Referral None Reported. 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 9 10:23:31 Problem Notes None recorded. Procedures Surgical History Date Name Laterality Status Provider Name and Address Organization Details Recorded Time Tonsillectomy completed Regla Negra [facility] 05/16/2023 09:48:02 myringotomy and insertion of tympanic ventilation tube completed Regla Negra [facility] 05/16/2023 09:48:13 Caesarean Section completed Christopher rios [facility] 06/14/2016 12:11:04 Imaging Results None recorded. [...] Updated DateTime 4 154.94 cm 30.5 kg/m2 21359.1 7 g 72 /min 97 % 97 % 122/84 mm[Hg] Regla Negra [facility] 4 09:49:31 Date Recorded Body height Body mass index (BMI) Body weight Systolic And Diastolic Provider Name and Address Organization Details Last Updated DateTime 05/17/2022 154.94 cm 30.1 kg/m2 16501.89 g 128/86 mm[Hg] [facility] 05/17/2022 08:30:35 Date Recorded Body height Body mass index (BMI) Body weight Heart rate Oxygen saturation Oxygen saturation in Arterial blood by Pulse oximetry Systolic And Diastolic Provider Name and Address Organization Details Last Updated DateTime 4 154.94 cm 32.5 kg/m2 85396.5 9 g 71 /min 96 % 96 % 110/72 mm[Hg] Regla Negra [facility] 4 09:10:08 Date Recorded Body height Body mass index (BMI) Body weight Provider Name and Address Organization Details Last Updated DateTime 11/08/2021 154.94 cm 32.1 kg/m2 15594.7 g Jenny Navarro [facility] 11/08/2021 08:21:54 Date Recorded Body height Body mass index (BMI) Body weight Systolic And Diastolic Provider Name and Address Organization Details Last Updated DateTime 03/21/2022 154.94 cm 31 kg/m2 90629.85 g 124/80 mm[Hg] [facility] 03/21/2022 09:34:43 Social History Question Answer Notes LastModified by Organizat ion Details LastModified Time Tobacco Smoking Status Current Every Day [facility]/14/2020 09:40:48 What Is Your Level Of Caffeine Consumption? Moderate [email or web address] Information not available 06/14/2016 How Much Tobacco Do You Chew? None [email or web address] Information not available 07/30/2018 Live Alone Or With Others? With Others Information not available 02/05/2019 Marital Status Informatio n not available 02/05/2019 What Was The Date Of Your Most Recent Tobacco Screening? 10/17/2023 Information not available 10/17/2023 At What Age Did You Start Smoking Tobacco? 16 Information not available 10/17/2023 How Much Tobacco Do You Smoke? 1 PPD [email or web address] Information not available 10/14/2020 Has Tobacco Cessation Counseling Been Provided? Yes [email or web address] Information not available 09/04/2017 On What Date Was Tobacco Cessation Counseling Provided? 07/30/2018 [email or web address] Information not available 07/30/2018 Sex: Unknown Functional Status Question Answer Note LastModified by Organizat ion Details LastModified Time What is your level of alcohol consumption? Moderate [email or web address] Information not available 06/14/2016 Do you or [...] Unspecified Relation Family history of malignant neoplasm [email or web address] Not available 2016 12:10:03 Unspecified Relation Diabetes mellitus [email or web address] Not available 2016 12:10:10 Unspecified Relation Heart disease [email or web address] Not available 2016 12:10:20 Unspecified Relation Hypertensive disorder [email or web address] Not available 2016 12:10:28 Unspecified Relation Family history of stroke [email or web address] Not available 2017 11:12:55 Medical History Condition Response Diabetes N Coronary Artery Disease N Other N Thyroid Disease N Congestive Heart Failure (CHF) N Gallbladder Disease N Stroke N Diverticulitis N COPD N Asthma N Crohn's Disease N Colon Polyps N Liver Disease N Heart Attack (HI) N Heart Disease N Hypertension N Kidney Disease N Gynecological HistoryNo gynecological history recorded. Obstetrics History GPAL:G 0 P 0 0 0 0 Past Encounters Encounter ID Performer Location Encounter Start Date Encounter Closed Date Diagnosis/Indication Diagnosis SNOMED-CT Code Diagnosis ICD10 Code Diagnosis Note [id number] EZEQUIEL PURI MD NEUROLOGY [place] [facility] [address] [place] [address] 06/15/2016 15:55:15 06/15/2016 16:50:55 Headache 65525099 R51 Benign int racranial hypertension 12590081 G93.2 Long-term drug therapy 651622579 Z79.323 [id number] EZEQUIEL PURI MD NEUROLOGY [place] [facility] [address] [place] [address] 2 09/19/2016 09:35:48 09/19/2016 10:47:53 Headache 32514900 R51 Benign int racranial hypertension 76855999 G93.2 Long-term drug therapy 053855631 Z79.899 Cigarette smoker 8836458 7 F17.978 [id number] EZEQUIEL PURI MD NEUROLOGY [place] [facility] [address] [place] [address] 02/07/2017 14:47:51 02/07/2017 15:30:54 Benign intracranial hypertension 12725469 G93.2 Long-term drug therapy 649061810 Z79.291 [id number] EZEQUIEL PURI MD NEUROLOGY [place] [facility] [address] [place] [address] 06/19/2017 11:07:19 06/19/2017 12:05:17 Migraine without aura 71911363 G43.009 Benign int racranial hypertension 13736316 G93.2 Long-term drug therapy 953095781 Z79.170 [id number] EZEQUIEL PURI MD NEUROLOGY [place] [facility] [address] [place] [address] 2 09/04/2017 14:43:14 09/04/2017 16:17:11 Benign intracranial hypertension 66750208 G93.2 Tobacco user 742075008 Z 72.0 Migraine without aura 56 134757 G43.878 [id number] EZEQUIEL PURI MD NEUROLOGY [place] [facility] [address] [place] [address] 03/12/2018 14:32:27 03/12/2018 15:29:47 Optic disc edema 635628008 H47.10 Migraine without aura 56 858204 G43.009 Benign int racranial hypertension 00141747 G93.2 Obesity 324021717 E66.9 [id number] EZEQUIEL PURI MD NEUROLOGY [place] [facility] [address],[place] [place] [address] 2 07/30/2018 12:38:59 07/30/2018 13:49:31 Headache 02576101 R51 Migraine without aura 56 075431 G43.009 Benign int racranial hypertension 25493877 G93.2 Cigarette smoker 8601854 7 F17.210 Body mass index 30+ - obesity 049439281 Z68.32 [id number] EZEQUIEL PURI MD NEUROLOGY [place] [facility] [address] [place] [address] 2 10/09/2018 14:57:51 10/09/2018 16:19:18 Migraine without aura 55395425 G43.009 Benign int racranial hypertension 47866512 G93.2 Visual disturbance 99424 001 H53.9 [id number] EZEQUIEL PURI MD NEUROLOGY [place] [facility] [address] [place] [address] 1 02/05/2019 10:31:19 02/05/2019 10:51:42 Migraine 94928547 G43.582 [id number] EZEQUIEL PURI MD [facility]OLOGY [place] [facility] [address] [place] [address] 1 10/14/2019 10:42:51 10/14/2019 11:38:32 Migraine 12108854 G43.909 Long-term drug therapy 871136218 Z79.002 [id number] EZEQUEIL PURI MD NEUROLOGY [place] [facility] [address] [place] [address] 1 10/14/2020 09:30:51 10/14/2020 11:22:18 Migraine 16491147 G43.909 Benign int racranial hypertension 44164059 G93.2 Headache 39826263 R51.9 [id number] EZEQUIEL PURI MD [facility]UROLOGY [place] [facility] [address] [place] [address] 1 03/23/2021 09:28:34 03/23/2021 10:48:51 Migraine 80421630 G43.909 Headache 50950867 R51.9 Benign int racranial hypertension 17901609 G93.2 History of idiopathic intracranial hypertension 6091340683 6881903 Z86.69 [id number] EZEQUIEL PURI MD [facility]UROLOGY [place] [facility] [address] [place] [address] 1 05/13/2021 14:22:37 05/13/2021 16:07:59 Migraine 24997983 G43.495 [id number] EZEQUIEL PURI MD [facility]UROLOGY [place] [facility] [address] [place] [address] 1 08/10/2021 15:24:35 08/10/2021 16:45:07 Migraine 13403556 G43.491 [id number] EZEQUIEL PURI MD [facility]UROLOGY [place] [facility] [address] [place] [address] 1 11/08/2021 08:06:20 11/08/2021 11:47:09 Migraine 75617270 G43.909 Benign int racranial hypertension 49894827 G93.2 Body mass index 30+ - obesity 932856472 Z68.32 Moderate s moker (20 or less per day) 23502334 F17.210 [id number] EZEQUIEL PURI MD [facility]OLOGY [place] [facility] [address] [place] [address] 1 03/21/2022 09:25:45 03/21/2022 11:02:08 Migraine 53552336 G43.909 Benign int racranial hypertension 27544165 G93.2 Insomnia 130979638 G47.0 0 Heavy ciga rette smoker (20-39 cigs/day) 978241121 Z72.0 [id number] EZEQUIEL PURI MD [facility]OLOGY [place] [facility] [address] [place] [address] 1 05/17/2022 08:24:31 05/17/2022 15:31:09 Migraine 77759208 G43.909 Benign int racranial hypertension 96474106 G93.2 [id number] EZEQUIEL PURI MD NEUROLOGY [place] [facility] [address] [place] [address] 05/16/2023 09:37:24 05/18/2023 04:59:55 Migraine 48533752 G43.909 Benign int racranial hypertension 21553661 G93.2 Tinnitus 12214539 H93.19 Long-term current use of drug therapy 399968939 Z79.899 Body mass index 30+ - obesity 654787479 Z68.32 Z68.30 Heavy ciga rette smoker (20-39 cigs/day) 013937921 Z72.0 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 [id number] TOAN CLEMENTE PA-C NEUROLOGY [place] [facility] [address] [place] [address] 10/17/2023 08:59:22 10/18/2023 05:10:56 Migraine 96092669 G43.909 Health Concerns Section Related Observation LastModified by Organization Detai ls LastModified Time None Recorded Concern Status LastModified by Organization Details LastModified Time None Recorded Advance Directives Directive None Recorded Payers Insurance Date Sequence Insurance Name Policy Number Policy Barbosa Covered Member ID Barbosa Member ID Guarantor Name 03/21/2022 1 [place] [id number] Tori Killian Rajat [id number] Tori Killian Rajat 04/13/2024 1 [place] [id number] Tori Killian Rajat [id number] Tori Killian Earl OBGyn Episode No OBEpisode recorded.
--- OUTSIDE RECORDS SUMMARY | 2024-11-25 12:21 | XMS_ITS | Encounter Summary ---
Author Organization [facility] Address [address] [place] [address] Care Team Providers Care Factory Helper Name Role Phone Marcial Cristela JESSY Primary Care Provider [phone] Encounter Details Date Type Department Care Team (Late st Contact Info) Description 11/11/2024 Telephone [place] [id number] Gina Mills RN Social History Tobacco Use [...] EST Office Visit [facility] [address] [facility] [address] [place] [address] Alexey Lee MD [address] [facility] [address] [place] [address] 04/21/2025 10:20 AM EST Appointment [facility] [place] [address] 08/29/2025 9:30 AM EDT Office Visit [facility] [address] [facility] [address] [place] [address] Rita Araya APRN [address] [facility] [address] [place] [address] documented as of this encounter Visit Diagnoses Not on filedocumented in this encounter Care Teams Factory Helper Relationship Specialty Start Date End Date Cristela Ceja APRN [address] [place] [address] PCP - General Nurse Practitioner 05/19/23 documented as of this encounter
--- OUTSIDE RECORDS SUMMARY | 2024-11-25 12:22 | XMS_ITS | Encounter Summary ---
Author Organization [facility] Address [address] [place] [address] Care Team Providers Care Public Health Registrar Name Role Phone Cristela Ceja JESSY Primary Care Provider [phone] Encounter Details Date Type Department Care Team [...] AM EST Office Visit [facility] NE[facility] [address] [facility] [address] [place] [address] Alexey Lee MD [address] [facility] [address] [place] [address] 04/21/2025 10:20 AM EST Appointment [facility] [place] [address] 08/29/2025 9:30 AM EDT Office Visit [facility] [address] [facility] [address] [place] [address] Rita Araya APRN [address] [facility] [address] [place] [address] documented as of this encounter Visit Diagnoses Not on filedocumented in this encounter Care Teams Public Health Registrar Relationship Specialty Start Date End Date Cristela Ceja APRN [address] [place] [address] [place] [address] PCP - General Nurse Practitioner 05/19/23 documented as of this encounter
--- OUTSIDE RECORDS SUMMARY | 2024-11-25 12:22 | XMS_ITS | Encounter Summary ---
Author Organization [facility] Address [address] [place] [address] Care Team Providers Care Metal Cans Supervisor Name Role Phone Cristela Ceja APRN Primary Care Provider [phone] Encounter Details Date Type Department Care Team (Late st Contact Info) Description 10/15/2024 Telephone [facility] MRI AT [address] [address] Stephanie Serna Social History Tobacco Use Types Packs/Day Years [...] Office Visit [facility] [address] [facility] [address] [place] [address] Alexey Lee MD [address] [facility] [address] [place] [address] 04/21/2025 10:20 AM EST Appointment [facility] [address] [place] [address] 08/29/2025 9:30 AM EDT Office Visit [facility] [address] [facility] [address] [place] [address] Rita Araya APRN [address] [facility] [address] [place] [address] documented as of this encounter Visit Diagnoses Not on filedocumented in this encounter Care Teams Metal Cans Supervisor Relationship Specialty Start Date End Date Cristela Ceja APRN [address] [place] [address] [place] [address] PCP - General Nurse Practitioner 05/19/23 documented as of this encounter
[2024-11-25 14:11] LABS: Calcium, Ionized 4.9 mg/dL (4.5-5.6)
== END 2024-11-22 23:59 | disposition home or self-care (01) ==
LOC: LAB.DROPOF 11-25 12:18
PROVIDERS: PCP Nurse Practitioner Family; Visit Provider Nurse Practitioner Family
DX: E83.52 Hypercalcemia (principal); E87.6 Hypokalemia; R60.9 Edema, unspecified
CPT/HCPCS: 80053; 82306; 82330; 83970

== ENCOUNTER 2024-12-16 16:39 | Outpatient (CLI) | payer BC, SELFPAY ==
--- OUTSIDE RECORDS SUMMARY | 2024-11-08 08:06 | XMS_ITS | Encounter Summary ---
Author Organization [facility] Address [address] [place] [address] Care Team Providers Care Clinical Resource Manager Name Role Phone Cristela Ceja APRN Primary Care Provider [phone] Reason for Referral * Diagnostic Imaging (Routine) - Closed Specialty Diagnoses / Procedures Referred By Saumya huizar Referred To Contact Radiology Diagnoses Breast cancer screening, high risk patient Abnormal magnetic resonance imaging of breast Procedures Mammo Diagnostic Digital Tomosynthesis Left With CAD Rita Araya APRN [address] [facility] [address] [place] [address] Phone: tel: fax: Referral ID Status Reason [...] Left With CAD Rita Araya APRN [address] [facility] [address] [place] [address] Phone: tel: fax: Referral ID Status Reason Start Date Expiration Date Visits Re quested Visits Authorized Closed 10/15/2024 01/14/2026 1 1 Encounter Details Date Type Department Care Team (Latest Contact Info) Description 11/08/2024 8:06 AM EDT - 11/08/2024 11:59 PM EDT Hospital Encounter [facility] [address] [place] [address] Breast cancer screening, high risk patient; Abnormal [...] Description 03/13/2025 11:15 AM EST Office Visit [facility] [address] [facility] [address] [place] [address] Alexey Lee MD [address] [facility] [address] [place] [address] 04/21/2025 10:20 AM EST Appointment [facility] [address] [place] [phone] 08/29/2025 9:30 AM EDT Office Visit [facility] [address] [facility] [address] [place] [phone] Rita Araya APRN [address] [facility] [address] [place] [address] documented as of this encounter Procedures Procedure [...] change in scanning and measurement technique. us Lucian Ramirez MD IMG MAMMOGRAPHY ORDERABLES Final Result documented in this encounter Visit Diagnoses Diagnosis Breast cancer screening, high risk patient Screening mammogram for high-risk patient Abnormal magnetic resonance imaging of breast documented in this encounter Care Teams Clinical Resource Manager Relationship Specialty Start Date End Date Marcial JESSY Archibald [address] [place] [address] PCP - General Nurse Practitioner 05/19/23 documented as of this encounter
--- OUTSIDE RECORDS SUMMARY | 2024-11-08 08:07 | XMS_ITS | Encounter Summary ---
Author Organization [facility] Address [address] [place] [address] Care Team Providers Care Support Teacher Name Role Phone Cristela Ceja APRN Primary Care Provider [phone] Reason for Referral * Diagnostic Imaging (Routine) - Closed Specialty Diagnoses / Procedures Referred By Saumya huizar Referred To Contact Radiology Diagnoses Breast cancer screening, high risk patient Abnormal magnetic resonance imaging of breast Procedures US Guided Breast Biopsy With & Without Device initial Rita Araya APRN [address] [facility] [address] [place] [address] Phone: tel: fax: Referral ID Status Reason Start Date Expiration Date Visits Re quested Visits Authorized Closed 10/15/2024 01/14/2026 1 1 Reason for Visit * Diagnostic Imaging (Routine) - Closed Specialty Diagnoses / Procedures [facility] Referred To Contact Radiology Diagnoses Breast cancer screening, high risk patient Abnormal magnetic resonance imaging of breast Procedures US Guided Breast Biopsy With & Without Device initial Rita Araya APRN [address] [facility] [address] [place] [address] Phone: tel: fax: Referral ID Status Reason Start Date Expiration Date Visits Re quested Visits Authorized [id number] Closed 10/15/2024 01/14/2026 1 1 Encounter Details Date Type Department Care Team (Latest Contact Info) Description 11/08/2024 8:07 AM EDT - 11/08/2024 11:59 PM EDT Hospital Encounter [facility] [address] [place] [address] Breast cancer screening, high risk [...] Description 03/13/2025 11:15 AM EST Office Visit [facility] NEUR[facility] [address] [facility] [address] [place] [phone] Alexey Lee MD [address] [facility] [address] [place] [address] 04/21/2025 10:20 AM EST Appointment [facility] [address] [place] [phone] 08/29/2025 9:30 AM EDT Office Visit [facility] [address] [facility] [address] [place] [phone] Rita Araya APRN [address] [facility] [address] [place] [address] documented as of this encounter Procedures Procedure [...] Ramirez MD on us Lucina Ramirez MD [facility] [place] ORDERABLES Final Res ult * Tissue Pathology Exam (11/08/2024 10:35 AM EDT) Case Report Surgical Pathology Report Case: [id number] Authorizing Provider: Lucina Ramirez MD Collected: 11/08/2024 10:35 AM Ordering Location: [facility] Received: 11/08/2024 12:08 PM [facility] [address] Pathologist: Pedro Wray MD Specimen: Breast, Left, Left breast 6:00 9mm mass 11/11/2024 10:25 AM EDT [facility] Clinical Information Breast 6:00 9 mm mass 11/11/2024 10:25 AM EDT [facility] Final Diagnosis LEFT BREAST, 6:00, BIOPSY: 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 on 11/11/24. 11/11/2024 10:25 AM EDT [facility] Gross Description 1. Breast, Left. [...] 72 hours. HDM 11/11/2024 10:25 AM EDT [facility] Microscopic Description The slides are reviewed and demonstrate histopathologic features supporting the above rendered diagnosis. 11/11/2024 10:25 AM EDT [facility] Tissue Left breast structure / Unknown Collection / Unknown 11/08/2024 10:35 AM EDT 11/08/2024 12:08 PM EDT us Lucina Ramirez MD PATHOLOGY/CYTOLOGY ORDERABL ES Final Result [facility]
[address] [place] [address], documented in this encounter Visit Diagnoses Diagnosis [...] EDT 1 mL lidocaine 1% - EPINEPHrine 1:694258 (XYLOCAINE W/EPI) 1 %-1:187793 injection 10 mL 10 mL, Injection, Once, On Mon11/08/24 at 0941, For 1 dose Given 11/08/2024 10:30 AM EDT 1 mL documented in this encounter Care Teams Support Teacher Relationship Specialty Start Date End Date Cristela Ceja JESSY [address] [place] [address] PCP - General Nurse Practitioner 05/19/23 documented as of this encounter
--- OUTSIDE RECORDS SUMMARY | 2024-11-08 09:37 | XMS_ITS | Encounter Summary ---
Author Organization [facility] Address [address] [place] [address] Care Team Providers Care Biology Professor Name Role Phone Cristela Ceja APRN Primary Care Provider [phone] Reason for Referral * Diagnostic Imaging (Routine) - Pending Review Specialty Diagnoses / Procedures Referred By [facility] Referred To Contact Radiology Diagnoses Breast cancer screening, high risk patient Abnormal magnetic resonance imaging of breast Procedures US Guided Breast Biopsy With & Without Device Each Additional Rita Araya APRN [address] [facility] [address] [place] [address] Phone: tel: fax: Referral ID Status Reason Start Date Expiration Date V isits Requested Visits Authorized Pending Review 11/08/2024 02/07/2026 1 1 Reason for Visit * Diagnostic Imaging (Routine) - Pending Review Specialty Diagnoses / Procedures Referred By [facility] Referred To Contact Radiology Diagnoses Breast cancer screening, high risk patient Abnormal magnetic resonance imaging of breast Procedures US Guided Breast Biopsy With & Without Device Each Additional Rita Araya APRN [address] [facility] [address] [place] [address] Phone: tel: fax: Referral ID Status Reason Start Date Expiration Date V isits Requested Visits Authorized Pending Review 11/08/2024 02/07/2026 1 1 Encounter Details Date Type Department Care Team (Latest Contact Info) Description 11/08/2024 9:37 AM EDT - 11/08/2024 11:59 PM EDT Hospital Encounter [facility] [address] [place] [address] Breast cancer screening, high risk [...] Description 03/13/2025 11:15 AM EST Office Visit [facility] [address] [facility] [address] [place] [phone] Alexey Lee MD [address] [facility] [address] [place] [phone] 04/21/2025 10:20 AM EST Appointment [facility] [address] [place] [phone] 08/29/2025 9:30 AM EDT Office Visit [address] [phone] Rita Araya APRN 3000 [facility] [address] [place] [address] documented as of this encounter Procedures Procedure [...] Ramirez MD on us Lucina Ramirez MD [facility] ORDERABLES Final Res ult * Tissue Pathology Exam (11/08/2024 10:43 AM EDT) Case Report Surgical Pathology Report Case: [id number] Authorizing Provider: Lucina Ramirez MD Collected: 11/08/2024 10:43 AM Ordering Location: [facility] Received: 11/08/2024 12:09 PM [facility] [address] Pathologist: Pedro Wray MD Specimen: Breast, Left, Left breast 11:00 7mm mass 11/11/2024 10:25 AM EDT [facility] Clinical Information Breast cancer screening, high risk patient, abnormal MRI, left breast 11:00 7 mm mass 11/11/2024 10:25 AM EDT [facility] Final Diagnosis LEFT BREAST, 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 11/11/2024 10:25 AM EDT [facility] Gross Description 1. Breast, Left. [...] 72 hours. HDM 11/11/2024 10:25 AM EDT [facility] Microscopic Description The slides are reviewed and demonstrate histopathologic features supporting the above rendered diagnosis. 11/11/2024 10:25 AM EDT [facility] Tissue Left breast structure / Unknown Collection / Unknown 11/08/2024 10:43 AM EDT 11/08/2024 12:09 PM EDT us Lucina Ramirez MD PATHOLOGY/CYTOLOGY ORDERABL ES Final Result [facility]
[address] [place] [address], documented in this encounter Visit Diagnoses Diagnosis [...] EDT 1 mL lidocaine 1% - EPINEPHrine 1:436171 (XYLOCAINE W/EPI) 1 %-1:600022 injection 10 mL 10 mL, Injection, Once, On Mon11/08/24 at 0943, For 1 dose Given 11/08/2024 10:38 AM EDT 1 mL documented in this encounter Care Teams Biology Professor Relationship Specialty Start Date End Date Cristela Ceja APRN [address] [place] [address] PCP - General Nurse Practitioner 05/19/23 documented as of this encounter
--- OUTSIDE RECORDS SUMMARY | 2024-11-08 09:42 | XMS_ITS | Encounter Summary ---
Author Organization [facility] Address [address] [place] [address] Care Team Providers Care Creative Resource Manager Name Role Phone Cristela Ceja APRN Primary Care Provider [phone] Reason for Referral * Diagnostic Imaging (Routine) - Pending Review Specialty Diagnoses / Procedures Referred By Contac t Referred To Contact Radiology Diagnoses Breast cancer screening, high risk patient Abnormal magnetic resonance imaging of breast Procedures Mammo Post Device Placement Left Rita Araya APRN [address] [facility] [address] [place] [address] Phone: tel: fax: Referral ID Status Reason Start Date Expiration Date V isits Requested Visits Authorized [id number] Pending Review 11/08/2024 02/07/2026 1 1 Reason for Visit * Diagnostic Imaging (Routine) - Pending Review Specialty Diagnoses / Procedures Referred By Contandrew t Referred To Contact Radiology Diagnoses Breast cancer screening, high risk patient Abnormal magnetic resonance imaging of breast Procedures Mammo Post Device Placement Left Rita Araya APRN [address] [facility] [address] [place] [address] Phone: tel: fax: Referral ID Status Reason Start Date Expiration Date V isits Requested Visits Authorized Pending Review 11/08/2024 02/07/2026 1 1 Encounter Details Date Type Department Care Team (Latest Contact Info) Description 11/08/2024 9:42 AM EDT - 11/08/2024 11:59 PM EDT Hospital Encounter [facility] [address] [place] [address] Breast cancer screening, high risk patient; Abnormal [...] Office Visit [facility] [address] [facility] [address] [place] [address] Alexey Lee MD [address] [facility] [address] [place] [address] 04/21/2025 10:20 AM EST Appointment [facility] [address] [place], [place] [address] [address] 08/29/2025 9:30 AM EDT Office Visit [facility] [address] [facility] [address] [place] [address] Rita Araya APRN [address] [facility] [address] [place] [address] documented as of this encounter Procedures Procedure [...] breast documented in this encounter Care Teams Creative Resource Manager Relationship Specialty Start Date End Date Cristela Ceja APRN [address] [place] [address] PCP - General Nurse Practitioner 05/19/23 documented as of this encounter
[2024-12-16 20:29] LABS: Chloride 95 mmol/L (98-107); Sodium 135 mmol/L (136-145)
[2024-12-16 20:32] LABS: Calcium 9.5 mg/dl (8.4-10.2); Glucose 109 mg/dl (74-100)
[2024-12-16 20:48] LABS: Blood Urea Nitrogen 11 mg/dl (7-17); Creatinine,Serum 1.20 mg/dl (0.52-1.04); Estimated Glomerular Filt Rate 49 ml/min (>60); GFR (African American) 59 ML/MIN (>60)
[2024-12-16 20:49] LABS: Anion Gap 14.8 mEq/L (5-15); Carbon Dioxide 28 mmol/L (22.0-30.0)
[2024-12-16 21:16] LABS: Potassium 2.8 mmoL/L (3.5-5.1)
--- OUTSIDE RECORDS SUMMARY | 2024-12-18 09:52 | XMS_ITS | Clinical Summary ---
Author Organization [facility] Address [address] [place] [address] Care Team Providers Care Skill Training Program Coordinator Name Role Phone Cristela Ceja APRN Primary Care Provider [phone] Allergies No known active allergies Medications FLUoxetine [...] repeat in 2 hours if necessary Active Active Problems Problem Noted Date Diagnosed Date At high risk for breast cancer 08/30/2024 Encounters Date Type Department Care Team Description 11/11/2024 Telephone [facility] [address] [place] [address] Gina Mills RN 11/08/2024 9:42 AM EDT - 11/08/2024 11:59 PM EDT Hospital Encounter [facility] [address] [place] [address] Breast cancer screening, high risk patient; Abnormal magnetic resonance imaging of breast Discharge Disposition: Home or Self Care 11/08/2024 9:37 AM EDT - 11/08/2024 11:59 PM EDT Hospital Encounter [facility] [address] [facility] [address] [place] [address] Breast cancer screening, high risk patient; Abnormal magnetic resonance imaging of breast Discharge Disposition: Home or Self Care 11/08/2024 8:07 AM EDT - 11/08/2024 11:59 PM EDT Hospital Encounter [facility] [facility] [address] [place] [address] Breast cancer screening, high risk patient; Abnormal magnetic resonance imaging of breast Discharge Disposition: Home or Self Care 11/08/2024 8:06 AM EDT - 11/08/2024 11:59 PM EDT Hospital Encounter [facility] [address] [facility] [address] [place] [address] Breast cancer screening, high risk patient; Abnormal magnetic resonance imaging of breast Discharge Disposition: Home or Self Care 11/08/2024 Travel 10/15/2024 Telephone PSYCHIATRIC MRI AT [address] [address] Stephanie Serna 10/11/2024 8:22 AM EDT - 10/11/2024 11:59 PM EDT Hospital Encounter PSYCHIATRIC MRI AT [address] [address] Rita Araya APRN At high risk for breast cancer Discharge Disposition: Home or Self Care 10/11/2024 Travel from Last 3 Months Family History [...] Visit [facility] [address] [facility] [address] [place] [address] Alexey Lee MD [address] [facility] [address] [place] [address] 04/21/2025 10:20 AM EST Appointment [facility] [place] [address] 08/29/2025 9:30 AM EDT Office Visit [facility] [address] [facility] [address] [place] [address] Rita Araya APRN [address] [facility] [address] [place], [place] [id number] Health Maintenance Due Date Last Done Comments [...] Ramirez MD on us Lucina Ramirez MD [facility] ORDERABLES Final Res ult * Mammo [...] included. 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 11/11/2024 10:25 AM EDT [facility] Gross Description 1. Breast, Left. Received [...] 72 hours. HDM 11/11/2024 10:25 AM EDT [facility] Microscopic Description The slides are reviewed and demonstrate histopathologic features supporting the above rendered diagnosis. 11/11/2024 10:25 AM EDT [facility] Tissue Left breast structure / Unknown Collection / Unknown 11/08/2024 10:43 AM EDT 11/08/2024 12:09 PM EDT us Lucina Ramirez MD PATHOLOGY/CYTOLOGY ORDERABL ES Final Result [facility]
[address] [place] [address], * (ABNORMAL) Mammo Diagnostic Digital Tomosynthesis Left [...] the change in scanning and measurement technique. Lucina Ramirez MD IMG MAMMOGRAPHY ORDERABLES Final [...] images were also obtained. A CAD system ([employer]) was utilized for data analysis. This examination [...] No axillary adenopathy is appreciated. Rita Araya MARKETING AUTOMATION ANALYST [facility] MRI ORDERABLES Final R esult * LIQUID-BASED PAP SMEAR WITH HPV GENOTYPING IF ASCUS (FRANKIE,COR,MAD) (08/09/2022 5:56 PM EDT) Reference Lab Report [facility] [address] [place] [address] or [phone] Hernan Nielsen M.D., Operations Manager/Coordinator PATIENT NAME LABORATORY NO. TORI V[facility]SQUEZ. [id number] AGE SEX SSN CLIENT REF # [facility] 41 1980 F [id number] [address] [facility] [id number] REQUESTING MT[place]. [place] [address] ESEQUIEL WALDRON DATE COLLECTED DATE RECEIVED DATE REPORTED 08/09/2022 [...] significance on cytologic smear of cervix (ASC-US) ENROLLMENT MANAGEMENT COORDINATOR: SHREYA SHARIF (ASCP) CPT CODES: [id number] 08/12/2022 5:42 AM EDT [facility] ThinPrep Vial Cervix uteri structure / Unknown Collection / Unknown 08/09/2022 5:56 PM EDT 08/09/2022 5:56 PM EDT us Esequiel Waldron MD PATHOLOGY/CYTOLOGY ORDERABLES F inal Result [facility]
[address] [place] [address], * SCANNED - PAP SMEAR (06/25/2021) us Esequiel Waldron MD CHART REVIEW TABS Final Resu lt from Last 3 Months or Most Recently Relevant to Health Maintenance [facility] P[facility] Care Teams Skill Training Program Coordinator Relationship Specialty Start Date End Date Cristela Ceja APRN [address] [place] [address] [place] [address] PCP - General Nurse Practitioner 05/19/23
--- OUTSIDE RECORDS SUMMARY | 2024-12-18 09:52 | XMS_ITS | Encounter Summary ---
Author Organization [facility] Address [address] [place] [address] Care Team Providers Care Stripper Latex Name Role Phone Cristela Ceja JESSY Primary Care Provider [phone] Encounter Details Date Type Department Care Team [...] Description 03/13/2025 11:15 AM EST Office Visit [facility] [address] [facility] [address] [place] [address] Alexey Lee MD [address] [facility] [address] [place] [address] 04/21/2025 10:20 AM EST Appointment [facility] [place] [address] 08/29/2025 9:30 AM EDT Office Visit [facility] [address] [facility] [address] [place] [address] Rita Araya APRN [address] [facility] [address] [place] [address] documented as of this encounter Visit Diagnoses Not on filedocumented in this encounter Care Teams Stripper Latex Relationship Specialty Start Date End Date Cristela Ceja APRN [address] [place] [address] [place] [address] PCP - General Nurse Practitioner 05/19/23 documented as of this encounter
--- OUTSIDE RECORDS SUMMARY | 2024-12-18 09:52 | XMS_ITS | Encounter Summary ---
Author Organization [facility] Address [address] [place] [address] Care Team Providers Care Sand Technologist Name Role Phone Marcial Cristela JESSY Primary Care Provider [phone] Encounter Details Date Type Department Care Team (Late st Contact Info) Description 11/11/2024 Telephone [place] [phone] Gina Mills RN Social History Tobacco Use [...] AM EST Office Visit [facility] [address] [facility] [address] [place] [address] Alexey Lee MD [address] [facility] [address] [place] [address] 04/21/2025 10:20 AM EST Appointment [facility]5 [place] [address] 08/29/2025 9:30 AM EDT Office Visit [facility] 3000 [facility] [address] [place] [address] Rita Araya APRN 3000 [facility] [address] [place] [address] documented as of this encounter Visit Diagnoses Not on filedocumented in this encounter Care Teams Sand Technologist Relationship Specialty Start Date End Date Cristela Ceja APRN [address] [place] [address] PCP - General Nurse Practitioner 05/19/23 documented as of this encounter
== END 2024-12-16 23:59 | disposition home or self-care (01) ==
LOC: LAB.DROPOF 12-18 09:41
PROVIDERS: PCP Nurse Practitioner Family; Visit Provider Nurse Practitioner Family
DX: E83.52 Hypercalcemia (principal); E87.6 Hypokalemia; N17.9 Acute kidney failure, unspecified
CPT/HCPCS: 80048

== ENCOUNTER 2024-12-20 16:04 | Outpatient (CLI) | payer BC, SELFPAY ==
--- OUTSIDE RECORDS SUMMARY | 2024-11-08 08:06 | XMS_ITS | Encounter Summary ---
Author Organization [facility] Address [address] [place] [address] Care Team Providers Care Wafer Fabrication Technician Name Role Phone Cristela Ceja APRN Primary Care Provider [phone] Reason for Referral * Diagnostic Imaging (Routine) - Closed Specialty Diagnoses / Procedures Referred By Saumya huizar Referred To Contact Radiology Diagnoses Breast cancer screening, high risk patient Abnormal magnetic resonance imaging of breast Procedures Mammo Diagnostic Digital Tomosynthesis Left With CAD Riat Araya APRN [address] [facility] [address] [place] [address] Phone: tel: fax: Referral ID Status Reason Start Date Expiration Date Visits Re quested Visits Authorized Closed 10/15/2024 01/14/2026 1 1 Reason for Visit * Diagnostic Imaging (Routine) - Closed Specialty Diagnoses / Procedures Referred By Samuya huizar Referred To Contact Radiology Diagnoses Breast cancer screening, high risk patient Abnormal magnetic resonance imaging of breast Procedures Mammo Diagnostic Digital Tomosynthesis Left With CAD Rita Araya APRN [address] [facility] [address] [place] [address] Phone: tel: fax: Referral ID Status Reason Start Date Expiration Date Visits Re quested Visits Authorized Closed 10/15/2024 01/14/2026 1 1 Encounter Details Date Type Department Care Team (Latest Contact Info) Description 11/08/2024 8:06 AM EDT - 11/08/2024 11:59 PM EDT Hospital Encounter [facility] [address] [place] [address] Breast cancer screening, high risk patient; Abnormal [...] 11:15 AM EST Office Visit [facility] [address] [facility] [address] [place] [address] Alexey Lee MD [address] [facility] [address] [place] [address] 04/21/2025 10:20 AM EST Appointment [facility] [address] [place] [phone] 08/29/2025 9:30 AM EDT Office Visit [facility] [address] [facility] [address] [place] [address] Rita Araya APRN [address] [facility] [address] [place] [address] documented as of this encounter Procedures Procedure [...] breast documented in this encounter Care Teams Wafer Fabrication Technician Relationship Specialty Start Date End Date Marcial JESSY Archibald [address] [place] [address] PCP - General Nurse Practitioner 05/19/23 documented as of this encounter
--- OUTSIDE RECORDS SUMMARY | 2024-11-08 08:07 | XMS_ITS | Encounter Summary ---
Author Organization [facility] Address [address] [place] [address] Care Team Providers Care Spreading Machine Operator Name Role Phone Cristela Ceja APRN Primary Care Provider [phone] Reason for Referral * Diagnostic Imaging (Routine) - Closed Specialty Diagnoses / Procedures Referred By Saumya huizar Referred To Contact Radiology Diagnoses Breast cancer screening, high risk patient Abnormal magnetic resonance imaging of breast Procedures US Guided Breast Biopsy With & Without Device initial Rita Araya APRN [address] [facility] [address] [place] [address] Phone: tel: fax: Referral ID Status Reason Start Date Expiration Date Visits Re quested Visits Authorized Closed 10/15/2024 01/14/2026 1 1 Reason for Visit * Diagnostic Imaging (Routine) - Closed Specialty Diagnoses / Procedures [facility] Referred To Contact Radiology Diagnoses Breast cancer screening, high risk patient Abnormal magnetic resonance imaging of breast Procedures US Guided Breast Biopsy With & Without Device initial Rita Araya APRN [address] [facility] [address] [place] [address] Phone: tel: fax: Referral ID Status Reason Start Date Expiration Date Visits Re quested Visits Authorized [id number] Closed 10/15/2024 01/14/2026 1 1 Encounter Details Date Type Department Care Team (Latest Contact Info) Description 11/08/2024 8:07 AM EDT - 11/08/2024 11:59 PM EDT Hospital Encounter [facility] [address] [place] [address] Breast cancer screening, high risk [...] Visit [facility] NEUR[facility] [address] [address] [place] [phone] Alexey Lee MD [address] [place] [address] 04/21/2025 10:20 AM EST Appointment [facility] [address] [place] [phone] 08/29/2025 9:30 AM EDT Office Visit [facility] [address] [facility] [address] [place] [phone] Rita Araya APRN [address] [facility] [address] [place] [address] documented as of this encounter Procedures Procedure [...] Ramirez MD on us Lucina Ramirez MD [facility] Final Res ult * Tissue Pathology Exam (11/08/2024 10:35 AM EDT) Case Report Surgical Pathology Report Case: [id number] Authorizing Provider: Lucina Ramirez MD Collected: 11/08/2024 10:35 AM Ordering Location: [facility] Received: 11/08/2024 12:08 PM [facility] [address] Pathologist: Pedro Wray MD Specimen: Breast, Left, Left breast 6:00 9mm mass 11/11/2024 10:25 AM EDT [facility] Clinical Information Breast 6:00 9 mm mass 11/11/2024 10:25 AM EDT [facility] Final Diagnosis LEFT BREAST, 6:00, BIOPSY: 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 11/11/2024 10:25 AM EDT [facility] Gross Description 1. Breast, Left. [...] 72 hours. HDM 11/11/2024 10:25 AM EDT [facility] Microscopic Description The slides are reviewed and demonstrate histopathologic features supporting the above rendered diagnosis. 11/11/2024 10:25 AM EDT [facility] Tissue Left breast structure / Unknown Collection / Unknown 11/08/2024 10:35 AM EDT 11/08/2024 12:08 PM EDT us Lucina Ramirez MD PATHOLOGY/CYTOLOGY ORDERABL ES Final Result [facility]
[address] [place] [address], documented in this encounter Visit Diagnoses Diagnosis [...] EDT 1 mL lidocaine 1% - EPINEPHrine 1:003009 (XYLOCAINE W/EPI) 1 %-1:696988 injection 10 mL 10 mL, Injection, Once, On Mon11/08/24 at 0941, For 1 dose Given 11/08/2024 10:30 AM EDT 1 mL documented in this encounter Care Teams Spreading Machine Operator Relationship Specialty Start Date End Date Cristela Ceja JESSY [address] [place] [address] PCP - General Nurse Practitioner 05/19/23 documented as of this encounter
--- OUTSIDE RECORDS SUMMARY | 2024-11-08 09:37 | XMS_ITS | Encounter Summary ---
Author Organization [facility] Address [address] [place] [address] Care Team Providers Care Tennis Court Attendant Name Role Phone Cristela Ceja APRN Primary Care Provider [phone] Reason for Referral * Diagnostic Imaging (Routine) - Pending Review Specialty Diagnoses / Procedures Referred By [facility] Referred To Contact Radiology Diagnoses Breast cancer screening, high risk patient Abnormal magnetic resonance imaging of breast Procedures US Guided Breast Biopsy With & Without Device Each Additional Rita Araya APRN [address] [facility] [address] [place] [address] Phone: tel: fax: Referral ID Status Reason Start Date Expiration Date V isits Requested Visits Authorized Pending Review 11/08/2024 02/07/2026 1 1 Reason for Visit * Diagnostic Imaging (Routine) - Pending Review Specialty Diagnoses / Procedures Referred By [facility] Referred To Contact Radiology Diagnoses Breast cancer screening, high risk patient Abnormal magnetic resonance imaging of breast Procedures US Guided Breast Biopsy With & Without Device Each Additional Rita Araya APRN [address] [facility] [address] [place] [address] Phone: tel: fax: Referral ID Status Reason Start Date Expiration Date V isits Requested Visits Authorized Pending Review 11/08/2024 02/07/2026 1 1 Encounter Details Date Type Department Care Team (Latest Contact Info) Description 11/08/2024 9:37 AM EDT - 11/08/2024 11:59 PM EDT Hospital Encounter [facility] [address] [place] [address] Breast cancer screening, high risk [...] 11:15 AM EST Office Visit [facility] [address] [facility] [address] [place] [phone] Alexey Lee MD [address] [facility] [address] [place] [phone] 04/21/2025 10:20 AM EST Appointment [facility] [address] [place] [phone] 08/29/2025 9:30 AM EDT Office Visit [address] [phone] Rita Araya APRN 3000 [facility] [address] [place] [address] documented as of this encounter Procedures Procedure [...] Ramirez MD on us Lucina Ramirez MD [facility] ORDERABLES Final Res ult * Tissue Pathology Exam (11/08/2024 10:43 AM EDT) Case Report Surgical Pathology Report Case: [id number] Authorizing Provider: Lucina Ramirez MD Collected: 11/08/2024 10:43 AM Ordering Location: [facility] Received: 11/08/2024 12:09 PM [facility] [address] Pathologist: Pedro Wray MD Specimen: Breast, Left, Left breast 11:00 7mm mass 11/11/2024 10:25 AM EDT [facility] Clinical Information Breast cancer screening, high risk patient, abnormal MRI, left breast 11:00 7 mm mass 11/11/2024 10:25 AM EDT [facility] Final Diagnosis LEFT BREAST, 11:00, 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 11/11/2024 10:25 AM EDT [facility] Gross Description 1. Breast, Left. [...] 72 hours. HDM 11/11/2024 10:25 AM EDT [facility] Microscopic Description The slides are reviewed and demonstrate histopathologic features supporting the above rendered diagnosis. 11/11/2024 10:25 AM EDT [facility] Tissue Left breast structure / Unknown Collection / Unknown 11/08/2024 10:43 AM EDT 11/08/2024 12:09 PM EDT us Lucina Ramirez MD PATHOLOGY/CYTOLOGY ORDERABL ES Final Result [facility]
[address] [place] [address], documented in this encounter Visit Diagnoses Diagnosis [...] EDT 1 mL lidocaine 1% - EPINEPHrine 1:981511 (XYLOCAINE W/EPI) 1 %-1:853788 injection 10 mL 10 mL, Injection, Once, On Mon11/08/24 at 0943, For 1 dose Given 11/08/2024 10:38 AM EDT 1 mL documented in this encounter Care Teams Tennis Court Attendant Relationship Specialty Start Date End Date Cristela Ceja APRN [address] [place] [address] PCP - General Nurse Practitioner 05/19/23 documented as of this encounter
--- OUTSIDE RECORDS SUMMARY | 2024-11-08 09:42 | XMS_ITS | Encounter Summary ---
Author Organization [facility] Address [address] [place] [address] Care Team Providers Care National Investigative Producer Name Role Phone Cristela Ceja APRN Primary Care Provider [phone] Reason for Referral * Diagnostic Imaging (Routine) - Pending Review Specialty Diagnoses / Procedures Referred By Contac t Referred To Contact Radiology Diagnoses Breast cancer screening, high risk patient Abnormal magnetic resonance imaging of breast Procedures Mammo Post Device Placement Left Rita Araya APRN [address] [facility] [address] [place] [address] Phone: tel: fax: Referral ID Status Reason Start Date Expiration Date V isits Requested Visits Authorized [id number] Pending Review 11/08/2024 02/07/2026 1 1 Reason for Visit * Diagnostic Imaging (Routine) - Pending Review Specialty Diagnoses / Procedures Referred By Contandrew t Referred To Contact Radiology Diagnoses Breast cancer screening, high risk patient Abnormal magnetic resonance imaging of breast Procedures Mammo Post Device Placement Left Rita Araya APRN [address] [facility] [address] [place] [address] Phone: tel: fax: Referral ID Status Reason Start Date Expiration Date V isits Requested Visits Authorized Pending Review 11/08/2024 02/07/2026 1 1 Encounter Details Date Type Department Care Team (Latest Contact Info) Description 11/08/2024 9:42 AM EDT - 11/08/2024 11:59 PM EDT Hospital Encounter [facility] [address] [place] [address] Breast cancer screening, high risk patient; Abnormal [...] Description 03/13/2025 11:15 AM EST Office Visit [facility] [address] [facility] [address] [place] [address] Alexey Lee MD [address] [facility] [address] [place] [address] 04/21/2025 10:20 AM EST Appointment [facility] [address] [place], [place] [address] [address] 08/29/2025 9:30 AM EDT Office Visit [facility] [address] [facility] [address] [place] [address] Rita Araya APRN [address] [facility] [address] [place] [address] documented as of this encounter Procedures Procedure [...] AM by Dr. Lucina Ramirez MD on Lucina Ramirez MD IMG MAMMOGRAPHY ORDERABLES Final Result documented in this encounter Visit Diagnoses Diagnosis Breast cancer screening, high risk patient Screening mammogram for high-risk patient Abnormal magnetic resonance imaging of breast documented in this encounter Care Teams National Investigative Producer Relationship Specialty Start Date End Date Cristela Ceja APRN [address] [place] [address] PCP - General Nurse Practitioner 05/19/23 documented as of this encounter
[2024-12-20 17:57] LABS: Chloride 98 mmol/L (98-107); Sodium 138 mmol/L (136-145)
[2024-12-20 18:00] LABS: Anion Gap 12.8 mEq/L (5-15); Blood Urea Nitrogen 13 mg/dl (7-17); Calcium 9.7 mg/dl (8.4-10.2); Carbon Dioxide 30 mmol/L (22.0-30.0); Creatinine,Serum 1.20 mg/dl (0.52-1.04); Estimated Glomerular Filt Rate 49 ml/min (>60); GFR (African American) 59 ML/MIN (>60); Glucose 108 mg/dl (74-100)
[2024-12-20 20:28] LABS: Potassium 2.8 mmoL/L (3.5-5.1)
--- OUTSIDE RECORDS SUMMARY | 2024-12-23 13:18 | XMS_ITS | Encounter Summary ---
Author Organization [facility] Address [address] [place] [address] Care Team Providers Care Chronometer Adjuster Name Role Phone Marcial Cristela JESSY Primary Care Provider [phone] Encounter Details Date Type Department Care Team (Late st Contact Info) Description 11/11/2024 Telephone [place] [phone] Gina Mills RN Social History Tobacco Use [...] Description 03/13/2025 11:15 AM EST Office Visit [facility] NEUROLOGY 2101 [facility] [address] [place] [address] Alexey Lee MD [address] [facility] [address] [place] [address] 04/21/2025 10:20 AM EST Appointment [facility]5 [place] [address] 08/29/2025 9:30 AM EDT Office Visit [facility] 3000 [facility] [address] [place] [address] Rita Araya APRN 3000 [facility] [address] [place] [address] documented as of this encounter Visit Diagnoses Not on filedocumented in this encounter Care Teams Chronometer Adjuster Relationship Specialty Start Date End Date Cristela Ceja APRN [address] [place] [address] PCP - General Nurse Practitioner 05/19/23 documented as of this encounter
--- OUTSIDE RECORDS SUMMARY | 2024-12-23 13:18 | XMS_ITS | Clinical Summary ---
Author Organization [facility] Address [address] [place] [address] Care Team Providers Care Plugger Name Role Phone Cristela Ceja APRN Primary [...] Type Department Care Team Description 11/11/2024 Telephone [facility] [address] [place] [address] Gina Mills RN 11/08/2024 9:42 AM EDT - 11/08/2024 11:59 PM EDT Hospital Encounter [facility] [address] [place] [address] Breast cancer screening, high risk patient; Abnormal magnetic resonance imaging of breast Discharge Disposition: Home or Self Care 11/08/2024 9:37 AM EDT - 11/08/2024 11:59 PM EDT Hospital Encounter [facility] [place] 1760 UL[address] 1760 [facility] 401 [place] [address] Breast cancer screening, high risk patient; Abnormal magnetic resonance imaging of breast Discharge Disposition: Home or Self Care 11/08/2024 8:07 AM EDT - 11/08/2024 11:59 PM EDT Hospital Encounter [facility] [place] 1760 UL[address] 1760 [facility] [address] [address] [place] [address] Breast cancer screening, high risk patient; Abnormal magnetic resonance imaging of breast Discharge Disposition: Home or Self Care 11/08/2024 8:06 AM EDT - 11/08/2024 11:59 PM EDT Hospital Encounter [facility] [address] [facility] [address] [address] [place] [address] Breast cancer screening, high risk patient; Abnormal magnetic resonance imaging of breast Discharge Disposition: Home or Self Care 11/08/2024 Travel 10/15/2024 Telephone [facility] AT [address] [phone] Stephanie Serna 10/11/2024 8:22 AM EDT - 10/11/2024 11:59 PM EDT Hospital Encounter [facility] AT [address] [address] Rita Araya APRN At high risk for [...] Description 03/13/2025 11:15 AM EST Office Visit [facility] [address]01 [facility] 204 [place] [address] Alexey Lee MD 2101 [facility] 204 [place] [address] 04/21/2025 10:20 AM EST Appointment [facility] [place] [address] 08/29/2025 9:30 AM EDT Office Visit [facility] 3000 [facility] [address] [place] [address] Rita Araya APRN 3000 [facility] [address] [place], [place] [address] Health Maintenance Due Date Last Done Comments [...] Ramirez MD on us Lucina Ramirez MD [facility] US ORDERABLES Final Res ult * Mammo [...] included. 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 11/11/2024 10:25 AM EDT [facility] Gross Description 1. Breast, Left. Received [...] 72 hours. HDM 11/11/2024 10:25 AM EDT [facility] Microscopic Description The slides are reviewed and demonstrate histopathologic features supporting the above rendered diagnosis. 11/11/2024 10:25 AM EDT [facility] Tissue Left breast structure / Unknown Collection / Unknown 11/08/2024 10:43 AM EDT 11/08/2024 12:09 PM EDT us Lucina Ramirez MD PATHOLOGY/CYTOLOGY ORDERABL ES Final Result [facility]
[address] [place] [address], * (ABNORMAL) Mammo Diagnostic Digital Tomosynthesis Left [...] images were also obtained. A CAD system (fromAtoB) was utilized for data analysis. This examination [...] No axillary adenopathy is appreciated. Rita Araya INFORMATION RESOURCES MANAGER [facility] MRI ORDERABLES Final R esult * LIQUID-BASED PAP SMEAR WITH HPV GENOTYPING IF ASCUS (FRANKIE,COR,MAD) (08/09/2022 5:56 PM EDT) Reference Lab Report [facility] [address] [place] [address] or [phone] Hernan Nielsen M.D., Blood Bank Custodian PATIENT NAME LABORATORY NO. [facility]ORI V[facility]QUE[facility]. [id number] AGE SEX SSN CLIENT REF # [facility] 41 1980 F [id number] [address] [id number] REQUEST[facility] MTavo. [place] [address] ESEQUIEL WALDRON DATE COLLECTED DATE RECEIVED DATE [...] significance on cytologic smear of cervix (ASC-US) QUALITY ANALYST: SHREYA SHARIF (ASCP) CPT CODES: 06556 08/12/2022 5:42 AM EDT [facility] ThinPrep Vial Cervix uteri structure / Unknown Collection / Unknown 08/09/2022 5:56 PM EDT 08/09/2022 5:56 PM EDT us Esequiel Waldron MD PATHOLOGY/CYTOLOGY ORDERABLES F inal Result [facility]
[address] [place] [address], * SCANNED - PAP SMEAR (06/25/2021) us Esequiel Waldron MD CHART REVIEW TABS Final Resu lt from Last 3 Months or Most Recently Relevant to Health Maintenance [facility] PPO Care Teams Plugger Relationship Specialty Start Date End Date Cristela Ceja APRN [address] [place] [address] [place] [address] PCP - General Nurse Practitioner 05/19/23
--- OUTSIDE RECORDS SUMMARY | 2024-12-23 13:18 | XMS_ITS | Encounter Summary ---
Author Organization [facility] Address [address] [place] [address] Care Team Providers Care Senior Wealth Advisor Name Role Phone Cristela Ceja JESSY Primary Care Provider [phone] Encounter Details Date Type Department Care Team [...] Description 03/13/2025 11:15 AM EST Office Visit [facility] NEUROLOGY [address] [facility] 204 [place] [address] Alexey Lee MD [address] [facility] 204 [place] [address] 04/21/2025 10:20 AM EST Appointment [facility] [place] [address] 08/29/2025 9:30 AM EDT Office Visit [facility] 3000 [facility] [address] [place] [address] Rita Araya APRN 3000 [facility] [address] [place] [address] documented as of this encounter Visit Diagnoses Not on filedocumented in this encounter Care Teams Senior Wealth Advisor Relationship Specialty Start Date End Date Cristela Ceja APRN [address] [place] [address] [place] [address] PCP - General Nurse Practitioner 05/19/23 documented as of this encounter
== END 2024-12-20 23:59 | disposition home or self-care (01) ==
LOC: LAB.DROPOF 12-23 13:15
PROVIDERS: PCP Nurse Practitioner Family; Visit Provider Nurse Practitioner Family
DX: E87.6 Hypokalemia (principal)
CPT/HCPCS: 80048

== ENCOUNTER 2024-12-24 15:56 | Emergency (ER) | payer BC, SELFPAY ==
--- OUTSIDE RECORDS SUMMARY | 2024-11-08 08:06 | XMS_ITS | Encounter Summary ---
Author Organization [facility] Address [address] [place] [address] Care Team Providers Care Kiln Setter Name Role Phone Cristela Ceja APRN Primary Care Provider [phone] Reason for Referral * Diagnostic Imaging (Routine) - Closed Specialty Diagnoses / Procedures Referred By Saumya huizar Referred To Contact Radiology Diagnoses Breast cancer screening, high risk patient Abnormal magnetic resonance imaging of breast Procedures Mammo Diagnostic Digital Tomosynthesis Left With CAD Riat Araya APRN [address] [facility] [address] [place] [address] Phone: tel: fax: Referral ID Status Reason [...] Left With CAD Rita Araya APRN [address] [facility] [address] [place] [address] Phone: tel: fax: Referral ID Status Reason Start Date Expiration Date Visits Re quested Visits Authorized Closed 10/15/2024 01/14/2026 1 1 Encounter Details Date Type Department Care Team (Latest Contact Info) Description 11/08/2024 8:06 AM EDT - 11/08/2024 11:59 PM EDT Hospital Encounter [facility] [address] [place] [address] Breast cancer screening, high risk patient; Abnormal [...] Description 03/13/2025 11:15 AM EST Office Visit [facility] [address] [facility] [address] [place] [address] Alexey Lee MD [address] [facility] [address] [place] [address] 04/21/2025 10:20 AM EST Appointment [facility] [address] [place] [phone] 08/29/2025 9:30 AM EDT Office Visit [facility] [address] [facility] [address] [place] [address] Rita Araya APRN [address] [facility] [address] [place] [address] documented as of this encounter Procedures Procedure [...] breast documented in this encounter Care Teams Kiln Setter Relationship Specialty Start Date End Date Marcial JESSY Archibald [address] [place] [address] PCP - General Nurse Practitioner 05/19/23 documented as of this encounter
--- OUTSIDE RECORDS SUMMARY | 2024-11-08 08:07 | XMS_ITS | Encounter Summary ---
Author Organization [facility] Address [address] [place] [address] Care Team Providers Care Infantry Unit Leader Name Role Phone Cristela Ceja APRN Primary Care Provider [phone] Reason for Referral * Diagnostic Imaging (Routine) - Closed Specialty Diagnoses / Procedures Referred By Saumya huizar Referred To Contact Radiology Diagnoses Breast cancer screening, high risk patient Abnormal magnetic resonance imaging of breast Procedures US Guided Breast Biopsy With & Without Device initial Rita Araya APRN [address] [facility] [address] [place] [address] Phone: tel: fax: Referral ID Status Reason Start Date Expiration Date Visits Re quested Visits Authorized Closed 10/15/2024 01/14/2026 1 1 Reason for Visit * Diagnostic Imaging (Routine) - Closed Specialty Diagnoses / Procedures [facility] Referred To Contact Radiology Diagnoses Breast cancer screening, high risk patient Abnormal magnetic resonance imaging of breast Procedures US Guided Breast Biopsy With & Without Device initial Rita Araya APRN [address] [facility] [address] [place] [address] Phone: tel: fax: Referral ID Status Reason Start Date Expiration Date Visits Re quested Visits Authorized [id number] Closed 10/15/2024 01/14/2026 1 1 Encounter Details Date Type Department Care Team (Latest Contact Info) Description 11/08/2024 8:07 AM EDT - 11/08/2024 11:59 PM EDT Hospital Encounter [facility] [address] [place] [address] Breast cancer screening, high risk [...] Description 03/13/2025 11:15 AM EST Office Visit [facility] [address] [facility] [address] [place] [address] Alexey Lee MD [address] [facility] [address] [place] [address] 04/21/2025 10:20 AM EST Appointment [facility] [address] [place] [phone] 08/29/2025 9:30 AM EDT Office [address] [facility] [address] [facility] [address] [place] [phone] Rita Araya APRN [address] [facility] [address] [place] [address] documented as of this encounter Procedures Procedure [...] Ramirez MD on us Lucina Ramirez MD [facility] [place] US ORDERABLES Final Res ult * Tissue Pathology Exam (11/08/2024 10:35 AM EDT) Case Report Surgical Pathology Report Case: [id number] Authorizing Provider: Lucina Ramirez MD Collected: 11/08/2024 10:35 AM Ordering Location: [facility] Received: 11/08/2024 12:08 PM [facility] [address] Pathologist: Pedro Wray MD Specimen: Breast, Left, Left breast 6:00 9mm mass 11/11/2024 10:25 AM EDT [facility] Clinical Information Breast 6:00 9 mm mass 11/11/2024 10:25 AM EDT [facility] Final Diagnosis LEFT BREAST, 6:00, BIOPSY: 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 11/11/2024 10:25 AM EDT [facility] Gross Description 1. Breast, Left. Received [...] 72 hours. HDM 11/11/2024 10:25 AM EDT [facility] Microscopic Description The slides are reviewed and demonstrate histopathologic features supporting the above rendered diagnosis. 11/11/2024 10:25 AM EDT [facility] Tissue Left breast structure / Unknown Collection / Unknown 11/08/2024 10:35 AM EDT 11/08/2024 12:08 PM EDT us Lucina Ramirez MD PATHOLOGY/CYTOLOGY ORDERABL ES Final Result [facility]
[address] [place] [address], documented in this encounter Visit Diagnoses Diagnosis [...] EDT 1 mL lidocaine 1% - EPINEPHrine 1:525682 (XYLOCAINE W/EPI) 1 %-1:033645 injection 10 mL 10 mL, Injection, Once, On Mon11/08/24 at 0941, For 1 dose Given 11/08/2024 10:30 AM EDT 1 mL documented in this encounter Care Teams Infantry Unit Leader Relationship Specialty Start Date End Date Cristela Ceja JESSY [address] [place] [address] [place] [address] PCP - General Nurse Practitioner 05/19/23 documented as of this encounter
--- OUTSIDE RECORDS SUMMARY | 2024-11-08 09:37 | XMS_ITS | Encounter Summary ---
Author Organization [facility] Address [address] [place] [address] Care Team Providers Care Finisher Map And Chart Name Role Phone Cristela Ceja APRN Primary Care Provider [phone] Reason for Referral * Diagnostic Imaging (Routine) - Pending Review Specialty Diagnoses / Procedures Referred By [facility] Referred To Contact Radiology Diagnoses Breast cancer screening, high risk patient Abnormal magnetic resonance imaging of breast Procedures US Guided Breast Biopsy With & Without Device Each Additional Rita Araya APRN [address] [facility] [address] [place] [address] Phone: tel: fax: Referral ID Status Reason Start Date Expiration Date V isits Requested Visits Authorized Pending Review 11/08/2024 02/07/2026 1 1 Reason for Visit * Diagnostic Imaging (Routine) - Pending Review Specialty Diagnoses / Procedures Referred By [facility] Referred To Contact Radiology Diagnoses Breast cancer screening, high risk patient Abnormal magnetic resonance imaging of breast Procedures US Guided Breast Biopsy With & Without Device Each Additional Rita Araya APRN [address] [facility] [address] [place] [address] Phone: tel: fax: Referral ID Status Reason Start Date Expiration Date V isits Requested Visits Authorized Pending Review 11/08/2024 02/07/2026 1 1 Encounter Details Date Type Department Care Team (Latest Contact Info) Description 11/08/2024 9:37 AM EDT - 11/08/2024 11:59 PM EDT Hospital Encounter [facility] [address] [place] [address] Breast cancer screening, high risk [...] Description 03/13/2025 11:15 AM EST Office Visit [facility] [address] [facility] [address] [place] [phone] Alexey Lee MD [address] [facility] [address] [place] [phone] 04/21/2025 10:20 AM EST Appointment [facility] [address] [place] [phone] 08/29/2025 9:30 AM EDT Office Visit [address] [phone] Rita Araya APRN 3000 [facility] [address] [place] [address] documented as of this encounter Procedures Procedure [...] Ramirez MD on us Lucina Ramirez MD [facility] ORDERABLES Final Res ult * Tissue Pathology Exam (11/08/2024 10:43 AM EDT) Case Report Surgical Pathology Report [id number]: [id number] Authorizing Provider: Lucina Ramirez MD Collected: 11/08/2024 10:43 AM Ordering Location: [facility] Received: 11/08/2024 12:09 PM [facility] [address] Pathologist: Pedro Wray MD Specimen: Breast, Left, Left breast 11:00 7mm mass 11/11/2024 10:25 AM EDT [facility] Clinical Information Breast cancer screening, high risk patient, abnormal MRI, left breast 11:00 7 mm mass 11/11/2024 10:25 AM EDT [facility] Final Diagnosis LEFT BREAST, 11:00, 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 on 11/11/24. 11/11/2024 10:25 AM EDT [facility] Gross Description 1. Breast, Left. [...] 72 hours. HDM 11/11/2024 10:25 AM EDT [facility] Microscopic Description The slides are reviewed and demonstrate histopathologic features supporting the above rendered diagnosis. 11/11/2024 10:25 AM EDT [facility] Tissue Left breast structure / Unknown Collection / Unknown 11/08/2024 10:43 AM EDT 11/08/2024 12:09 PM EDT us Lucina Ramirez MD PATHOLOGY/CYTOLOGY ORDERABL ES Final Result [facility]
[address] [place] [address], documented in this encounter Visit Diagnoses Diagnosis [...] EDT 1 mL lidocaine 1% - EPINEPHrine 1:515580 (XYLOCAINE W/EPI) 1 %-1:044532 injection 10 mL 10 mL, Injection, Once, On Mon11/08/24 at 0943, For 1 dose Given 11/08/2024 10:38 AM EDT 1 mL documented in this encounter Care Teams Finisher Map And Chart Relationship Specialty Start Date End Date Cristela Ceja APRN [address] [place] [address] PCP - General Nurse Practitioner 05/19/23 documented as of this encounter
[2024-12-24 16:48] VITALS: BP 129/79; PULSE 66; RESP 17; TEMP 36.9; O2SAT 97; BMI 33.0
--- OUTSIDE RECORDS SUMMARY | 2024-12-24 16:48 | XMS_ITS | Encounter Summary ---
Author Organization [facility] Address [address] [place] [address] Care Team Providers Care Code Enforcement Supervisor Name Role Phone Marcial Cristela JESSY Primary Care Provider [phone] Encounter Details Date Type Department Care Team (Late st Contact Info) Description 11/11/2024 Telephone [place] [phone] Gina Mills RN Social History Tobacco Use [...] Description 03/13/2025 11:15 AM EST Office Visit [facility] NEUR[facility] 2101 [facility] 204 [place] [address] Alexey Lee MD 2101 [facility] 204 [place] [address] 04/21/2025 10:20 AM EST Appointment [facility] [place] [address] 08/29/2025 9:30 AM EDT Office Visit [facility] 3000 [facility] [address] [place] [address] Rita Araya APRN 3000 [facility] [address] [place] [address] documented as of this encounter Visit Diagnoses Not on filedocumented in this encounter Care Teams Code Enforcement Supervisor Relationship Specialty Start Date End Date Cristela Ceja APRN [address] [place] [address] PCP - General Nurse Practitioner 05/19/23 documented as of this encounter
--- OUTSIDE RECORDS SUMMARY | 2024-12-24 16:48 | XMS_ITS | Clinical Summary ---
Author Organization [facility] Address [address] [place] [address] Care Team Providers Care Cable Tender Name Role Phone Cristela Ceja APRN Primary Care Provider [phone] Allergies No known active allergies Medications FLUoxetine [...] Type Department Care Team Description 11/11/2024 Telephone [facility] [address] [place] [address] Gina Mills RN 11/08/2024 9:42 AM EDT - 11/08/2024 11:59 PM EDT Hospital Encounter [facility] [address] [place] [address] Breast cancer screening, high risk patient; Abnormal magnetic resonance imaging of breast Discharge Disposition: Home or Self Care 11/08/2024 9:37 AM EDT - 11/08/2024 11:59 PM EDT Hospital Encounter [facility] 1760 [address] 1760 [facility] 401 [place] [address] Breast cancer screening, high risk patient; Abnormal magnetic resonance imaging of breast Discharge Disposition: Home or Self Care 11/08/2024 8:07 AM EDT - 11/08/2024 11:59 PM EDT Hospital Encounter [facility] 1760 [address] 1760 [facility] [address] [place] [address] Breast cancer screening, high risk patient; Abnormal magnetic resonance imaging of breast Discharge Disposition: Home or Self Care 11/08/2024 8:06 AM EDT - 11/08/2024 11:59 PM EDT Hospital Encounter [facility] 1760 [facility] [address] [place] [address] Breast cancer screening, high risk patient; Abnormal magnetic resonance imaging of breast Discharge Disposition: Home or Self Care 11/08/2024 Travel 10/15/2024 Telephone [facility] AT [address] [address] Stephanie Serna 10/11/2024 8:22 AM EDT - 10/11/2024 11:59 PM EDT Hospital Encounter [facility] AT [address] [address] Rita Araya APRN At high risk for [...] [facility] [address] [place] [address] Alexey Lee MD 2101 [facility] [address] [place] [address] 04/21/2025 10:20 AM EST Appointment [facility] [place] [address] 08/29/2025 9:30 AM EDT Office Visit [facility] 3000 [facility] [address] [place] [address] Rita Araya APRN 3000 [facility] [address] [place], [place] [address] Health Maintenance Due Date Last Done Comments [...] Ramirez MD on us Lucina Ramirez MD [facility] ORDERABLES Final Res ult * Mammo [...] included. 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 11/11/2024 10:25 AM EDT [facility] Gross Description 1. Breast, Left. [...] 72 hours. HDM 11/11/2024 10:25 AM EDT [facility] Microscopic Description The slides are reviewed and demonstrate histopathologic features supporting the above rendered diagnosis. 11/11/2024 10:25 AM EDT [facility] Tissue Left breast structure / Unknown Collection / Unknown 11/08/2024 10:43 AM EDT 11/08/2024 12:09 PM EDT us Lucina Ramirez MD PATHOLOGY/CYTOLOGY ORDERABL ES Final Result [facility]
[address] [place] [address], * (ABNORMAL) Mammo Diagnostic Digital Tomosynthesis Left [...] images were also obtained. A CAD system (Birthday Slam) was utilized for data analysis. This examination [...] No axillary adenopathy is appreciated. Rita Araya REHAB TECHNICIAN [facility] MRI ORDERABLES Final R esult * LIQUID-BASED PAP SMEAR WITH HPV GENOTYPING IF ASCUS (FRANKIE,COR,MAD) (08/09/2022 5:56 PM EDT) Reference Lab Report [facility] [address] [place] [address] or [phone] Hernan Nielsen M.D., Refrigeration Service Inspector PATIENT NAME [facility]AT[facility] NO[facility]OR[facility] V[facility]SQUEZ. [id number] AGE SEX SSN CLIENT REF # [facility] 41 1980 F [id number] [facility] [facility] REQUEST[facility] MTavo. [place] [address] ESEQUIEL WALDRON DATE COLLECTED DATE RECEIVED DATE [...] significance on cytologic smear of cervix (ASC-US) MONORAIL CAR OPERATOR: SHREYA SHARIF (ASCP) CPT CODES: [id number] 08/12/2022 5:42 AM EDT [facility] ThinPrep Vial Cervix uteri structure / Unknown Collection / Unknown 08/09/2022 5:56 PM EDT 08/09/2022 5:56 PM EDT us Esequiel Waldron MD PATHOLOGY/CYTOLOGY ORDERABLES F inal Result [facility]
[address] [place] [address], * SCANNED - PAP SMEAR (06/25/2021) us Esequiel Waldron MD CHART REVIEW TABS Final Resu lt from Last 3 Months or Most Recently Relevant to Health Maintenance [facility] PPO Care Teams Cable Tender Relationship Specialty Start Date End Date Cristela Ceja APRN [address] [place] [address] [place] [address] PCP - General Nurse Practitioner 05/19/23
--- OUTSIDE RECORDS SUMMARY | 2024-12-24 16:48 | XMS_ITS | Encounter Summary ---
Author Organization [facility] Address [address] [place] [address] Care Team Providers Care Membership Assistant Name Role Phone Cristela Ceja JESSY Primary Care Provider [phone] Encounter Details Date Type Department Care Team [...] Description 03/13/2025 11:15 AM EST Office Visit [facility] NEUR[facility]Y [address] [facility] 204 [place] [address] Alexey Lee MD [address] [facility] [address] [place] [address] 04/21/2025 10:20 AM EST Appointment [facility] [place] [address] 08/29/2025 9:30 AM EDT Office Visit [facility] 3000 [facility] [address] [place] [address] Rita Araya APRN [address] [facility] [address] [place] [address] documented as of this encounter Visit Diagnoses Not on filedocumented in this encounter Care Teams Membership Assistant Relationship Specialty Start Date End Date Cristela Ceja APRN [address] [place] [address] [place] [address] PCP - General Nurse Practitioner 05/19/23 documented as of this encounter
--- NOTE | 2024-12-24 16:49 | ED_ITS ---
<Statement entered by Tori Michaud DO - 12/26/24 21:14> I was consulted by the CHUCK, and we discussed the complexity of problems being addressed. I approve the treatment and management plan for this patient's care in the emergency department, thus performing a substantial portion of the medical decision making. Tori Michaud DO Discharge Plan Disposition Patient Disposition: Home, Self-Care Condition: Good Prescriptions Prescriptions: No Action benzoyl peroxide 10 % cleanser 1 applic topical DAILY Qty: 237 5RF atorvastatin 40 mg tablet 80 mg PO DAILY bupropion HCl 300 mg tablet extended release 24 hr 300 mg PO DAILY Qty: 90 3RF (DME) blood-glucose meter Kit See Rx Instructions .ROUTE .MEDSUPPLY Qty: 1 0RF Rx Instructions: As directed hydrochlorothiazide 25 mg tablet 25 mg PO DAILY Qty: 90 3RF eletriptan 40 mg tablet 40 mg PO BID PRN Vraylar 1.5 mg capsule 1.5 mg PO DAILY fluoxetine [Prozac] 40 mg capsule 40 mg PO DAILY Qty: 90 3RF trazodone 50 mg tablet 25 mg PO HS Qty: 45 3RF amlodipine 10 mg tablet 10 mg PO DAILY Qty: 90 3RF (DME) blood-glucose meter [Accu-Chek Guide Glucose Meter] Misc See Rx Instructions .Route Qty: 1 0RF Rx Instructions: As directed (DME) Accu-Chek Guide test strips Strip See Rx Instructions .Route Qty: 100 5RF Rx Instructions: As directed (DME) lancets [Accu-Chek Softclix Lancets] Misc See Rx Instructions .Route Qty: 200 5RF Rx Instructions: As directed potassium chloride [K-Tab] 20 mEq tablet extended release 40 meq PO BID Qty: 120 0RF Referrals Follow up/Referrals: Cristela Ceja APRN [Primary Care Provider, Family Practice] - See instructions Activity Restrictions/Add. Instructions Additional Instructions/Restrictions: Please follow-up in the next 48 to 72 hours to recheck your potassium level with your family physician, please take your potassium supplementation as prescribed starting in the morning. Please return to the emergency department with any worsening signs or symptoms. Clinical Impressions Clinical Impression: Hypokalemia Instructions Patient Instructions: DI for Hypokalemia Print Language Print Language: Scottish Discharge ED Provider: Tori Michaud General Adult HPI General Chief complaint: Weakness Stated complaint: sent by Marcial potassium is low Time Seen by Provider: 12/24/24 16:43 Mode of Arrival: Ambulatory Source of Information: Patient Limitations: No Limitations History of Present Illness HPI narrative: 44-year-old female presents the emergency department for hypokalemia, patient states that she was seen by her PCPs office on Monday potassium level was 2.8, she was prescribed p.o. potassium, she has just started taking this medication today, was unable to shrimp picker until today, appears to be 40 mill equivalents, patient took 2 tablets today, patient has any fever chills chest pain shortness of breath nausea vomiting constipation diarrhea, no cough no congestion, no abdominal pain, no urinary type symptomatology, patient is a current everyday smoker, denies any alcohol or other drug use, initial triage vitals are unremarkable. Other past medical history is consistent with hyperlipidemia, hypertension, migraines, anxiety/depression, T2DM. Of note, patient states that she was instructed to either come to the emergency department or take her potassium medication by her PCP. Please note that above description of symptoms, in this electronic medical record under categorization of recalled from ER triage doctor by RN are reflective of an initial nursing assessment, however, is not reflective of my full history and physical exam that was personally taken and clarified. Consequentially, this preceding description of symptoms, which may include the patient's categorized chief complaint in the EMR, do not reflect my personal clinical impression, and the ultimate description of history of present illness and patient stated complaints should be deferred to this section of the note. Unless stated otherwise or congruent with this section of the note, additional signs, symptoms, or incongruence should be interpreted as inaccurate with my clinical impression. Related Data Home Medications ?Medication ?Instructions ?Recorded ?Confirmed eletriptan 40 mg tablet 40 mg PO BID PRN 05/11/23 cariprazine 1.5 mg capsule 1.5 mg PO DAILY 11/11/24 (Vraylar) Held on 11/11/24. Instructions: Home Medication placed on hold at Doctor's office atorvastatin 40 mg tablet 80 mg PO DAILY 11/14/2411/30 Previous Rx's ?Medication ?Instructions ?Recorded fluoxetine 40 mg capsule (Prozac) 40 mg PO DAILY #90 c aps 02/11/24 benzoyl peroxide 10 % topical 1 applic topical DAILY # 237 grams 05/15/24 cleanser trazodone 50 mg tablet 25 mg (1/2 x 50 mg) PO HS #4 5 tabs 06/14/24 amlodipine 10 mg tablet 10 mg PO DAILY #90 tabs 07/23 blood-glucose meter #1 ea 11/14/24 bupropion HCl 300 mg 24 hr tablet, 300 mg PO DAILY #90 tabs 11/14/24 extended release blood sugar diagnostic (Accu-Chek #100 ea 11/18/24 Guide test strips) blood-glucose meter (Accu-Chek #1 ea 11/18/24 Guide Glucose Meter) lancets (Accu-Chek Softclix #200 ea 11/18/24 Lancets) hydrochlorothiazide 25 mg tablet 25 mg PO DAILY #90 ta bs 11/22/24 potassium chloride 20 mEq 40 meq (2 x 20 mEq) PO BID # 120 12/17/24 tablet,extended release (K-Tab) tabs Allergies Allergy/AdvReac Type Severity Reaction Status Date / Time No Known Allergies Allergy Verified 12/20/24 15:56 [facility] Disclaimer: The information contained in this section may have been updated after the patient was seen, as this information can be updated by other users. Medical History (Updated 12/24/24 @ 18:26 by SHANE Reid) Edema Flu-like symptoms Fever and chills Screening for HIV (human immunodeficiency virus) Encounter for hepatitis C screening test for low risk patient Acne Acute viral syndrome Exposure to 2019 novel coronavirus Establishing care with new doctor, encounter for Follow-up arranged for 6 months Hypomagnesemia Anxiety Hyperlipidemia Ocular migraine Hypertension COVID-19 Contact dermatitis Viral syndrome Upper respiratory infection, viral Bronchitis Encounter for laboratory testing for COVID-19 virus Exposure to COVID-19 virus Laceration Surgical History S/P breast biopsy, left Hx of section Family History Father Diabetes Hypertension Mother Hypertension Social History Smoking Status: Current every day smoker tobacco type: cigarettes packs per day: 1 alcohol intake: never substance use type: denies use current occupational status: employed Travel in the last 8 weeks?: None household members: children caffeine: Yes Have you lived/traveled outside US in past 30 days?: No Contact w/someone who lives/traveled outside US past 30 days?: No Exposure to someone with infectious disease in past 14 days?: No Do you have a fever (greater than 100.4 F or 38 C)?: No Have you tested positive for COVID-19?: No Exposed to someone with COVID-19 in past 14 days?: No Do you have a sore throat?: No Do you have a cough?: No Do you have any weakness?: No Do you have any diarrhea?: No Are you experiencing any unusual bleeding?: No Do you have any muscle aches/pain?: No Do you have any abdominal pain?: No Are you experiencing loss of taste or smell?: No Other Medical History Have you received the Flu Vaccine for this season: No Have you received the Pneumonia Vaccine: No ROS Obtained: Yes All systems reviewed & no additional complaints except as documented Physical Exam General General appearance: alert and in no apparent distress Head Head exam: atraumatic and normocephalic Eye Eye exam: Present PERRL and EOMI ENT ENT exam: Present mucous membranes moist Neck Neck exam: Present normal inspection Chest Chest inspection: Present normal inspection and symmetric chest wall rise Respiratory Respiratory exam: Present normal lung sounds bilaterally; Absent respiratory distress Cardiovascular Cardiovascular exam: Present regular rate and normal rhythm Abdominal Exam Abdominal exam: Present soft; Absent tenderness Extremities Exam Extremities exam: Present normal inspection Neurological Exam Neurological exam: Present alert and oriented X3 Psychiatric Psychiatric exam: Present normal affect Skin Skin exam: Present warm and dry Medical Decision Making Medical Records Medical records reviewed: Yes I reviewed the patient's medical records. Screening: Per USPSTF and CDC recommendations, given the prevalence of disease in our region, it is our hospital?s policy to screen for HIV and viral Hepatitis for all patients aged 18 and over and those with ongoing risk factors. Molina Inquiry Pt receiving controlled substance: No Molina was queried for this patient: No Vital Signs: 12/24/24 16:48 12/24/24 17:01 Temperature 98.4 F Temperature Source Oral Pulse Rate 65 Pulse Rate [Right Brachial] 66 Respiratory Rate 17 Blood Pressure 126/70 Blood Pressure [Right Arm] 129/79 Blood Pressure Mean [Right Arm] 95 Blood Pressure Source [Right Arm] Automatic Cuff Blood Pressure Position [Right Arm] Sitting 02 Sat by Pulse Oximetry 97 97 Oxygen Delivery Method Room Air Lab Data Lab results reviewed: Yes I reviewed the patient's lab results. Lab Results 12/24/24 16:58: WBC 12.3 H, RBC 4.62, Hgb 14.2, Hct 39.9, MCV 86.4, MCH 30.7, M CHC 35.6 H, RDW 12.9, Plt Count 291, MPV 10.0, Neut % (Auto) 66.0, Lymph % (Auto) 23.9, Mclean % (Auto) 7.4, Eos % (Auto) 1.5, Baso % (Auto) 0.6, Neut # (Auto) 8.1 H, Lymph # (Auto) 2.9, Mclean # (Auto) 0.9, Eos # (Auto) 0.2, Baso # (Auto) 0.1, Sodium 138, Potassium 2.9 L*, Chloride 97 L, Carbon Dioxide 30, Anion Gap 13.9, BUN 14, Creatinine 1.10 H, Estimated Creat Clear 83, Estimated GFR 54 L, Est GFR ( Amer) 66, Glucose 93, Calcium 9.6, Magnesium 1.7, Total Bilirubin 0.5, AST 29, ALT 20, Alkaline Phosphatase 90, Total Protein 8.1, Albumin 4.9, Globulin 3.2, Albumin/Globulin Ratio 1.5 12/24/24 16:58 12/24/24 16:58 Orders (Tests/Meds): ED MEDICATIONS Discontinued Medications Generic Name Dose Route Start Last Admin Trade Name Freq PRN Reason Stop Dose Admin Potassium Chloride 40 meq 12/24/24 17:27 12/24/24 17:57 Potassium Chloride 20meq Tab PO 12/24/24 17:28 40 meq ONCE ONE Administration ORDERS Category Date Time Status Complete Blood Count Auto Diff Stat Lab 12/24/24 16:58 Completed Comprehensive Metabolic Panel Stat Lab 12/24/24 16:58 Completed MAG [Magnesium] Stat Lab 12/24/24 16:58 Completed Urinalysis and Microscopic Stat Lab 12/24/24 16:53 Ordered Medical Decision Narrative: 44-year-old female presents to the emergency department concern for hypokalemia, see HPI for detail past medical history, differential diagnose include but not limited to, electrolyte disturbance, acute hypovolemia, cardiac arrhythmia, medication noncompliance, among others. I discussed this patient's case with the attending physician Dr. Michaud Will obtain basic laboratory studies, magnesium level, EKG and urinalysis. CMP noted for mild hypokalemia at 2.9, mild creatinine elevation 1.1, will give 40 mEq p.o. potassium. CBC is noted for mild leukocytosis of 12.3 otherwise unremarkable CBC CMP otherwise unremarkable magnesium level within normal limit. I discussed the results with the patient and family at the bedside, patient would like to forego urinalysis at this time, patient has no EKG changes, patient's potassium level is trending upwards, patient has 40 mg with potassium at home which I advised her to take, follow-up with PCP in the upcoming days for repeat potassium level, patient was given strict ED return precautions. Like to forego urinalysis, she decision-making was utilized. Forego urinalysis as would not change manager at this time. Patient family voiced understanding and agreement with the current treatment plan/discharge plan. Critical Care Critical Care Time Critical Care Time: No
[2024-12-24 17:01] VITALS: BP 126/70; PULSE 65; O2SAT 97
--- NOTE | 2024-12-24 17:01 | ECG_ITS ---
APPROVED REPORT Exam: Resting ECG HR:62 bpm ECG Measurements Heart Rate 62 AXES CA 187 P 85 QRSd 85 QRS 77 QT 425 T 72 QTc 429 Conclusion SINUS RHYTHM NONSPECIFIC ST & T-WAVE ABNORMALITY BORDERLINE ECG UNCONFIRMED REPORT Electronically signed by : LILIAN GAY, 12/26/2024 06:58:40
[2024-12-24 17:06] LABS: Hematocrit 39.9 % (37.0-47.0); Hemoglobin 14.2 g/dL (12.2-16.2); Immature Granulocytes % 0.6 %; Mean Corpuscular HGB Conc 35.6 g/dL (31.8-35.4); Mean Corpuscular Hemoglobin 30.7 pg (27.0-31.2); Mean Corpuscular Volume 86.4 fl (81-99); Nucleated Red Blood Cells % 0 %; Platelet Count 291 K/mm3 (142-424); Red Blood Count 4.62 M/mm3 (4.20-5.40); Red Cell Distribution Width-SD 40.2 fL; White Blood Count 12.3 K/mm3 (4.8-10.8)
[2024-12-24 17:13] LABS: Albumin Level 4.9 g/dl (3.5-5.0); Chloride 97 mmol/L (98-107); Sodium 138 mmol/L (136-145)
[2024-12-24 17:16] LABS: Alanine Aminotransferase 20 U/L (12-78); Albumin/Globulin Ratio 1.5 (1.1-1.8); Alkaline Phosphatase 90 U/L (38-126); Anion Gap 13.9 mEq/L (5-15); Aspartate Amino Transferase 29 U/L (14-36); Bilirubin,Total 0.5 mg/dl (0.2-1.3); Blood Urea Nitrogen 14 mg/dl (7-17); Calcium 9.6 mg/dl (8.4-10.2); Carbon Dioxide 30 mmol/L (22.0-30.0); Creatinine Clearance Estimated 83 mL/min (50-200); Creatinine,Serum 1.10 mg/dl (0.52-1.04); Estimated Glomerular Filt Rate 54 ml/min (>60); GFR (African American) 66 ML/MIN (>60); Globulin 3.2 g/dL (1.3-3.2); Glucose 93 mg/dl (74-100); Total Protein,Serum 8.1 g/dl (6.3-8.2)
[2024-12-24 17:23] LABS: Potassium 2.9 mmoL/L (3.5-5.1)
[2024-12-24 17:30] VITALS: BP 126/80; PULSE 65; RESP 17; O2SAT 99
[2024-12-24 17:34] LABS: Magnesium 1.7 mg/dl (1.6-2.3)
[2024-12-24] MEDS: POTASSIUM CHLORIDE 20MEQ TAB 40 MEQ PO (17:57)
[2024-12-24 17:59] VITALS: BP 138/74; PULSE 77; RESP 22; O2SAT 95
[2024-12-24 18:37] VITALS: BP 138/74; PULSE 65; RESP 18; TEMP 36.8; O2SAT 97
== END 2024-12-24 18:38 | disposition home or self-care (01) ==
PROVIDERS: Physician Assistant; Emergency Provider Student in an Organized Health Care Education/Training Program; PCP Nurse Practitioner Family
DX: E87.6 Hypokalemia (principal); E78.5 Hyperlipidemia, unspecified; I10 Essential (primary) hypertension; F17.210 Nicotine dependence, cigarettes, uncomplicated
CPT/HCPCS: 80053; 83735; 85025; 93005; 99283; 99284

== ENCOUNTER 2024-12-27 10:14 | Outpatient (CLI) | payer BC, SELFPAY ==
--- OUTSIDE RECORDS SUMMARY | 2024-11-08 08:06 | XMS_ITS | Encounter Summary ---
Author Organization [facility] Address [address] [place] [address] Care Team Providers Care Midwife Practitioner Name Role Phone Cristela Ceja APRN Primary Care Provider [phone] Reason for Referral * Diagnostic Imaging (Routine) - Closed Specialty Diagnoses / Procedures Referred By Saumya huizar Referred To Contact Radiology Diagnoses Breast cancer screening, high risk patient Abnormal magnetic resonance imaging of breast Procedures Mammo Diagnostic Digital Tomosynthesis Left With CAD Rita Araya APRN [address] [facility] [address] [place] [address] Phone: tel: fax: Referral ID Status Reason Start Date Expiration Date Visits Re quested Visits Authorized Closed 10/15/2024 01/14/2026 1 1 Reason for Visit * Diagnostic Imaging (Routine) - Closed Specialty Diagnoses / Procedures Referred By Saumya huizar Referred To Contact Radiology Diagnoses Breast cancer screening, high risk patient Abnormal magnetic resonance imaging of breast Procedures Mammo Diagnostic Digital Tomosynthesis Left With CAD Rita Araya APRN [address] [facility] [address] [place] [address] Phone: tel: fax: Referral ID Status Reason Start Date Expiration Date Visits Re quested Visits Authorized Closed 10/15/2024 01/14/2026 1 1 Encounter Details Date Type Department Care Team (Latest Contact Info) Description 11/08/2024 8:06 AM EDT - 11/08/2024 11:59 PM EDT Hospital Encounter [facility] [address] [place] [address] Breast cancer screening, high risk patient; Abnormal magnetic resonance imaging of breast Discharge Disposition: Home or Self Care Social [...] Description 03/13/2025 11:15 AM EST Office Visit [facility] [address] [facility] [address] [place] [address] Alexey Lee MD [address] [facility] [address] [place] [address] 04/21/2025 10:20 AM EST Appointment [facility] [address] [place] [phone] 08/29/2025 9:30 AM EDT Office Visit [facility] [address] [facility] [address] [place] [phone] Rita Araya APRN [address] [facility] [address] [place] [address] documented as of this encounter Procedures Procedure Name Priority Date/Time Associated Diagnosis Comments MAMMO DIAGNOSTIC DIGITAL TOMOSYNTHESIS LEFT W CAD Routine 11/08/2024 8:54 AM EDT Breast cancer screening, high risk patient Abnormal magnetic resonance imaging of breast documented in this encounter Results * (ABNORMAL) Mammo Diagnostic Digital Tomosynthesis Left With CAD (11/08/2024 8:54 AM EDT) Anatomical Region Laterality Modality Breast Left Mammography 11/08/2024 10:0 1 AM EDT Impressions 11/08/2024 11:05 AM EDT BI-RADS 4 suspicious abnormality left breast RECOMMENDATION: Ultrasound-guided core biopsy of 2 masses in the left breast using a 12-gauge marquee device. The standard false-negative rate of mammography is between 10% and 25%. Complex patterns or increased breast density will markedly elevate the false-negative rate of mammography. A results letter, in lay terminology, will be given to the patient at the conclusion of the exam. Physician Order Ultrasound Guided Breast Biopsy x2 Diagnosis: Abnormal Mammogram 11/08/2024 11:[address] Lucina Ramirez MD on Narrative 11/08/2024 11:05 AM EDT EXAMINATION:MAMMO DIAGNOSTIC DIGITAL TOMOSYNTHESIS LEFT W CAD-AND TARGETED LEFT BREAST ULTRASOUND HISTORY: 44-year-old female who underwent baseline High risk screening breast MRI October 11, 2024 for second look ultrasound was recommended as well as diagnostic left mammogram for 2 possible masses versus overlapping vascular structures. TECHNIQUE: Combination 2D 3D standard views of the left breast as well as targeted left breast ultrasound COMPARISON: Prior left mammograms dating back to the patient's baseline left mammogram of 03/23/2021 as well as prior breast ultrasounds. Comparison was made to breast MRI dated October 11, 2024. FINDINGS: There are scattered areas of fibroglandular density. No suspicious masses microcalcifications or areas of architectural distortion identified in the left breast. Targeted left breast ultrasound was performed. Corresponding to the mass at 6:00 in the left breast is 8.93 cm oval hypoechoic mass with smooth margins. Corresponding to the mass in the left breast on MRI in the upper inner quadrant is a 7 mm oval hypoechoic mass at 11:00 5 to 6 cm from the nipple. This mass appears to have increased slightly when compared to prior ultrasounds given the change in scanning and measurement technique. us Lucina Ramirez MD IMG MAMMOGRAPHY ORDERABLES Final Result documented in this encounter Visit Diagnoses Diagnosis Breast cancer screening, high risk patient Screening mammogram for high-risk patient Abnormal magnetic resonance imaging of breast documented in this encounter Care Teams Midwife Practitioner Relationship Specialty Start Date End Date Marcial JESSY Archibald [address] [place] [address] [place] [address] PCP - General Nurse Practitioner 05/19/23 documented as of this encounter
--- OUTSIDE RECORDS SUMMARY | 2024-11-08 08:07 | XMS_ITS | Encounter Summary ---
Author Organization [facility] Address [address] [place] [address] Care Team Providers Care Electrical Estimator Name Role Phone Cristela Ceja APRN Primary Care Provider [phone] Reason for Referral * Diagnostic Imaging (Routine) - Closed Specialty Diagnoses / Procedures Referred By Saumya huizar Referred To Contact Radiology Diagnoses Breast cancer screening, high risk patient Abnormal magnetic resonance imaging of breast Procedures US Guided Breast Biopsy With & Without Device initial Rita Araya APRN [address] [facility] [address] [place] [address] Phone: tel: fax: Referral ID Status Reason Start Date Expiration Date Visits Re quested Visits Authorized Closed 10/15/2024 01/14/2026 1 1 Reason for Visit * Diagnostic Imaging (Routine) - Closed Specialty Diagnoses / Procedures [facility] Referred To Contact Radiology Diagnoses Breast cancer screening, high risk patient Abnormal magnetic resonance imaging of breast Procedures US Guided Breast Biopsy With & Without Device initial Rita Araya APRN [address] [facility] [address] [place] [address] Phone: tel: fax: Referral ID Status Reason Start Date Expiration Date Visits Re quested Visits Authorized [id number] Closed 10/15/2024 01/14/2026 1 1 Encounter Details Date Type Department Care Team (Latest Contact Info) Description 11/08/2024 8:07 AM EDT - 11/08/2024 11:59 PM EDT Hospital Encounter [facility] [address] [place] [address] Breast cancer screening, high risk [...] Description 03/13/2025 11:15 AM EST Office Visit [facility] [address] [facility] [address] [place] [address] Alexey Lee MD [address] [facility] [address] [place] [address] 04/21/2025 10:20 AM EST Appointment [facility] [address] [place] [phone] 08/29/2025 9:30 AM EDT Office Visit [facility] [address] [facility] [address] [place] [phone] Rita Araya APRN [address] [facility] [address] [place] [address] documented as of this encounter Procedures Procedure [...] Ramirez MD on us Lucina Ramirez MD [facility] ORDER[place]LES Final Res ult * Tissue Pathology Exam (11/08/2024 10:35 AM EDT) Case Report Surgical Pathology Report Case: [id number] Authorizing Provider: Lucina Ramirez MD Collected: 11/08/2024 10:35 AM Ordering Location: [facility] Received: 11/08/2024 12:08 PM [facility] [address] Pathologist: Pedro Wray MD Specimen: Breast, Left, Left breast 6:00 9mm mass 11/11/2024 10:25 AM EDT [facility] Clinical Information Breast 6:00 9 mm mass 11/11/2024 10:25 AM EDT [facility] Final Diagnosis LEFT BREAST, 6:00, BIOPSY: 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 11/11/2024 10:25 AM EDT [facility] Gross Description 1. Breast, Left. Received [...] 72 hours. HDM 11/11/2024 10:25 AM EDT [facility] Microscopic Description The slides are reviewed and demonstrate histopathologic features supporting the above rendered diagnosis. 11/11/2024 10:25 AM EDT [facility] Tissue Left breast structure / Unknown Collection / Unknown 11/08/2024 10:35 AM EDT 11/08/2024 12:08 PM EDT us Lucina Ramirez MD PATHOLOGY/CYTOLOGY ORDERABL ES Final Result [facility]
[address] [place] [address], documented in this encounter Visit Diagnoses Diagnosis [...] EDT 1 mL lidocaine 1% - EPINEPHrine 1:357264 (XYLOCAINE W/EPI) 1 %-1:551741 injection 10 mL 10 mL, Injection, Once, On Mon11/08/24 at 0941, For 1 dose Given 11/08/2024 10:30 AM EDT 1 mL documented in this encounter Care Teams Electrical Estimator Relationship Specialty Start Date End Date Cristela Ceja JESSY [address] [place] [address] [place] [address] PCP - General Nurse Practitioner 05/19/23 documented as of this encounter
--- OUTSIDE RECORDS SUMMARY | 2024-11-08 09:37 | XMS_ITS | Encounter Summary ---
Author Organization [facility] Address [address] [place] [address] Care Team Providers Care Junior Loan Processor Name Role Phone Cristela Ceja APRN Primary Care Provider [phone] Reason for Referral * Diagnostic Imaging (Routine) - Pending Review Specialty Diagnoses / Procedures Referred By [facility] Referred To Contact Radiology Diagnoses Breast cancer screening, high risk patient Abnormal magnetic resonance imaging of breast Procedures US Guided Breast Biopsy With & Without Device Each Additional Rita Araya APRN [address] [facility] [address] [place] [address] Phone: tel: fax: Referral ID Status Reason Start Date Expiration Date V isits Requested Visits Authorized Pending Review 11/08/2024 02/07/2026 1 1 Reason for Visit * Diagnostic Imaging (Routine) - Pending Review Specialty Diagnoses / Procedures Referred By [facility] Referred To Contact Radiology Diagnoses Breast cancer screening, high risk patient Abnormal magnetic resonance imaging of breast Procedures US Guided Breast Biopsy With & Without Device Each Additional Rita Araya APRN [address] [facility] [address] [place] [address] Phone: tel: fax: Referral ID Status Reason Start Date Expiration Date V isits Requested Visits Authorized Pending Review 11/08/2024 02/07/2026 1 1 Encounter Details Date Type Department Care Team (Latest Contact Info) Description 11/08/2024 9:37 AM EDT - 11/08/2024 11:59 PM EDT Hospital Encounter [facility] [address] [place] [address] Breast cancer screening, high risk [...] Description 03/13/2025 11:15 AM EST Office Visit [facility] [address] [facility] [address] [place] [address] Alexey Lee MD [address] [facility] [address] [place] [phone] 04/21/2025 10:20 AM EST Appointment [facility] [address] [place] [phone] 08/29/2025 9:30 AM EDT Office Visit [address] [phone] Rita Araya APRN 3000 [facility] [address] [place] [address] documented as of this encounter Procedures Procedure [...] Ramirez MD on us Lucina Ramirez MD [facility] ORDERABLES Final Res ult * Tissue Pathology Exam (11/08/2024 10:43 AM EDT) Case Report Surgical Pathology Report Case: [id number] Authorizing Provider: Lucina Ramirez MD Collected: 11/08/2024 10:43 AM Ordering Location: [facility] Received: 11/08/2024 12:09 PM [facility] [address] Pathologist: Pedro Wray MD Specimen: Breast, Left, Left breast 11:00 7mm mass 11/11/2024 10:25 AM EDT [facility] Clinical Information Breast cancer screening, high risk patient, abnormal MRI, left breast 11:00 7 mm mass 11/11/2024 10:25 AM EDT [facility] Final Diagnosis LEFT BREAST, 11:00, 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 11/11/2024 10:25 AM EDT [facility] Gross Description 1. Breast, [...] 72 hours. HDM 11/11/2024 10:25 AM EDT [facility] Microscopic Description The slides are reviewed and demonstrate histopathologic features supporting the above rendered diagnosis. 11/11/2024 10:25 AM EDT [facility] Tissue Left breast structure / Unknown Collection / Unknown 11/08/2024 10:43 AM EDT 11/08/2024 12:09 PM EDT us Lucina Ramirez MD PATHOLOGY/CYTOLOGY ORDERABL ES Final Result [facility]
[address] [place] [address], documented in this encounter Visit Diagnoses Diagnosis [...] EDT 1 mL lidocaine 1% - EPINEPHrine 1:684141 (XYLOCAINE W/EPI) 1 %-1:329321 injection 10 mL 10 mL, Injection, Once, On Mon11/08/24 at 0943, For 1 dose Given 11/08/2024 10:38 AM EDT 1 mL documented in this encounter Care Teams Junior Loan Processor Relationship Specialty Start Date End Date Cristela Ceja APRN [address] [place] [address] PCP - General Nurse Practitioner 05/19/23 documented as of this encounter
--- OUTSIDE RECORDS SUMMARY | 2024-11-08 09:42 | XMS_ITS | Encounter Summary ---
Author Organization [facility] Address [address] [place] [address] Care Team Providers Care Orchard Sprayer Name Role Phone Cristela Ceja APRN Primary Care Provider [phone] Reason for Referral * Diagnostic Imaging (Routine) - Pending Review Specialty Diagnoses / Procedures Referred By Contac t Referred To Contact Radiology Diagnoses Breast cancer screening, high risk patient Abnormal magnetic resonance imaging of breast Procedures Mammo Post Device Placement Left Rita Araya APRN [address] [facility] [address] [place] [address] Phone: tel: fax: Referral ID Status Reason Start Date Expiration Date V isits Requested Visits Authorized [id number] Pending Review 11/08/2024 02/07/2026 1 1 Reason for Visit * Diagnostic Imaging (Routine) - Pending Review Specialty Diagnoses / Procedures Referred By Contandrew t Referred To Contact Radiology Diagnoses Breast cancer screening, high risk patient Abnormal magnetic resonance imaging of breast Procedures Mammo Post Device Placement Left Rita Araya APRN [address] [facility] [address] [place] [address] Phone: tel: fax: Referral ID Status Reason Start Date Expiration Date V isits Requested Visits Authorized Pending Review 11/08/2024 02/07/2026 1 1 Encounter Details Date Type Department Care Team (Latest Contact Info) Description 11/08/2024 9:42 AM EDT - 11/08/2024 11:59 PM EDT Hospital Encounter [facility] [address] [place] [address] Breast cancer screening, high risk patient; Abnormal [...] Description 03/13/2025 11:15 AM EST Office Visit [facility] [address] [facility] [address] [place] [address] Alexey Lee MD [address] [facility] [address] [place] [address] 04/21/2025 10:20 AM EST Appointment [facility] [address] [place], [place] [address] [address] 08/29/2025 9:30 AM EDT Office Visit [facility] [address] [facility] [address] [place] [phone] Rita Araya APRN [address] [facility] [address] [place] [address] documented as of this encounter Procedures Procedure [...] breast documented in this encounter Care Teams Orchard Sprayer Relationship Specialty Start Date End Date Cristela Ceja APRN [address] [place] [address] PCP - General Nurse Practitioner 05/19/23 documented as of this encounter
[2024-12-27 18:02] LABS: Chloride 100 mmol/L (98-107); Potassium 3.5 mmoL/L (3.5-5.1); Sodium 137 mmol/L (136-145)
[2024-12-27 18:05] LABS: Anion Gap 12.5 mEq/L (5-15); Blood Urea Nitrogen 12 mg/dl (7-17); Calcium 9.2 mg/dl (8.4-10.2); Carbon Dioxide 28 mmol/L (22.0-30.0); Creatinine,Serum 1.10 mg/dl (0.52-1.04); Estimated Glomerular Filt Rate 54 ml/min (>60); GFR (African American) 66 ML/MIN (>60); Glucose 95 mg/dl (74-100)
--- OUTSIDE RECORDS SUMMARY | 2024-12-30 10:16 | XMS_ITS | Encounter Summary ---
Author Organization [facility] Address [address] [place] [address] Care Team Providers Care Manager Aerospace Name Role Phone Cristela Ceja JESSY Primary Care Provider [phone] Encounter Details Date Type Department Care Team [...] Description 03/13/2025 11:15 AM EST Office Visit [facility] [address] [facility] [address] [place] [address] Alexey Lee MD [address] [facility] [address] [place] [address] 04/21/2025 10:20 AM EST Appointment [facility] [place] [address] 08/29/2025 9:30 AM EDT Office Visit [facility] [address] [facility] [address] [place] [address] Rita Araya APRN [address] [facility] [address] [place] [address] documented as of this encounter Visit Diagnoses Not on filedocumented in this encounter Care Teams Manager Aerospace Relationship Specialty Start Date End Date Cristela Ceja APRN [address] [place] [address] PCP - General Nurse Practitioner 05/19/23 documented as of this encounter
--- OUTSIDE RECORDS SUMMARY | 2024-12-30 10:16 | XMS_ITS | Encounter Summary ---
Author Organization [facility] Address [address] [place] [address] Care Team Providers Care Product Scientist Name Role Phone Marcial Cristela JESYS Primary Care Provider [phone] Encounter Details Date Type Department Care Team (Late st Contact Info) Description 11/11/2024 Telephone [place] [phone] Gina Mills RN Social History Tobacco Use [...] 11:15 AM EST Office Visit [facility] [address] [facility] [address] [place] [address] Alexey Lee MD [address] [facility] [address] [place] [address] 04/21/2025 10:20 AM EST Appointment [facility] [place] [address] 08/29/2025 9:30 AM EDT Office Visit [facility] [address] [facility] [address] [place] [address] Rita Araya APRN [address] [facility] [address] [place] [address] documented as of this encounter Visit Diagnoses Not on filedocumented in this encounter Care Teams Product Scientist Relationship Specialty Start Date End Date Cristela Ceja APRN [address] [place] [address] PCP - General Nurse Practitioner 05/19/23 documented as of this encounter
--- OUTSIDE RECORDS SUMMARY | 2024-12-30 10:16 | XMS_ITS | Clinical Summary ---
Author Organization [facility] Address [address] [place] [address] Care Team Providers Care Sterile Instrument Technician Name Role Phone Cristela Ceja APRN Primary Care Provider [phone] Allergies No known active allergies Medications FLUoxetine [...] Type Department Care Team Description 11/11/2024 Telephone [facility] [address] [place] [address] Gina Mills RN 11/08/2024 9:42 AM EDT - 11/08/2024 11:59 PM EDT Hospital Encounter [facility] [address] [place] [address] Breast cancer screening, high risk patient; Abnormal magnetic resonance imaging of breast Discharge Disposition: Home or Self Care 11/08/2024 9:37 AM EDT - 11/08/2024 11:59 PM EDT Hospital Encounter [facility] [address] [facility] [address] [place] [address] Breast cancer screening, high risk patient; Abnormal magnetic resonance imaging of breast Discharge Disposition: Home or Self Care 11/08/2024 8:07 AM EDT - 11/08/2024 11:59 PM EDT Hospital Encounter [facility] [address] [facility] [address] [place] [address] Breast cancer screening, high risk patient; Abnormal magnetic resonance imaging of breast Discharge Disposition: Home or Self Care 11/08/2024 8:06 AM EDT - 11/08/2024 11:59 PM EDT Hospital Encounter [facility] [address] [facility] [address] [place] [address] Breast cancer screening, high risk patient; Abnormal magnetic resonance imaging of breast Discharge Disposition: Home or Self Care 11/08/2024 Travel 10/15/2024 Telephone [facility] MRI AT [address] [id number] Stephanie Serna 10/11/2024 8:22 AM EDT - 10/11/2024 11:59 PM EDT Hospital Encounter [facility] MRI AT [address] [address] Rita Araya APRN At high risk for [...] Description 03/13/2025 11:15 AM EST Office Visit [facility] [address] [facility] [address] [place] [address] Alexey Lee MD [address] [facility] [address] [place] [address] 04/21/2025 10:20 AM EST Appointment [facility] [place] [address] 08/29/2025 9:30 AM EDT Office Visit [facility] [address] [facility] [address] [place] [address] Rita Araya APRN [address] [facility] [address] [place], [place] [address] Health Maintenance Due Date Last Done Comments [...] Ramirez MD on us Lucina Ramirez MD [facility] US ORDERABLES Final Res ult * Mammo [...] included. 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 11/11/2024 10:25 AM EDT [facility] Gross Description 1. [...] 72 hours. HDM 11/11/2024 10:25 AM EDT [facility] Microscopic Description The slides are reviewed and demonstrate histopathologic features supporting the above rendered diagnosis. 11/11/2024 10:25 AM EDT [facility] Tissue Left breast structure / Unknown Collection / Unknown 11/08/2024 10:43 AM EDT 11/08/2024 12:09 PM EDT us Lucina Ramirez MD PATHOLOGY/CYTOLOGY ORDERABL ES Final Result [facility]
[address] [place] [address], * (ABNORMAL) Mammo Diagnostic Digital Tomosynthesis Left [...] images were also obtained. A CAD system (Clipik) was utilized for data analysis. This examination [...] No axillary adenopathy is appreciated. Rita Araya MILLER APPRENTICE [facility] MRI ORDERABLES Final R esult * LIQUID-BASED PAP SMEAR WITH HPV GENOTYPING IF ASCUS (FRANKIE,COR,MAD) (08/09/2022 5:56 PM EDT) Reference Lab Report [facility] [address] [place] [address] or [phone] Hernan Nielsen M.D., Psychologist PATIENT NAME LABORATORY NO. TORI VÁSQUEZ. [id number] AGE SEX SSN CLIENT REF # [facility] 40 1980 F [id number] [address] [facility] [id number] MT[place]. [place] [address] ESEQUIEL WALDRON DATE COLLECTED DATE RECEIVED DATE [...] significance on cytologic smear of cervix (ASC-US) MANAGER OF REGULATORY AFFAIRS: SHREYA SHARIF (ASCP) CPT CODES: 02848 08/12/2022 5:42 AM EDT [facility] ThinPrep Vial Cervix uteri structure / Unknown Collection / Unknown 08/09/2022 5:56 PM EDT 08/09/2022 5:56 PM EDT us Esequiel Waldron MD PATHOLOGY/CYTOLOGY ORDERABLES F inal Result [facility]
[address] [place] [address], * SCANNED - PAP SMEAR (06/25/2021) us Esequiel Waldron MD CHART REVIEW TABS Final Resu lt from Last 3 Months or Most Recently Relevant to Health Maintenance [facility] PPO Care Teams Sterile Instrument Technician Relationship Specialty Start Date End Date Cristela Ceja APRN [address] [place] [address] [place] [address] PCP - General Nurse Practitioner 05/19/23
== END 2024-12-27 23:59 ==
LOC: LAB.DROPOF 12-30 10:14
PROVIDERS: PCP Nurse Practitioner Family; Visit Provider Nurse Practitioner Family
DX: E87.6 Hypokalemia (principal)
CPT/HCPCS: 80048

== ENCOUNTER 2025-03-05 16:15 | Outpatient (CLI) | payer BC, SELFPAY ==
[2025-03-05 18:54] LABS: Anion Gap 12.7 mEq/L (5-15); Blood Urea Nitrogen 21 mg/dl (7-17); Calcium 9.3 mg/dl (8.4-10.2); Carbon Dioxide 26 mmol/L (22.0-30.0); Chloride 98 mmol/L (98-107); Cholesterol 193 mg/dl (140-200); Creatinine,Serum 1.20 mg/dl (0.52-1.04); Estimated Glomerular Filt Rate 49 ml/min (>60); GFR (African American) 59 ML/MIN (>60); Glucose 92 mg/dl (74-100); HDL Cholesterol 33 mg/dl (40-60); Potassium 3.7 mmoL/L (3.5-5.1); Sodium 133 mmol/L (136-145); Triglycerides 398 mg/dl (30-150)
[2025-03-05 19:28] LABS: Hemoglobin A1C 5.6 % (4.0-6.0)
--- OUTSIDE RECORDS SUMMARY | 2025-03-06 20:23 | XMS_ITS | Clinical Summary ---
Author Organization [facility] Address [address] [place] [address] Care Team Providers Care Certified Professional Ergonomist Name Role Phone Cristela Ceja APRN Primary Care Provider [phone] Allergies No known active allergies Medications FLUoxetine [...] At high risk for breast cancer 08/30/2024 Family History Medical History Relation Name Comments [...] Office Visit [facility] [address] [place] [address] Alexey Lee MD [address] [facility] [address] [place] [address] 04/21/2025 10:20 AM EST Appointment [facility] [place] [address] 08/29/2025 9:30 AM EDT Office Visit [facility] [address] [facility] [address] [place] [address] Rita Araya APRN [address] [facility] [address] [place] [address] Health Maintenance Due Date Last Done Comments Pneumococcal Vaccine 0-49 (1 of 2 - PCV) 2000 ANNUAL PHYSICAL 02/02/2021 HEPATITIS C SCREENING 02/02/2021 Annual Gynecologic Pelvic an d Breast Exam 06/26/2022 06/25/2021, 02/02/2021 PAP SMEAR 08/10/2023 08/09/2022, 12/31, 06/25/2021, Additional history exists INFLUENZA VACCINE 11/29/2024 Annual Breast MRI 10/11/2025 10/11/2024 MAMMOGRAM TCS [...] Recently Relevant to Health Maintenance Results * (ABNORMAL) Mammo Diagnostic Digital Tomosynthesis [...] images were also obtained. A CAD system (Netzoptiker) was utilized for data analysis. This examination [...] software. No axillary adenopathy is appreciated. us Rtia Araya APRN IMG MRI ORDERABLES Final R esult * LIQUID-BASED PAP SMEAR WITH HPV GENOTYPING IF ASCUS (FRANKIE,COR,MAD) (08/09/2022 5:56 PM EDT) Reference Lab Report [facility] [address] [place] [address] or [phone] Hernan Nielsen M.D., Range Scientist PATIENT NAME LABORATORY NO. [address] TORI ROSAS. [id number] AGE SEX SSN CLIENT REF # [facility] 41 1980 F [id number] [address] [facility] [address] REQUEST[address] Amairani. [place] [address] ESEQUIEL WALDRON DATE COLLECTED DATE RECEIVED DATE [...] significance on cytologic smear of cervix (ASC-US) SR COMMUNITY MANAGER: SHREYA SHARIF (ASCP) CPT CODES: 71998 08/12/2022 5:42 AM EDT [facility] ThinPrep Vial Cervix uteri structure / Unknown Collection / Unknown 08/09/2022 5:56 PM EDT 08/09/2022 5:56 PM EDT Esequiel Waldron MD PATHOLOGY/CYTOLOGY ORDERABLES F inal Result [facility]
[address] [place] [address], * SCANNED - PAP SMEAR (06/25/2021) Esequiel Waldron MD CHART REVIEW TABS Final Resu lt from Last 3 Months or Most Recently Relevant to Health Maintenance Insurance [facility] PPO Member Subscriber Plan / Payer (Ef fective 2021-Present) Name:Tori Rosas Relation to Subscriber:Self Name:Tori Rosas Payer ID:[id number] (NAIC) Type:Not on file Address: [address] [place] [id number] Care Teams Certified Professional Ergonomist Relationship Specialty Start Date End Date Cristela Ceja APRN [address] [place] [address] PCP - General Nurse Practitioner 05/19/23
== END 2025-03-05 23:59 | disposition home or self-care (01) ==
LOC: LAB.DROPOF 03-06 20:21
PROVIDERS: PCP Nurse Practitioner Family; Visit Provider Nurse Practitioner Family
DX: E78.5 Hyperlipidemia, unspecified (principal); E11.9 Type 2 diabetes mellitus without complications; I10 Essential (primary) hypertension
CPT/HCPCS: 80048; 80061; 83036